=== PATIENT | female | born 1955 | race Caucasian/White ===

== ENCOUNTER 2018-01-20 11:58 | Outpatient (CLI) | payer MEDICARE, MEDICAID | END 2018-01-20 11:59 | disposition critical access hospital (66) | LOC: EMS 11:58 | PROVIDERS: ATTEND Surgery | DX: M54.5 Low back pain (principal); W00.0XXA Fall on same level due to ice and snow, initial encounter; Y93.01 Activity, walking, marching and hiking | CPT/HCPCS: A0425; A0429 ==

== ENCOUNTER 2018-01-20 12:36 | Emergency (ER) | payer MEDICARE, MEDICAID ==
[2018-01-20 12:54] VITALS: BP 172/107
--- NOTE | 2018-01-20 13:01 | ED Physician Documentation ---
PD HPI BACK INJURY - Stated complaint Stated Complaint: GLF - History obtained from History obtained from: Patient, EMS - History of Present Illness Type of injury: Fall (Slip and fall directly onto her back on the ice, she actually has no pain and was able to get up and walk around but an ambulance was called by a bystander. 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 HEENT: Tonsil/Adenoidectomy - Present Medications Home Medications: Ambulatory Orders Medication Instructions Recorded Confirmed Folic Acid 0.4 mg PO DAILY 04/11/13 04/11/13 Losartan [Cozaar] 25 mg PO DAILY 04/11/13 04/11/13 Montelukast [Singulair] 10 mg PO DAILY 04/11/13 04/11/13 lamoTRIgine [Lamotrigine] 200 mg PO DAILY 04/11/13 04/11/13 - Allergies Allergies/Adverse Reactions: Allergies Allergy/AdvReac Type Severity Reaction Status Date / Time No Known Drug Allergies Allergy Verified 04/12/13 11:32 - Social History Does the pt smoke?: No Smoking Status: Never smoker PD ED PE NORMAL - Vitals Vital signs reviewed: Yes - General General: Alert and oriented X 3, No acute distress - HEENT HEENT: PERRL, EOMI - Neck Neck: Supple, no meningeal sign, No bony TTP - Back Back: No CVA TTP, No spinal TTP - Neuro Neuro: Alert and oriented X 3, Normal speech - Psych Psych: Normal mood, Normal affect Results - Vitals Vitals: Vital Signs - 24 hr 01/20/18 12:50 Temperature 36.3 C L Heart Rate 70 Respiratory 16 Rate Blood Pressure 172/107 H O2 Saturation 99 Oxygen O2 Source Room air PD MEDICAL DECISION MAKING - ED course ED course: She presents after a ground-level fall without apparent injury, she has no bony tenderness of the spine and moved around both head and neck and back painlessly without any pain here and declined pain medication or imaging. Departure - Departure Disposition: 01 Home, Self Care Clinical Impression: Fall from ground level, Back sprain Condition: Good Record reviewed to determine appropriate education?: Yes Instructions: ED Low Back Pain Injury Comments: Call your doctor to arrange a follow-up appointment, make the next available appointment. In the interim, return anytime if worse or if new symptoms develop. Your blood pressure was elevated today on check into the emergency department. This does not mean that you have hypertension, it is a common phenomenon to come to the emergency department and have elevated blood pressure. I recommend that you see your primary care physician within the week to have it rechecked when you are feeling better.
== END 2018-01-20 13:16 | disposition home or self-care (01) ==
LOC: EDUNIT# → ED 12:36
DX: S33.5XXA Sprain of ligaments of lumbar spine, initial encounter (principal); W00.0XXA Fall on same level due to ice and snow, initial encounter; I10 Essential (primary) hypertension
CPT/HCPCS: 99283

== ENCOUNTER 2018-11-23 14:52 | Outpatient (CLI) | payer MEDICARE, MEDICAID | END 2018-11-23 14:53 | disposition EMS.NT | LOC: EMS 14:52 | PROVIDERS: ATTEND Surgery | DX: Z03.89 Encounter for observation for other suspected diseases and conditions ruled out (principal) ==

== ENCOUNTER 2020-03-09 14:10 | Outpatient (CLI) | payer MEDICARE, MEDICAID | END 2020-03-09 14:11 | disposition EMS.NT | LOC: EMS 14:10 | PROVIDERS: ATTEND Surgery | DX: R55 Syncope and collapse (principal) ==

== ENCOUNTER 2021-09-12 15:27 | Outpatient (CLI) | payer MEDICARE, MEDICAID | END 2021-09-12 15:28 | disposition EMS.NT | LOC: EMS 15:27 | DX: R55 Syncope and collapse (principal) ==

== ENCOUNTER 2021-09-13 12:55 | Outpatient (CLI) | payer MEDICARE, MEDICAID | END 2021-09-13 12:56 | disposition critical access hospital (66) | LOC: EMS 12:55 | DX: R55 Syncope and collapse (principal); R47.81 Slurred speech | CPT/HCPCS: A0425; A0427 ==

== ENCOUNTER 2021-09-13 14:07 | Inpatient (IN) | payer MEDICARE, MEDICAID ==
[2021-09-13 14:43] LABS: BASOPHILS % (AUTO) 0.4 %; EOSINOPHILS % (AUTO) 0.1 %; HCT - HEMATOCRIT 42.6 % (37.0-47.0); HGB - HEMOGLOBIN 13.8 g/dL (12.0-16.0); LYMPHOCYTES # (AUTO) 1.3 10^3/uL (1.5-3.5); MEAN CORPUSCULAR HEMOGLOBIN 28.6 pg (27.0-31.0); MEAN CORPUSCULAR HGB CONC 32.4 g/dL (32.0-36.0); MEAN CORPUSCULAR VOLUME 88.4 fL (81.0-99.0); MEAN PLATELET VOLUME 10.3 fL (7.9-10.8); MONOCYTES # (AUTO) 0.3 10^3/uL (0.0-1.0); MONOCYTES % (AUTO) 3.7 %; NEUTROPHILS # (AUTO) 5.8 10^3/uL (1.5-6.6); NEUTROPHILS % (AUTO) 78.5 %; PLT - PLATELET COUNT 300 10^3/uL (130-450); RED BLOOD COUNT 4.82 10^6/uL (4.20-5.40); RED CELL DISTRIBUTION WIDTH 13.2 % (12.0-15.0); WHITE BLOOD COUNT 7.4 x10^3/uL (4.8-10.8)
[2021-09-13 14:50] LABS: INR 1.1 (0.8-1.2); PT - PROTHROMBIN TIME 12.2 secs (9.9-12.6)
[2021-09-13 14:56] LABS: CK- CREATINE KINASE 56 IU/L (22-269); ETOH - ETHANOL < 5.0 mg/dL
[2021-09-13] MEDS ORDERED: IOVERSOL 320 100 ML VIAL IVP ONE ×2 (15:13→16:05)
[2021-09-13 15:19] LABS: ALBUMIN 4.3 g/dL (3.2-5.5); ALBUMIN/GLOBULIN RATIO 1.5 (1.0-2.2); CALCIUM 9.2 mg/dL (8.5-10.3); POTASSIUM 3.6 mmol/L (3.5-5.0); TOTAL PROTEIN 7.2 g/dL (6.7-8.2)
[2021-09-13 15:55] LABS: CORONAVIRUS 229E-RESP PCR NOT DETECTED; CORONAVIRUS HKU1-RESP PCR NOT DETECTED; CORONAVIRUS NL63-RESP PCR NOT DETECTED; CORONAVIRUS OC43-RESP PCR NOT DETECTED; HUMAN METAPNEUMOVIRUS NOT DETECTED; RHINOVIRUS/ENTEROVIRUS NOT DETECTED; SARS-CoV-2 -RESP PCR PANEL NOT DETECTED
[2021-09-13 15:56] LABS: B. PARAPERTUSSIS- RESP PCR PAN NOT DETECTED; B. PERTUSSIS- RESP PCR PANEL NOT DETECTED; C. PNEUMONIAE- RESP PCR PANEL NOT DETECTED; INFLUENZA A- RESP PCR PANEL NOT DETECTED; INFLUENZA B - RESP PCR PANEL NOT DETECTED; M. PNEUMONIAE- RESP PCR PANEL NOT DETECTED; PARAINFLUENZA VIRUS 1 NOT DETECTED; PARAINFLUENZA VIRUS 2 NOT DETECTED; PARAINFLUENZA VIRUS 3 NOT DETECTED; PARAINFLUENZA VIRUS 4 NOT DETECTED; RSV- RESP PCR PANEL NOT DETECTED
--- NOTE | 2021-09-13 16:13 | ED Physician Documentation ---
PD HPI ALTERED MENTAL STATUS - Stated complaint Stated Complaint: SLURRED SPEECH/SYNCOPE - Chief complaint Chief Complaint: Neuro - Additional information Additional information: Presents accompanied by EMS. They report that she had a 30-minute episode of confusion and difficulty with speech today. She was seen by EMS for similar presentation yesterday. She endorses for feeling well at this time. Otherwise relatively amnestic to the events that brought her into the emergency department today, when asked specifically why did EMS bring him in today she states "I am not sure" and is completely amnestic to the event that occurred yesterday. 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 HEENT: Tonsil/Adenoidectomy - Present Medications Home Medications: Ambulatory Orders Medication Instructions Recorded Confirmed Folic Acid 0.4 mg PO DAILY 04/11/13 04/11/13 Losartan [Cozaar] 25 mg PO DAILY 04/11/13 04/11/13 Montelukast [Singulair] 10 mg PO DAILY 04/11/13 04/11/13 lamoTRIgine [Lamotrigine] 200 mg PO DAILY 04/11/13 04/11/13 - Allergies Allergies/Adverse Reactions: Allergies Allergy/AdvReac Type Severity Reaction Status Date / Time No Known Drug Allergies Allergy Verified 09/13/21 14:17 - Social History Does the pt smoke?: No Smoking Status: Never smoker PD ED PE NORMAL - Vitals Vital signs reviewed: Yes - General General: Alert and oriented X 3 - HEENT HEENT: Atraumatic, PERRL, EOMI, Ears normal, Pharynx benign - Neck Neck: No JVD - Cardiac Cardiac: RRR - Respiratory Respiratory: No respiratory distress - Abdomen Abdomen: Normal bowel sounds - Female Female : Deferred - Rectal Rectal: Deferred - Derm Derm: Normal color - Extremities Extremities: No deformity - Neuro Neuro: Alert and oriented X 3, 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 ), Other Results - Vitals Vitals: Vital Signs - 24 hr 09/13/21 09/13/21 14:17 16:19 Temperature 36.9 C Heart Rate 102 H 87 Respiratory 20 17 Rate Blood Pressure 188/116 H 190/100 H O2 Saturation 98 99 Oxygen O2 Source Room air - EKG (time done) 1421 Rate: Rate (enter#) (92) Rhythm: NSR [place]: Normal Intervals: Normal SC QRS: Normal Ischemia: Normal ST segments Compare to prior EKG: Old EKG unavailable - Labs Labs: Laboratory Tests 09/13/21 09/13/21 09/13/21 14:35 14:35 14:35 WBC 7.4 RBC 4.82 Hgb 13.8 Hct 42.6 MCV 88.4 MCH 28.6 MCHC 32.4 RDW 13.2 Plt Count 300 MPV 10.3 Neut # (Auto) 5.8 Lymph # (Auto) 1.3 L Knott # (Auto) 0.3 Eos # (Auto) 0.0 Baso # (Auto) 0.0 Absolute Nucleated RBC 0.00 Nucleated RBC % 0.0 PT 12.2 INR 1.1 Sodium Potassium Chloride Carbon Dioxide Anion Gap BUN Creatinine Estimated GFR (MDRD) Glucose Calcium Total Bilirubin AST ALT Alkaline Phosphatase Total Creatine Kinase 56 Troponin I High Sens Total Protein Albumin Globulin Albumin/Globulin Ratio Nasal Adenovirus (PCR) Nasal B. parapertussis DNA (PCR) Nasal Coronavir 229E PCR Nasal Coronavir HKU1 PCR Nasal Coronavir NL63 PCR Nasal Coronavir OC43 PCR Nasal Enterovir/Rhinovir PCR Nasal Influenza B PCR Nasal Influenza A PCR Nasal Parainfluen 1 PCR Nasal Parainfluen 2 PCR Nasal Parainfluen 3 PCR Nasal Parainfluen 4 PCR Nasal RSV (PCR) Nasal B.pertussis DNA PCR Nasal C.pneumoniae (PCR) Neel Human Metapneumo PCR Nasal M.pneumoniae (PCR) Nasal SARS-CoV-2 (PCR) Ethyl Alcohol < 5.0 09/13/21 09/13/21 09/13/21 14:35 14:35 14:45 WBC RBC Hgb Hct MCV MCH MCHC RDW Plt Count MPV Neut # (Auto) Lymph # (Auto) Knott # (Auto) Eos # (Auto) Baso # (Auto) Absolute Nucleated RBC Nucleated RBC % PT INR Sodium 134 L Potassium 3.6 Chloride 101 Carbon Dioxide 24 Anion Gap 9.0 BUN 13 Creatinine 1.0 Estimated GFR (MDRD) 56 L Glucose 112 H Calcium 9.2 Total Bilirubin 1.0 AST 14 ALT 15 Alkaline Phosphatase 71 Total Creatine Kinase Troponin I High Sens 3.3 Total Protein 7.2 Albumin 4.3 Globulin 2.9 Albumin/Globulin Ratio 1.5 Nasal Adenovirus (PCR) NOT DETECTED Nasal B. parapertussis DNA (PCR) NOT DETECTED Nasal Coronavir 229E PCR NOT DETECTED Nasal Coronavir HKU1 PCR NOT DETECTED Nasal Coronavir NL63 PCR NOT DETECTED Nasal Coronavir OC43 PCR NOT DETECTED Nasal Enterovir/Rhinovir PCR NOT DETECTED Nasal Influenza B PCR NOT DETECTED Nasal Influenza A PCR NOT DETECTED Nasal Parainfluen 1 PCR NOT DETECTED Nasal Parainfluen 2 PCR NOT DETECTED Nasal Parainfluen 3 PCR NOT DETECTED Nasal Parainfluen 4 PCR NOT DETECTED Nasal RSV (PCR) NOT DETECTED Nasal B.pertussis DNA PCR NOT DETECTED Nasal C.pneumoniae (PCR) NOT DETECTED Neel Human Metapneumo PCR NOT DETECTED Nasal M.pneumoniae (PCR) NOT DETECTED Nasal SARS-CoV-2 (PCR) NOT DETECTED Ethyl Alcohol PD MEDICAL DECISION MAKING - ED course Complexity details: reviewed old records, reviewed results, considered differential, d/w patient ED course: After an episode of acute dysarthria and near syncope. Patient afebrile, hemodynamically stable on arrival to the emergency department. Nonfocal nonlateralizing neurologic exam. Demonstrated some perseverating speech and a slightly abnormal affect which EMS reported is consistent with her baseline. She did endorse for history of spinal meningitis at age 6 months. EKG nonacute. Labs within normal limits. CTA head and neck negative for acute occlusion. Patient did have some significant elevated blood pressure on arrival which down trended slightly during her stay in the emergency department but I did elect to treat with Lopressor. Given that it is possible that she is having recurrent transient ischemic attacks I did discuss her care with the hospital service. At this time she will be placed under an observation status for further evaluation and treatment. Departure - Departure Disposition: ED Place in Observation Clinical Impression: Altered mental status Condition: Fair
--- NOTE | 2021-09-13 16:18 | CT Report ---
PROCEDURE: ANGIO HEAD W/WO INDICATIONS: L sided facial droop CONTRAST: IV CONTRAST: Optiray 320 ml: 80 PO CONTRAST: *NO PO CONTRAST TECHNIQUE: Precontrast 4.5 mm thick angled axial sections acquired from the foramen magnum to the vertex. Afte r the administration of intravenous contrast, 1 mm thick sections acquired through the [place] of [place] is. Postcontrast 4.5 mm thick sections then re-acquired from the foramen magnum to the vertex. 3-di mensional toqobqi-ozxxosewk-nxhhbtiivq (MIP) and/or volume rendering reformats were acquired of the c entral intracranial vasculature. For radiation dose reduction, the following was used: automated ex posure control, adjustment of mA and/or kV according to patient size. COMPARISON: None FINDINGS: Image quality: Noncontrast head CT is significantly limited given motion artifact. Anterior circulation: Intracranial internal carotid arteries are normal in size and flow. The flow within the paired anterior cerebral arteries is normal and symmetric. The flow within the middle cer ebral arteries is normal and symmetric. The anterior communicating artery is seen. No aneurysms are seen. Posterior circulation: Visualized portions of the vertebral arteries demonstrate normal caliber, and join to form a normal appearing basilar artery. Flow within the posterior cerebral arteries is norm al and symmetric. Incidental note of persistent circulation on the right. No aneurysms are seen . CSF spaces: Within the limits of motion artifact on the noncontrast study. Ventricles are normal in size and shape. Basal cisterns are patent. No extra-axial fluid collections. Brain: Within the limits of motion artifact on the noncontrast study. No midline shift. No intracra nial bleeds or masses. Weiner-white matter interface appears intact. Skull and face: Calvarium and facial bones appear intact, without suspicious lesions. Sinuses: Mild mucosal thickening/mucous retention cysts within the left sphenoid sinus as well as the bilateral maxillary sinuses. IMPRESSION: Limited noncontrast examination given significant motion artifact. No acute intracranial abnormality. Unremarkable CTA of the head. Reviewed by: Terry Rodriguez DO on 09/13/2021 3:17 PM KARUNA Approved by: Terry Rodriguez DO on 09/13/2021 3:17 PM KARUNA Station ID: [id number]
--- NOTE | 2021-09-13 16:25 | CT Report ---
PROCEDURE: ANGIO NECK W INDICATIONS: L sided facial droop, L neck pain CONTRAST: IV CONTRAST: Optiray 320 ml: 80 PO CONTRAST: *NO PO CONTRAST TECHNIQUE: After the administration of intravenous contrast, 1.5 mm axial sections acquired from the aortic arch to the [place] of [place]. Coronal 3-D maximum intensity projection (MIP) and/or volume rendering ref ormats were then performed. For radiation dose reduction, the following was used: automated exposur e control, adjustment of mA and/or kV according to patient size. COMPARISON: None. FINDINGS: Image quality: Excellent. Carotid system: The great vessels demonstrate a conventional anatomy as they arise from the aortic a rch. The origins of the common carotid arteries appear patent. The common carotid arteries demonstr ate normal calibers and courses. The bifurcation regions appear normal bilaterally. The internal ca rotid arteries demonstrate normal caliber and course. Posterior circulation: The origins of the vertebral arteries appear patent. The more superior porti ons of the vertebral arteries demonstrate normal course and caliber. They join to form a normal appe aring basilar artery. Soft tissues: Visualized neck soft tissues demonstrate no suspicious abnormalities. The thyroid is normal in size and there are no incidental findings. Bones: No suspicious bony lesions. Multilevel degenerative changes of the cervical spine was C5-C6 and C6-C7 where there is complete intervertebral disc space loss. Mild multilevels of neural foramina l stenosis. No significant central canal stenosis. Straightening of the normal cervical lordosis. No significant listhesis. Mucosal thickening of the maxillary sinuses as well is likely mucus retention cysts and mucosal thickening of the left sphenoid sinus with mucous retention cyst. There is a periap ical lucency overlying a maxillary molar. IMPRESSION: No significant abnormality of the cervical arterial vasculature. Multilevel cervical spondylosis. Mild mucosal disease of the paranasal sinuses. There is periapical lucency overlying right maxillary molar which may contribute to above. Reviewed by: Terry Rodriguez DO on 09/13/2021 3:24 PM KARUNA Approved by: Terry Rodriguez DO on 09/13/2021 3:24 PM KARUNA Station ID: [id number]
[2021-09-13] MEDS ORDERED: METOPROLOL 5 MG/5 ML VIAL IVP STA (16:53)
[2021-09-13] MEDS ORDERED: ONDANSETRON ODT 4 MG TABLET TL PRN (16:57)
[2021-09-13] MEDS ORDERED: ONDANSETRON 4 MG/2 ML VIAL IVP PRN (16:57)
--- NOTE | 2021-09-13 17:20 | HISTORY & PHYSICAL EXAMINATION ---
Chief Complaint - Chief Complaint Chief Complaint: Confusion and aphasia for 30 minutes History of Present Illness - Admitted From Admitted From:: Home via ambulance - History Obtained From Records Reviewed: [facility] History obtained from: ER doctor Exam Limitations: None - History of Present Illness HPI Comment/Other: This is a 65-year-old female whose risk factors for stroke are high blood pressure but no family history, hyperlipidemia, diabetes. She had an episode of inability to speak yesterday. But by the time ambulance was called the episode resolved and she was surrounded by family and friends and felt safe enough to stay home. She did it again today. Ambulance was called and she was brought in. There is no localizing signs with this. Strictly inability to speak and confusion. There is no fever, chills, cough, shortness of breath. No GI symptoms. In the emergency room temperature was 36.9. Heart rate 102. Blood pressure 188/116. Respirations 20 and 98% on room air. Physical exam was normal. By the time she got to the emergency room speech was normal. However, she could not remember yesterday's event and she could not understand why she was in the emergency room. CT angiogram of the head and neck is negative. There is no acute intracranial process. The emergency room provider would like her placed in observation for TIA. He is aware that there is no MRI nor echocardiogram. He feels that observation for 16 to 18 hours would be sufficient and she can complete her work-up in the outpatient setting. 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 HEENT: reports: Tonsil/Adenoidectomy - Family & Social History Living arrangement: At home Meds/Allgy - Home Medications Home Medications: Ambulatory Orders Medication Instructions Recorded Confirmed Folic Acid 0.4 mg PO DAILY 04/11/13 04/11/13 Losartan [Cozaar] 25 mg PO DAILY 04/11/13 04/11/13 Montelukast [Singulair] 10 mg PO DAILY 04/11/13 04/11/13 lamoTRIgine [Lamotrigine] 200 mg PO DAILY 04/11/13 04/11/13 - Allergies Allergies/Adverse Reactions: Allergies Allergy/AdvReac Type Severity Reaction Status Date / Time No Known Drug Allergies Allergy Verified 09/13/21 14:17 Exam - Vital Signs Vital Signs: Vital Signs x48h Temp Pulse Resp BP Pulse Ox 09/13/21 16:19 87 17 190/100 H 99 09/13/21 14:17 36.9 C 102 H 20 188/116 H 98 Conclusion/Plan - Problem List (1) TIA (transient ischemic attack) Conclusion/Plan: Sudden confusion, lack of ability to speak. But no dysarthria or focal neurologic signs. 1 episode yesterday and one episode today. Plan: Aspirin Lipid panel in the morning Telemetry overnight Echocardiogram and MRI in the outpatient setting (2) Hypertension Conclusion/Plan: Resume her usual blood pressure medicine. Qualifiers: Hypertension type: primary hypertension Qualified Code(s): I10 - Essential (primary) hypertension - Lab Results Lab results reviewed: Yes Fish Bones: 09/13/21 14:35 09/13/21 14:35 Core Measures - Anticipated LOS I expect patient to be DC'd or transferred within 96 hours.: Yes - DVT/VTE - Prophylaxis VTE/DVT Device ordered at admit?: Yes
[2021-09-13 17:24] LABS: BILIRUBIN,URINE NEGATIVE (NEGATIVE); GLUCOSE, URINE (UA) NEGATIVE (NEGATIVE); KETONES,URINE (UA) NEGATIVE (NEGATIVE); LEUKOCYTE ESTERASE, URINE NEGATIVE (NEGATIVE); NITRITE,URINE NEGATIVE (NEGATIVE); OCCULT BLOOD,URINE NEGATIVE (NEGATIVE); PROTEIN,URINE NEGATIVE (NEGATIVE); UROBILINOGEN,URINE 0.2 (NORMAL) E.U./dL (NORMAL)
[2021-09-13 17:32] LABS: CLARITY,URINE CLEAR (CLEAR)
[2021-09-13 17:34] LABS: MUDS CUTOFF CONCENTRATIONS CUTOFF CONC BELOW:
[2021-09-13] MEDS ORDERED: NICARDIPINE HCL 25 MG in SODIUM CHLORIDE 0.9% 240 ML IV STA (17:36)
[2021-09-13] MEDS ORDERED: LABETALOL 20 MG/4 ML SYRINGE IVP STA (17:36)
--- NOTE | 2021-09-13 17:37 | ED Physician Documentation ---
ED Addendum - Addendum Addendum: 09/13/21 17:[address] Cope. Briefly this is a woman who had 2 TIAs in the last 24 hours and at signout had developed receptive and expressive aphasia again at 1705. Went back over to CT which I do not see anything concerning on. Spoke with Dr. Mosquera, telestroke neurologist who agreed with blood pressure control and he will see the patient and anticipates recommending TPA. 09/13/21 17:58 Dr lucas telestroke saw her. At that point her symptoms had pretty much resolve d. He offered TPA but the patient declined. Recommend stopping the Cardene drip that we had ordered, and dual antiplatelet therapy. Otherwise back to admitting the patient. Dr. Sapp was updated.
--- NOTE | 2021-09-13 17:41 | CT Report ---
PROCEDURE: Head W/O Stroke Protocol INDICATIONS: Aphasia TECHNIQUE: Noncontrast 4.5 mm thick angled axial sections acquired from the foramen magnum to the vertex, with c oronal reformats. For radiation dose reduction, the following was used: automated exposure control, adjustment of mA and/or kV according to patient size. COMPARISON: Same day CT and CTA of the head. FINDINGS: Image quality: Excellent. CSF spaces: Basal cisterns are patent. No extra-axial fluid collections. Ventricles are normal in size and shape. Brain: Brain density is within normal limits. No midline shift. No intracranial masses or hemorrhag e. Weiner-white matter interface is normal. Skull and face: Calvarium and visualized facial bones are intact, without suspicious lesions. Soft tissue density within the external auditory canals likely represents impacted cerumen. Sinuses: Left sphenoid sinus mucous retention cyst. The paranasal sinuses are otherwise clear. IMPRESSION: No acute intracranial abnormality. Specifically no acute intracranial hemorrhage. Findings discussed with the ordering provider Dr. Pritchard at approximately 1635 hours AST on This study fulfills neurological imaging criteria for inclusion or exclusion of acute stroke therapie s based on available published neurological imaging guidelines. Reviewed by: Terry Rodriguez DO on 09/13/2021 4:39 PM KARUNA Approved by: Terry Rodriguez DO on 09/13/2021 4:39 PM KARUNA Station ID: [id number]
[2021-09-13 17:46] LABS: AMPHETAMINE SCREEN,URINE NEGATIVE (NEGATIVE); BARBITURATE SCREEN,UR NEGATIVE (NEGATIVE); BENZODIAZEPINES SCREEN, URINE NEGATIVE (NEGATIVE); COCAINE SCREEN URINE NEGATIVE (NEGATIVE); METHADONE SCREEN, URINE NEGATIVE (NEGATIVE); METHAMPHETAMINES SCREEN, URINE NEGATIVE (NEGATIVE); OPIATE SCREEN, URINE NEGATIVE (NEGATIVE); OXYCODONE SCREEN, URINE NEGATIVE (NEGATIVE); PROPOXYPHENE SCREEN, URINE NEGATIVE (NEGATIVE); THC CANNABINOID SCREEN, URINE NEGATIVE (NEGATIVE); TRICYCLIC ANTIDEPRESSANT,URINE NEGATIVE (NEGATIVE)
[2021-09-13] MEDS: SODIUM CHLORIDE FLUSH 0.9% 10 ML SYRINGE IVP SCH ×2 (17:54→23:30)
[2021-09-13] MEDS ORDERED: CLOPIDOGREL 75 MG TABLET PO STA (17:56)
[2021-09-13] MEDS ORDERED: ASPIRIN EC 325 MG TABLET PO SCH (18:00)
[2021-09-13] MEDS ORDERED: hydrALAZINE INJ 20 MG/ML VIAL IVP ONE (18:58)
--- NOTE | 2021-09-13 19:18 | HISTORY & PHYSICAL EXAMINATION ---
Chief Complaint - Chief Complaint Chief Complaint: Difficulty speaking History of Present Illness - Admitted From Admitted From:: Home - History Obtained From Records Reviewed: Yes History obtained from: Patient, Daytime Hospitalist, EMR - History of Present Illness HPI Comment/Other: This is a 65-year-old female with a past medical history significant for hypertension who presents today due to difficulty speaking. She believes she had an episode yesterday that reoccurred this morning and so she was brought to the emergency department. While in the emergency department, she had another episode. She is not sure how long the episode lasted for this morning but believes the one in the emergency department was just for a few minutes. She reports her only symptom was difficulty speaking. She denied any weakness in her upper or lower extremities. Denies any headaches, change in vision, dizziness, lightheadedness. She does report a bit of nasal congestion which she attributes to allergic rhinitis. She does not take aspirin on a regular basis but does take it every once in a while for chronic right shoulder pain. She states she does have a history of hypertension but does not take any medications. She has not seen a physician in nearly 10 years since her previous physician retired. She currently feels back to baseline. She does not think she had a stroke but believes this may be a TIA. She states that she lives alone. Denies any drug use. Reports occasional alcohol use. In the emergency department, she is noted to be hypertensive. She another episode of expressive and receptive aphasia and so a telestroke was called. She was offered alteplase but the patient declined this. CT head showed no hemorrhage. CT of the head and neck showed no significant stenosis or occlusion. Neurology recommended continuing her on aspirin and Plavix. Given the above findings, the patient will be admitted for further management. We did discuss goals of care and she would like to be a full code. History - Past Medical History Cardiovascular: reports: Hypertension Respiratory: reports: Asthma Endocrine/Autoimmune: reports: None GI: reports: None : reports: None HEENT: reports: None Psych: reports: None Derm: reports: None - Past Surgical History Ortho: reports: Shoulder arthroplasty /MILK [employer]OR: reports: 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 HEENT: reports: Tonsil/Adenoidectomy - Family & Social History Family History Comment/Other: She reports her mother in 2018 from breast cancer. She states her maternal grandmother had a history of myocardial infarction and multiple strokes. Living arrangement: At home Living Situation: Alone Social History Notes: She lives at home alone. She is a non-smoker. She rarely drinks alcohol and denies illicit drug use. Meds/Allgy - Home Medications Home Medications: Ambulatory Orders Medication Instructions Recorded Confirmed Folic Acid 0.4 mg PO DAILY 04/11/13 04/11/13 Losartan [Cozaar] 25 mg PO DAILY 04/11/13 04/11/13 Montelukast [Singulair] 10 mg PO DAILY 04/11/13 04/11/13 lamoTRIgine [Lamotrigine] 200 mg PO DAILY 04/11/13 04/11/13 - Allergies Allergies/Adverse Reactions: Allergies Allergy/AdvReac Type Severity Reaction Status Date / Time No Known Drug Allergies Allergy Verified 09/13/21 14:17 Review of Systems - Constitutional Constitutional: denies: Fatigue, Fever, Chills, Malaise - Ears, Nose & Throat Ears, Nose & Throat: reports: Nasal congestion - Cardiovascular Cariovascular: denies: Chest pain, Edema, Lightheadedness, Syncope, Exertional dyspnea, Decr. exercise tolerance - Respiratory Respiratory: denies: Cough, SOB at rest - Gastrointestinal Gastrointestinal: denies: Abdominal pain, Diarrhea, Nausea - Genitourinary Genitourinary: denies: Dysuria, Frequency, Urgency, Hematuria - Musculoskeletal Musculoskeletal: reports: Limited range of motion, Joint pain. denies: Muscle weakness - Integumentary Integumentary: denies: Rash - Neurological Neurological: reports: Slurred speech. denies: Focal weakness, Headache, Dizziness, Numbness - Hematologic/Lymphatic Hematologic/Lymphatic: denies: Anemia, Bruising, Bleeding tendencies - All Other Systems All Other Systems: reports: Reviewed and negative Prior Level of Functionality: She is independent with her ADL's. Exam - Vital Signs Reviewed Vital Signs: Yes Vital Signs: Vital Signs x48h Temp Pulse Pulse Resp BP BP Pulse Ox 09/13/21 18:20 36.8 C 92 20 176/116 H 98 09/13/21 18:00 79 18 134/107 H 99 09/13/21 17:57 86 22 166/106 H 100 09/13/21 17:36 78 18 177/100 H 98 09/13/21 16:19 87 17 190/100 H 99 09/13/21 14:17 36.9 C 102 H 20 188/116 H 98 - Physical Exam General Appearance: positive: No acute distress, Alert Eyes Bilateral: positive: Normal inspection, Conjunctivae nml ENT: positive: ENT inspection nml Neck: positive: Nml inspection Respiratory: positive: No respiratory distress. negative: Wheezes, Rales Cardiovascular: positive: Regular rate & rhythm, No murmur. negative: Tachycard ia Abdomen: positive: Non-tender, No distention. negative: Tenderness Skin: positive: Warm, Dry Extremities: positive: No pedal edema Neurologic/Psychiatric: positive: CN's nml (2-12), Motor nml, Sensation nml. negative: Disoriented to person, Disoriented to place, Disoriented to time, Weakness, Sensory loss, Facial droop, Slurred/abnml speech Conclusion/Plan - Problem List (1) TIA (transient ischemic attack) Conclusion/Plan: She presents with expressive and receptive aphasia that began yesterday with which resolved after 30 minutes. She had another episode today while in the emergency department. She was offered alteplase by neurology but she declined this. Imaging showed no hemorrhage and CTA of the head and neck showed no significant stenosis or occlusion. She will be placed in observation for neuro checks. Unfortunately, we do not have MRI or echocardiogram available over the weekend. We will monitor on telemetry and start her on aspirin and Plavix as recommended by neurology. She also be started on Lipitor 40 mg in the evening. Check A1c and lipid panel. If she were to have another event then telestroke will need to be contacted. (2) Hypertension Conclusion/Plan: She is hypertensive with systolics in the 180s and diastolic in the 110s. Given concern for potential stroke versus TIA, we will hold her home antihypertensives for the time being and allow for permissive hypertension. Qualifiers: Hypertension type: primary hypertension Qualified Code(s): I10 - Essential (primary) hypertension - Lab Results Lab results reviewed: Yes Fish Bones: 09/13/21 14:35 09/13/21 14:35 - Diagnostic Imaging Results Diagnostic Imaging Results: positive: Final report reviewed - EKG Results EKG Interpreted Independently: Yes EKG Comparison: No prior EKG EKG Findings: EKG shows a sinus rhythm without evidence of ischemia. Core Measures - Anticipated LOS I expect patient to be DC'd or transferred within 96 hours.: Yes - Issues Hospital Issues and Management Plan: 65-year-old female presents with 2 episodes of expressive receptive aphasia. Concerns for TIA versus stroke. She be placed in observation started on aspirin/Plavix. No MRI or echo as they are not available over the weekend. - DVT/VTE - Prophylaxis VTE/DVT Device ordered at admit?: Yes VTE/DVT Prophylaxis med ordered at admit?: Yes
[2021-09-13] MEDS: ACETAMINOPHEN 325 MG TABLET PO PRN (20:51)
[2021-09-13] MEDS: ATORVASTATIN 40 MG TABLET PO SCH (20:51)
[2021-09-13] MEDS ORDERED: diphenhydrAMINE 25 MG CAPSULE PO PRN (21:08)
[2021-09-13] MEDS: oxyCODONE 5 MG TABLET PO PRN (21:31)
[2021-09-14] MEDS: ACETAMINOPHEN 325 MG TABLET PO PRN (03:54)
[2021-09-14 06:21] LABS: BASOPHILS % (AUTO) 0.5 %; EOSINOPHILS # (AUTO) 0.1 10^3/uL (0.0-0.7); EOSINOPHILS % (AUTO) 0.7 %; HCT - HEMATOCRIT 38.9 % (37.0-47.0); HGB - HEMOGLOBIN 12.7 g/dL (12.0-16.0); LYMPHOCYTES # (AUTO) 2.3 10^3/uL (1.5-3.5); LYMPHOCYTES % (AUTO) 26.3 %; MEAN CORPUSCULAR HEMOGLOBIN 28.7 pg (27.0-31.0); MEAN CORPUSCULAR HGB CONC 32.6 g/dL (32.0-36.0); MEAN PLATELET VOLUME 10.5 fL (7.9-10.8); MONOCYTES # (AUTO) 0.6 10^3/uL (0.0-1.0); MONOCYTES % (AUTO) 6.8 %; NEUTROPHILS # (AUTO) 5.7 10^3/uL (1.5-6.6); NEUTROPHILS % (AUTO) 65.4 %; PLT - PLATELET COUNT 294 10^3/uL (130-450); RED BLOOD COUNT 4.42 10^6/uL (4.20-5.40); RED CELL DISTRIBUTION WIDTH 13.2 % (12.0-15.0); WHITE BLOOD COUNT 8.7 x10^3/uL (4.8-10.8)
[2021-09-14 06:40] LABS: BUN - BLOOD UREA NITROGEN 13 mg/dL (6-20); CALCIUM 8.7 mg/dL (8.5-10.3); CARBON DIOXIDE - CO2 25 mmol/L (21-32); CHLORIDE 93 mmol/L (101-111); CHOL/HDL RATIO 4.6 (<4.4); CHOLESTEROL 202 mg/dL; CREATININE 0.9 mg/dL (0.4-1.0); GFR - MDRD 63 (>89); GLUCOSE 112 mg/dL (70-100); HDL CHOLESTEROL 44 mg/dL; LDL CHOLESTEROL,CALCULATED 141 mg/dL; LDL/HDL RATIO 3.2 (<4.4); POTASSIUM 3.1 mmol/L (3.5-5.0); SODIUM 128 mmol/L (135-145); TRIGLYCERIDES 86 mg/dL; VLDL CHOLESTEROL 17 mg/dL
--- NOTE | 2021-09-14 08:17 | PHARMACY PROGRESS NOTE ---
- Best Possible Medication History Admit Date and Time: 09/13/21 8363 Processed by: Pharmacy Medication History completed: Yes Patient Interview: Completed As the person ultimately responsible for medication therapy, providers are able to order a medication from an existing home medication list in [facility] via the "Reconcile Routine" prior to Confirmation of that medication by aviation support equipment repairer. Such practice is discouraged except when the physician, in their clinical ana gment, deems that a medical need exists for a medication without regard to previous use.
[2021-09-14] MEDS: ASPIRIN CHEW 81 MG TABLET PO SCH (08:45)
[2021-09-14] MEDS: oxyCODONE 5 MG TABLET PO PRN (08:45)
[2021-09-14] MEDS: CLOPIDOGREL 75 MG TABLET PO SCH (08:45)
[2021-09-14] MEDS: ENOXAPARIN 40 MG/0.4 ML SYRINGE SUBQ SCH (08:46)
[2021-09-14] MEDS: SODIUM CHLORIDE FLUSH 0.9% 10 ML SYRINGE IVP SCH ×2 (08:46→18:19)
[2021-09-14] MEDS ORDERED: lamoTRIgine 100 MG TABLET PO SCH (09:00)
[2021-09-14] MEDS ORDERED: LOSARTAN 50 MG TABLET PO SCH (09:00)
[2021-09-14 11:21] LABS: ESTIMATED AVERAGE GLUCOSE 117 mg/dL (70-100); HEMOGLOBIN A1c% 5.7 % (4.27-6.07)
[2021-09-14] MEDS ORDERED: hydrALAZINE INJ 20 MG/ML VIAL IVP ONE (15:56)
[2021-09-14] MEDS ORDERED: hydrALAZINE INJ 20 MG/ML VIAL ONE (16:00)
[2021-09-14] MEDS ORDERED: LORazepam 2 MG/ML VIAL IVP STA (16:28)
--- NOTE | 2021-09-14 16:32 | PROVIDER PROGRESS NOTE ---
Subjective - Prog Note Date Prog Note Date: 09/14/21 Prog Note Time: 16:56 - Subjective Subjective: This kourtney lady was alert, cheerful, nonstop talker. Could not give me much more history than was given in the emergency room. All her history is quite vague. Pharmacy verified her medications and she has not taken any medications for over 3 years. So the Lamictal and losartan we saw on her medication list was from 2012. She spent the day quietly. Ate breakfast and lunch. Nurse was in to assess her this afternoon. While in the room the patient suddenly turned her head to the left with torticollis. And then had a witnessed grand mal seizure. Current Medications - Current Medications Current Medications: Active Medications Acetaminophen (Acetaminophen 325 Mg Tablet) 650 mg PO Q4HR PRN PRN Reason: Pain 1 to 4 Last Admin: 09/14/21 03:54 Dose: 650 mg Documented by: Aspirin (Aspirin Chew 81 Mg Tablet) 81 mg PO DAILY [facility] Last Admin: 09/14/21 08:45 Dose: 81 mg Documented by: Atorvastatin Calcium (Atorvastatin 40 Mg Tablet) 40 mg PO QPM [facility] Last Admin: 09/13/21 20:51 Dose: 40 mg Documented by: Clopidogrel Bisulfate (Clopidogrel 75 Mg Tablet) 75 mg PO DAILY [facility] Last Admin: 09/14/21 08:45 Dose: 75 mg Documented by: Diphenhydramine HCl (Diphenhydramine 25 Mg Capsule) 25 mg PO QPM PRN PRN Reason: Insomnia Last Admin: 09/13/21 21:31 Dose: 25 mg Documented by: Enoxaparin Sodium (Enoxaparin 40 Mg/0.4 Ml Syringe) 40 mg SUBQ DAILY [facility] Last Admin: 09/14/21 08:46 Dose: 40 mg Documented by: Levetiracetam 500 mg/ Sodium (Chloride) 105 mls @ 400 mls/hr IV BID [facility] Ondansetron HCl (Ondansetron Odt 4 Mg Tablet) 4 mg TL Q6HR PRN PRN Reason: Nausea / Vomiting Ondansetron HCl (Ondansetron 4 Mg/2 Ml Vial) 4 mg IVP Q6HR PRN PRN Reason: Nausea / Vomiting Oxycodone HCl (Oxycodone 5 Mg Tablet) 5 mg PO Q4HR PRN PRN Reason: Pain 5 to 7 Last Admin: 09/14/21 08:45 Dose: 5 mg Documented by: Sodium Chloride (Sodium Chloride Flush 0.9% 10 Ml Syringe) 10 ml IVP PRN PRN PRN Reason: NEEDED PER PROVIDER ORDERS Sodium Chloride (Sodium Chloride Flush 0.9% 10 Ml Syringe) 10 ml IVP 0100,0900,1700 CRISTY Last Admin: 09/14/21 08:46 Dose: 10 ml Documented by: Acetaminophen [Tylenol] 325 - 650 mg PO Q6H PRN 09/14/21 Objective - Vital Signs/Intake & Output Reviewed Vital Signs: Yes Vital Signs: Vital Signs x48h Temp Pulse Resp BP Pulse Ox 09/14/21 15:54 86 21 205/109 H 99 09/14/21 15:45 37.3 C 84 19 158/92 H 94 09/14/21 13:00 36.7 C 69 20 168/93 H 99 09/14/21 08:30 36.6 C 74 18 135/84 H 99 Intake & Output: Intake & Output 09/11/21 09/12/21 09/13/21 09/14/21 23:59 23:59 23:59 23:59 Intake Total 400 3220 Output Total 1600 Balance 400 1620 - Objective General Appearance: positive: Other (Postictal. Moaning. Pupils pinpoint.) Eyes Bilateral: positive: EOMI ENT: positive: No signs of dehydration Neck: positive: No JVD. negative: Stiff neck Respiratory: positive: Other (Fast, shallow respiration after the seizure). negative: Wheezes, Rales, Rhonchi Cardiovascular: positive: Tachycardia. negative: Gallop/S4, Friction rub Abdomen: positive: Non-tender, No organomegaly, Nml bowel sounds, No distention, Other (obese) Skin: positive: Warm, Diaphoresis, Pallor Extremities: positive: Full ROM (she is spontaneously moving arms and legs restlessly), No pedal edema Neurologic/Psychiatric: positive: Other (post ictal with no response to voice. does withdraw to pain. toes downgoing. spontaneously moving arms and legs. BP run twice and it's 210/109 and then 205/109) - Lab Results Fish Bones: 09/14/21 05:30 09/14/21 05:30 Other Labs: Lab Results x24hrs 09/14/21 09/14/21 09/14/21 Range/Units 05:30 05:30 05:30 WBC 8.7 (4.8-10.8) x10^3/uL RBC 4.42 (4.20-5.40) 10^6/uL Hgb 12.7 (12.0-16.0) g/dL Hct 38.9 (37.0-47.0) % MCV 88.0 (81.0-99.0) fL MCH 28.7 (27.0-31.0) pg MCHC 32.6 (32.0-36.0) g/dL RDW 13.2 (12.0-15.0) % Plt Count 294 (130-450) 10^3/uL MPV 10.5 (7.9-10.8) fL Neut # (Auto) 5.7 (1.5-6.6) 10^3/uL Lymph # (Auto) 2.3 (1.5-3.5) 10^3/uL [place] # (Auto) 0.6 (0.0-1.0) 10^3/uL Eos # (Auto) 0.1 (0.0-0.7) 10^3/uL Baso # (Auto) 0.0 (0.0-0.1) 10^3/uL Absolute Nucleated RBC 0.00 x10^3/uL Nucleated RBC % 0.0 /100WBC Sodium 128 L (135-145) mmol/L Potassium 3.1 L (3.5-5.0) mmol/L Chloride 93 L (101-111) mmol/L Carbon Dioxide 25 (21-32) mmol/L Anion Gap 10.0 (6-13) BUN 13 (6-20) mg/dL Creatinine 0.9 (0.4-1.0) mg/dL Estimated GFR (MDRD) 63 L (>89) Glucose 112 H (70-100) mg/dL Estimat Average Glucose 117 H (70-100) mg/dL Hemoglobin A1c % 5.7 (4.27-6.07) % Calcium 8.7 (8.5-10.3) mg/dL Triglycerides 86 ( - 149) mg/dL Cholesterol 202 H ( - 199) mg/dL LDL Cholesterol, Calc 141 H ( - 129) mg/dL VLDL Cholesterol 17 mg/dL HDL Cholesterol 44 L (60 - ) mg/dL LDL/HDL Ratio 3.2 (<4.4) Cholesterol/HDL Ratio 4.6 (<4.4) Urine Color Urine Clarity (CLEAR) Urine pH (5.0-7.5) PH Ur Specific [place] (1.002-1.030) Urine Protein (NEGATIVE) mg/dL Urine Glucose (UA) (NEGATIVE) mg/dL Urine Ketones (NEGATIVE) mg/dL Urine Occult Blood (NEGATIVE) Urine Nitrite (NEGATIVE) Urine Bilirubin (NEGATIVE) Urine Urobilinogen (NORMAL) E.U./dL Ur Leukocyte Esterase (NEGATIVE) Ur Microscopic Review Urine Culture Comments Urine Opiates Screen (NEGATIVE) Ur Oxycodone Screen (NEGATIVE) Urine Methadone Screen (NEGATIVE) Ur Propoxyphene Screen (NEGATIVE) Ur Barbiturates Screen (NEGATIVE) Ur Tricyclics Screen (NEGATIVE) Ur Phencyclidine Scrn (NEGATIVE) Ur Amphetamine Screen (NEGATIVE) U Methamphetamines Scrn (NEGATIVE) U Benzodiazepines Scrn (NEGATIVE) Urine Cocaine Screen (NEGATIVE) U Cannabinoids Screen (NEGATIVE) 09/13/21 09/13/21 Range/Units 17:14 17:14 WBC (4.8-10.8) x10^3/uL RBC (4.20-5.40) 10^6/uL Hgb (12.0-16.0) g/dL Hct (37.0-47.0) % MCV (81.0-99.0) fL MCH (27.0-31.0) pg MCHC (32.0-36.0) g/dL RDW (12.0-15.0) % Plt Count (130-450) 10^3/uL MPV (7.9-10.8) fL Neut # (Auto) (1.5-6.6) 10^3/uL Lymph # (Auto) (1.5-3.5) 10^3/uL [place] # (Auto) (0.0-1.0) 10^3/uL Eos # (Auto) (0.0-0.7) 10^3/uL Baso # (Auto) (0.0-0.1) 10^3/uL Absolute Nucleated RBC x10^3/uL Nucleated RBC % /100WBC Sodium (135-145) mmol/L Potassium (3.5-5.0) mmol/L Chloride (101-111) mmol/L Carbon Dioxide (21-32) mmol/L Anion Gap (6-13) BUN (6-20) mg/dL Creatinine (0.4-1.0) mg/dL Estimated GFR (MDRD) (>89) Glucose (70-100) mg/dL Estimat Average Glucose (70-100) mg/dL Hemoglobin A1c % (4.27-6.07) % Calcium (8.5-10.3) mg/dL Triglycerides ( - 149) mg/dL Cholesterol ( - 199) mg/dL LDL Cholesterol, Calc ( - 129) mg/dL VLDL Cholesterol mg/dL HDL Cholesterol (60 - ) mg/dL LDL/HDL Ratio (<4.4) Cholesterol/HDL Ratio (<4.4) Urine Color YELLOW Urine Clarity CLEAR (CLEAR) Urine pH 7.0 (5.0-7.5) PH Ur Specific [place] 1.010 (1.002-1.030) Urine Protein NEGATIVE (NEGATIVE) mg/dL Urine Glucose (UA) NEGATIVE (NEGATIVE) mg/dL Urine Ketones NEGATIVE (NEGATIVE) mg/dL Urine Occult Blood NEGATIVE (NEGATIVE) Urine Nitrite NEGATIVE (NEGATIVE) Urine Bilirubin NEGATIVE (NEGATIVE) Urine Urobilinogen 0.2 (NORMAL) (NORMAL) E.U./dL Ur Leukocyte Esterase NEGATIVE (NEGATIVE) Ur Microscopic Review NOT INDICATED Urine Culture Comments NOT INDICATED Urine Opiates Screen NEGATIVE (NEGATIVE) Ur Oxycodone Screen NEGATIVE (NEGATIVE) Urine Methadone Screen NEGATIVE (NEGATIVE) Ur Propoxyphene Screen NEGATIVE (NEGATIVE) Ur Barbiturates Screen NEGATIVE (NEGATIVE) Ur Tricyclics Screen NEGATIVE (NEGATIVE) Ur Phencyclidine Scrn NEGATIVE (NEGATIVE) Ur Amphetamine Screen NEGATIVE (NEGATIVE) U Methamphetamines Scrn NEGATIVE (NEGATIVE) U Benzodiazepines Scrn NEGATIVE (NEGATIVE) Urine Cocaine Screen NEGATIVE (NEGATIVE) U Cannabinoids Screen NEGATIVE (NEGATIVE) Assessment/Plan - Problem List (1) Seizure Impression: Witnessed. Nurse was getting vital signs when she suddenly started exhibiting torticollis and rotating her head to the left. Then full on grand mal seizure. Eyes were deviated up into the left. Seizure lasted less than a minute. She is currently postictal.Differential diagnosis would include stroke, or new seizure disorder or PRES Plan: Hydralazine [address] stroke protocol (2) TIA (transient ischemic attack) Conclusion/Plan: She presents with expressive and receptive aphasia that began 09/12 with which resolved after 30 minutes. She had another episode 09/13 while in the emergency department. She was offered alteplase by neurology but she declined this. Imaging showed no hemorrhage and CTA of the head and neck showed no significant stenosis or occlusion. She was placed in observation for neuro checks. Unfortunately, we do not have MRI or echocardiogram available over the weekend. We are monitoring on telemetry and no arrhythmias so far and start her on aspirin and Plavix as recommended by neurology. She was also started on Lipitor 40 mg in the evening. If she were to have another event then telestroke will need to be contacted. She has not had another episode of expressive and receptive aphasia. However she has had a seizure. Witnessed. Nurse was getting vital signs when she suddenly started exhibiting torticollis and rotating her head to the left. Then full on grand mal seizure. Eyes were deviated up into the left. Seizure lasted less than a minute. She is currently postictal. (3) Hypertension Conclusion/Plan: She is hypertensive with systolics in the 180s and diastolic in the 110s. Given concern for potential stroke versus TIA, we were holding her home antihypertensives for the time being and allow for permissive hypertension. And admission. Today we find out from pharmacy that she has not filled her prescriptions for blood pressure medicine in years. The last time she was seen may have been more than 3 years ago. So she is not on any medications for blood pressure. This morning she continued to have lack of any neurological symptoms. Cozaar was resumed. This afternoon with a blood pressure of over 200 systolic and 110 diastolic she had a seizure. I am giving her 1 dose of hydralazine. Qualifiers: Hypertension type: primary hypertension Qualified Code(s): I10 - Essential (primary) hypertension
[2021-09-14] MEDS ORDERED: LORazepam 2 MG/ML VIAL ONE (16:35)
--- NOTE | 2021-09-14 17:18 | CT Report ---
PROCEDURE: Head W/O Stroke Protocol INDICATIONS: left eye deviation, seizure TECHNIQUE: Noncontrast 4.5 mm thick angled axial sections acquired from the foramen magnum to the vertex, with c oronal reformats. For radiation dose reduction, the following was used: automated exposure control, adjustment of mA and/or kV according to patient size. COMPARISON: CT head and CTA head and neck dated 09/13/2021 FINDINGS: Image quality: Excellent. CSF spaces: Basal cisterns are patent. No extra-axial fluid collections. Ventricles are normal in size and shape. Brain: No midline shift. No mass effect. No intracranial masses or hemorrhage. Weiner-white matter i nterface is normal. Skull and face: Calvarium and visualized facial bones are intact, without suspicious lesions. Sinuses: Mild mucosal thickening/mucous retention cysts noted within the left sphenoid and bilateral maxillary sinuses. IMPRESSION: Stable head CT without evidence of acute intracranial bleed. Specifically no evidence of acute intrac ranial hemorrhage. Findings discussed with ER provider Dr. Pritchard over the telephone by Dr. Terry Rodriguez at approximately 1615 hours AST on 09/14/2021 This study fulfills neurological imaging criteria for inclusion or exclusion of acute stroke therapie s based on available published neurological imaging guidelines. Reviewed by: Terry Rodriguez DO on 09/14/2021 4:17 PM KARUNA Approved by: Terry Rodriguez DO on 09/14/2021 4:17 PM KARUNA Station ID: [id number]
[2021-09-14] MEDS: levETIRAcetam INJ 500 MG in SODIUM CHLORIDE 0.9% 100ML 100 ML IV SCH ×2 (18:47→21:34)
[2021-09-14] MEDS: SODIUM CHLORIDE FLUSH 0.9% 10 ML SYRINGE IVP PRN ×2 (20:43→21:34)
[2021-09-14] MEDS: ATORVASTATIN 40 MG TABLET PO SCH (21:33)
[2021-09-15] MEDS ORDERED: HALOPERIDOL 5 MG/ML VIAL IVP PRN (00:44)
[2021-09-15] MEDS: SODIUM CHLORIDE FLUSH 0.9% 10 ML SYRINGE IVP SCH ×3 (01:13→17:31)
[2021-09-15 05:24] LABS: BASOPHILS # (AUTO) 0.1 10^3/uL (0.0-0.1); BASOPHILS % (AUTO) 0.4 %; EOSINOPHILS % (AUTO) 0.1 %; HCT - HEMATOCRIT 39.3 % (37.0-47.0); HGB - HEMOGLOBIN 13.1 g/dL (12.0-16.0); LYMPHOCYTES % (AUTO) 11.7 %; MEAN CORPUSCULAR HEMOGLOBIN 28.6 pg (27.0-31.0); MEAN CORPUSCULAR HGB CONC 33.3 g/dL (32.0-36.0); MEAN CORPUSCULAR VOLUME 85.8 fL (81.0-99.0); MEAN PLATELET VOLUME 10.7 fL (7.9-10.8); MONOCYTES # (AUTO) 0.9 10^3/uL (0.0-1.0); MONOCYTES % (AUTO) 5.3 %; NEUTROPHILS # (AUTO) 14.1 10^3/uL (1.5-6.6); NEUTROPHILS % (AUTO) 81.9 %; PLT - PLATELET COUNT 277 10^3/uL (130-450); RED BLOOD COUNT 4.58 10^6/uL (4.20-5.40); RED CELL DISTRIBUTION WIDTH 12.6 % (12.0-15.0); WHITE BLOOD COUNT 17.1 x10^3/uL (4.8-10.8)
[2021-09-15 05:55] LABS: CALCIUM 8.7 mg/dL (8.5-10.3); CREATININE 0.8 mg/dL (0.4-1.0); MAGNESIUM 1.9 mg/dL (1.7-2.8)
[2021-09-15] MEDS: SODIUM CHLORIDE 0.9% 1,000 ML IV SCH ×2 (07:07→16:15)
[2021-09-15] MEDS: SODIUM CHLORIDE FLUSH 0.9% 10 ML SYRINGE IVP PRN (07:07)
[2021-09-15] MEDS: ENOXAPARIN 40 MG/0.4 ML SYRINGE SUBQ SCH (08:51)
[2021-09-15] MEDS: CLOPIDOGREL 75 MG TABLET PO SCH (08:51)
[2021-09-15] MEDS: ASPIRIN CHEW 81 MG TABLET PO SCH (08:51)
[2021-09-15] MEDS: POTASSIUM CHLORIDE 20 MEQ TABLET PO SCH ×4 (08:52→18:50)
[2021-09-15] MEDS: NEUTRA-PHOS 250 MG TABLET PO SCH ×2 (08:52→11:14)
[2021-09-15] MEDS: levETIRAcetam INJ 500 MG in SODIUM CHLORIDE 0.9% 100ML 100 ML IV SCH (10:09)
[2021-09-15] MEDS: ACETAMINOPHEN 325 MG TABLET PO PRN ×2 (11:13→20:42)
[2021-09-15 12:24] LABS: CALCIUM 8.8 mg/dL (8.5-10.3); CREATININE 0.9 mg/dL (0.4-1.0)
--- NOTE | 2021-09-15 18:12 | PROVIDER PROGRESS NOTE ---
Progress Note September 15, 2021 6:10 PM The patient presented as expressive aphasia for 30 minutes. It happened the day before she was admitted. It resolved on its own and she never came in and sent the ambulance away. She then returned on the day of admission with expressive and receptive aphasia for about another half hour. This time she came to the emergency room. She had another episode in the emergency room. She was seen by telestroke who offered her TPA and she declined. She was placed in observation so that she can get an MRI and echocardiogram today. However, on September 14 the patient had a witnessed grand mal seizure. Although I ordered Keppra and Ativan, the patient did not receive it because the CT was done promptly. While in CT she had another 2 seizures. Probably mild aspiration. She is now on Keppra. In reviewing her past medical history when she did have a primary care provider, she has a seizure disorder and stopped taking her medications 3 years ago. She is now on Keppra. Very somnolent today. Gradually waking up. Active Medications Acetaminophen (Acetaminophen 325 Mg Tablet) 650 mg PO Q4HR PRN PRN Reason: Pain 1 to 4 Last Admin: 09/15/21 11:13 Dose: 650 mg Documented by: Aspirin (Aspirin Chew 81 Mg Tablet) 81 mg PO DAILY [facility] Last Admin: 09/15/21 08:51 Dose: 81 mg Documented by: Atorvastatin Calcium (Atorvastatin 40 Mg Tablet) 40 mg PO QPM [facility] Last Admin: 09/14/21 21:33 Dose: Not Given Documented by: Clopidogrel Bisulfate (Clopidogrel 75 Mg Tablet) 75 mg PO DAILY [facility] Last Admin: 09/15/21 08:51 Dose: 75 mg Documented by: Diphenhydramine HCl (Diphenhydramine 25 Mg Capsule) 25 mg PO QPM PRN PRN Reason: Insomnia Last Admin: 09/13/21 21:31 Dose: 25 mg Documented by: Enoxaparin Sodium (Enoxaparin 40 Mg/0.4 Ml Syringe) 40 mg SUBQ DAILY [facility] Last Admin: 09/15/21 08:51 Dose: 40 mg Documented by: Haloperidol (Haloperidol 5 Mg/Ml Vial) 1 mg IVP Q6H PRN PRN Reason: Agitation Last Admin: 09/15/21 01:12 Dose: 1 mg Documented by: Sodium Chloride (Normal Saline 0.9%) 1,000 mls @ 125 mls/hr IV .Q8H [facility] Last Admin: 09/15/21 16:15 Dose: 125 mls/hr Documented by: Levetiracetam (Levetiracetam 250 Mg Tablet) 500 mg PO BID [facility] Losartan Potassium (Losartan 50 Mg Tablet) 50 mg PO DAILY [facility] Ondansetron HCl (Ondansetron Odt 4 Mg Tablet) 4 mg TL Q6HR PRN PRN Reason: Nausea / Vomiting Ondansetron HCl (Ondansetron 4 Mg/2 Ml Vial) 4 mg IVP Q6HR PRN PRN Reason: Nausea / Vomiting Last Admin: 09/14/21 20:43 Dose: 4 mg Documented by: Oxycodone HCl (Oxycodone 5 Mg Tablet) 5 mg PO Q4HR PRN PRN Reason: Pain 5 to 7 Last Admin: 09/14/21 08:45 Dose: 5 mg Documented by: Potassium Chloride (Potassium Chloride 20 Meq Tablet) 20 meq PO Q2H [facility]; Protocol Stop: 09/15/21 19:01 Last Admin: 09/15/21 17:31 Dose: 20 meq Documented by: Sodium Chloride (Sodium Chloride Flush 0.9% 10 Ml Syringe) 10 ml IVP PRN PRN PRN Reason: NEEDED PER PROVIDER ORDERS Last Admin: 09/15/21 07:07 Dose: 10 ml Documented by: Sodium Chloride (Sodium Chloride Flush 0.9% 10 Ml Syringe) 10 ml IVP 0100,0900,1700 [facility] Last Admin: 09/15/21 17:31 Dose: 10 ml Documented by: Acetaminophen [Tylenol] 325 - 650 mg PO Q6H PRN 09/14/21 Temperature is 36.9. Heart rate is 107. Blood pressure 170/108. She has been moderately hypertensive all day long. Respiration was 21, now 28. She is 98% on room air. She has been able to get up to go to the bathroom, ambulates in the room. Very forgetful today. Yesterday she was bright, alert, cheerful. Today needs constant reminders of where she is and why she is here. More restless. Needs constant prompting. Neck is supple, Lungs have decreased breath sounds but no crackles or rhonchi or increased respiratory effort Abdomen is soft, nontender. She is wearing a pad for incontinence. Neurologically very different from yesterday. Garbled speech at times. Staggering gait. She has not had a seizure since yesterday on the CT table. Head CT is stable without evidence of acute intracranial bleed. Sodium 125, potassium 3. She was supplemented and is again 3. BUN and creatinine are normal. White cell count is 17.1 hemoglobin 13.1 Assessment/plan 1. Seizure disorder. It now seems, putting together all of the data, that she may have had a seizure manifestation the day before admission, on the day of admission. And then went on to a full grand mal seizure. She has not taken seizure medications for several years now. Mainly because she is not followed up with a primary care provider. She is now on Keppra. Hopefully her encephalopathy will improve. 2. Hyponatremia. This patient has hyponatremia that appears to have worsened during her stay. She is now on normal saline. We will recheck in a.m. 3. Hypokalemia this been chronic. In spite of supplementation still with a low potassium. We will supplement again this afternoon and recheck tomorrow. 3. Leukocytosis. She is afebrile. 98% on room air. Did have aspiration in the CT scanner. We will continue to monitor for signs of aspiration pneumonitis. Currently exam is negative and does not need antibiotics. 5. Uncontrolled hypertension. She does not take any medications at home. In the past she has a history of hypertension and was on medication. Again no primary care provider for years and no medications for years. Currently on Cozaar 50 mg a day. We will add hydralazine as needed.
[2021-09-15] MEDS: hydrALAZINE INJ 20 MG/ML VIAL IVP PRN (18:49)
[2021-09-15] MEDS: POTASSIUM CHLOR 10 MEQ/100 ML 10 MEQ/100 ML BAG IV SCH ×5 (18:51→23:06)
[2021-09-15] MEDS: levETIRAcetam 250 MG TABLET PO SCH (20:42)
[2021-09-15] MEDS: ATORVASTATIN 40 MG TABLET PO SCH (20:42)
[2021-09-16] MEDS: SODIUM CHLORIDE 0.9% 1,000 ML IV SCH ×2 (00:16→20:40)
[2021-09-16] MEDS: POTASSIUM CHLOR 10 MEQ/100 ML 10 MEQ/100 ML BAG IV SCH ×3 (00:16→02:38)
[2021-09-16] MEDS: SODIUM CHLORIDE FLUSH 0.9% 10 ML SYRINGE IVP SCH ×3 (00:17→18:10)
[2021-09-16 05:11] LABS: BASOPHILS % (AUTO) 0.4 %; EOSINOPHILS # (AUTO) 0.2 10^3/uL (0.0-0.7); EOSINOPHILS % (AUTO) 2.8 %; HCT - HEMATOCRIT 39.6 % (37.0-47.0); HGB - HEMOGLOBIN 13.1 g/dL (12.0-16.0); LYMPHOCYTES % (AUTO) 13.4 %; MEAN CORPUSCULAR HEMOGLOBIN 28.4 pg (27.0-31.0); MEAN CORPUSCULAR HGB CONC 33.1 g/dL (32.0-36.0); MEAN CORPUSCULAR VOLUME 85.9 fL (81.0-99.0); MEAN PLATELET VOLUME 10.6 fL (7.9-10.8); MONOCYTES # (AUTO) 0.5 10^3/uL (0.0-1.0); MONOCYTES % (AUTO) 6.3 %; NEUTROPHILS # (AUTO) 5.9 10^3/uL (1.5-6.6); NEUTROPHILS % (AUTO) 76.5 %; PLT - PLATELET COUNT 268 10^3/uL (130-450); RED BLOOD COUNT 4.61 10^6/uL (4.20-5.40); RED CELL DISTRIBUTION WIDTH 13.3 % (12.0-15.0); WHITE BLOOD COUNT 7.8 x10^3/uL (4.8-10.8)
[2021-09-16 05:31] LABS: CALCIUM 8.6 mg/dL (8.5-10.3); CREATININE 0.7 mg/dL (0.4-1.0); MAGNESIUM 2.1 mg/dL (1.7-2.8); POTASSIUM 3.8 mmol/L (3.5-5.0)
[2021-09-16] MEDS: NEUTRA-PHOS 250 MG TABLET PO SCH ×2 (06:57→10:17)
[2021-09-16] MEDS ORDERED: METOPROLOL 5 MG/5 ML VIAL IVP PRN (07:58)
--- NOTE | 2021-09-16 08:01 | PROVIDER PROGRESS NOTE ---
Assessment/Plan - Problem List (1) Seizure Assessment/Plan: Has history of seizures. She is supposed to be on Antiseizure medications but states that she stopped taking them after her primary care physician retired in 2017. She has not seen/establish care since then. Currently on Keppra 500 mg p.o. twice daily. MRI brain without contrast pending. Seizure could also have been precipitated by hyponatremia. She had a sodium level of 121. Etiology undetermined. Current sodium level is 136. Patient is currently alert and oriented x4. (2) Hyponatremia Assessment/Plan: Etiology undetermined. Sodium level improved with IV hydration with normal saline. Sodium level currently 136. Patient is on D5 half-normal saline currently. (3) Leukocytosis Assessment/Plan: Likely reactive. Resolved. White blood cell count yesterday was 17.1. Today it is 7.8 (4) Hypertension Assessment/Plan: On losartan 50 mg p.o. daily. Hydralazine 10 mg IV 3 times daily as needed and metoprolol 5 mg IV every 6 hours as needed ordered. - Current Meds Current Meds: Current Medications Generic Name Dose Route Start Last Admin Trade Name Freq PRN Reason Stop Dose Admin Acetaminophen 650 mg 09/13/21 16:57 09/15/21 20:42 Acetaminophen 325 Mg Tablet PO 650 mg Q4HR PRN Administration Pain 1 to 4 Aspirin 81 mg 09/14/21 09:00 09/15/21 08:51 Aspirin Chew 81 Mg Tablet PO 81 mg DAILY CRISTY Administration Atorvastatin Calcium 40 mg 09/13/21 21:00 09/15/21 20:42 Atorvastatin 40 Mg Tablet PO 40 mg QPM CRISTY Administration Clopidogrel Bisulfate 75 mg 09/14/21 09:00 09/15/21 08:51 Clopidogrel 75 Mg Tablet PO 75 mg DAILY CRISTY Administration Diphenhydramine HCl 25 mg 09/13/21 21:08 09/13/21 21:31 Diphenhydramine 25 Mg Capsule PO 25 mg QPM PRN Administration Insomnia Enoxaparin Sodium 40 mg 09/14/21 09:00 09/15/21 08:51 Enoxaparin 40 Mg/0.4 Ml Syringe SUBQ 40 mg DAILY CRISTY Administration Haloperidol 1 mg 09/15/21 00:44 09/15/21 01:12 Haloperidol 5 Mg/Ml Vial IVP 1 mg Q6H PRN Administration Agitation Hydralazine HCl 10 mg 09/15/21 18:18 09/15/21 18:49 Hydralazine Inj 20 Mg/Ml Vial IVP 10 mg TID PRN Administration Hypertensive Emergency Levetiracetam 500 mg 09/15/21 21:00 09/15/21 20:42 Levetiracetam 250 Mg Tablet PO 500 mg BID CRISTY Administration Ondansetron HCl 4 mg 09/13/21 16:57 09/14/21 20:43 Ondansetron 4 Mg/2 Ml Vial IVP 4 mg Q6HR PRN Administration Nausea / Vomiting Oxycodone HCl 5 mg 09/13/21 16:57 09/14/21 08:45 Oxycodone 5 Mg Tablet PO 5 mg Q4HR PRN Administration Pain 5 to 7 Sodium Chloride 10 ml 09/13/21 16:57 09/15/21 07:07 Sodium Chloride Flush 0.9% 10 Ml Syringe IVP 10 ml PRN PRN Administration NEEDED PER PROVIDER ORDERS Sodium Chloride 10 ml 09/13/21 17:00 09/16/21 00:17 Sodium Chloride Flush 0.9% 10 Ml Syringe IVP Not Given 0100,0900,1700 CRISTY Sodium Phosphate 250 mg 09/16/21 07:00 09/16/21 06:57 Neutra-Phos 250 Mg Tablet PO 09/16/21 09:01 250 mg Q2H CRISTY Administration Protocol - Lab Result Fish Bone Diagrams: 09/16/21 04:52 09/16/21 11:23 - Additional Planning My Orders: My Active Orders 09/16/21 07:58 Metoprolol Inj [Lopressor Inj] 5 mg IVP Q6HR PRN Subjective - Subjective Patient Reports: Other (Patient was resting comfortably in bed. She is alert and oriented x4. She denied any significant complaints. She reports not taking her medications for 4 years now since her primary care physician retired) Objective Vital Signs: Vital Signs - 24 hr 09/15/21 09/15/21 09/15/21 09:00 10:00 10:53 Temperature 37.6 C 36.5 C 36.2 C L Heart Rate [ 109 H 111 H 96 Monitoring electrodes] Respiratory 21 22 20 Rate Blood Pressure Blood Pressure [Left Brachial artery] Blood Pressure 160/81 H 161/96 H 153/96 H [Right Brachial artery] O2 Saturation 98 97 98 09/15/21 09/15/21 09/15/21 12:00 12:58 13:59 Temperature 36.5 C 36.6 C 36.7 C Heart Rate [ 107 H 104 H 103 H Monitoring electrodes] Respiratory 20 22 22 Rate Blood Pressure Blood Pressure 155/95 H 138/82 H 153/101 H [Left Brachial artery] Blood Pressure [Right Brachial artery] O2 Saturation 98 95 97 09/15/21 09/15/21 09/15/21 14:59 15:58 16:58 Temperature 36.9 C 36.9 C Heart Rate [ 102 H 103 H 97 Monitoring electrodes] Respiratory 20 15 21 Rate Blood Pressure Blood Pressure 157/105 H 171/104 H 164/112 H [Left Brachial artery] Blood Pressure [Right Brachial artery] O2 Saturation 97 99 96 09/15/21 09/15/21 09/15/21 18:00 18:49 19:00 Temperature 36.5 C Heart Rate [ 107 H 122 H Monitoring electrodes] Respiratory 28 H 26 H Rate Blood Pressure 170/108 H Blood Pressure [Left Brachial artery] Blood Pressure 170/108 H 158/95 H [Right Brachial artery] O2 Saturation 98 96 09/15/21 09/15/21 09/15/21 19:19 20:00 21:00 Temperature Heart Rate [ 122 H 121 H Monitoring electrodes] Respiratory 29 H 23 Rate Blood Pressure 158/95 H Blood Pressure [Left Brachial artery] Blood Pressure 151/104 H 169/99 H [Right Brachial artery] O2 Saturation 98 98 09/15/21 09/15/21 09/15/21 22:00 23:00 23:25 Temperature Heart Rate [ 120 H 102 H 100 Monitoring electrodes] Respiratory 21 19 17 Rate Blood Pressure Blood Pressure [Left Brachial artery] Blood Pressure 157/86 H 170/108 H 151/79 H [Right Brachial artery] O2 Saturation 95 95 09/16/21 09/16/21 09/16/21 00:00 01:00 02:00 Temperature 37.2 C Heart Rate [ 101 H 104 H 102 H Monitoring electrodes] Respiratory 18 22 20 Rate Blood Pressure Blood Pressure [Left Brachial artery] Blood Pressure 147/82 H 134/73 H 161/105 H [Right Brachial artery] O2 Saturation 93 97 09/16/21 09/16/21 09/16/21 02:58 04:00 05:00 Temperature Heart Rate [ 108 H 96 105 H Monitoring electrodes] Respiratory 22 19 21 Rate Blood Pressure Blood Pressure 137/99 H [Left Brachial artery] Blood Pressure 160/108 H 187/116 H [Right Brachial artery] O2 Saturation 94 98 96 09/16/21 09/16/21 06:00 06:59 Temperature Heart Rate [ 96 114 H Monitoring electrodes] Respiratory 19 24 Rate Blood Pressure Blood Pressure [Left Brachial artery] Blood Pressure 170/87 H 185/106 H [Right Brachial artery] O2 Saturation 97 98 Oxygen O2 Source Room air I&O (Last 24 Hrs): Intake and Output Totals x24h 09/14/21 09/15/21 09/16/21 23:59 23:59 23:59 Intake Total 3930 3837.916 300 Output Total 1600 6350 2250 Balance 2330 -4581.084 -3723 General: Alert, Oriented x3, No acute distress HEENT: Atraumatic, PERRLA, EOMI Neck: Supple, No JVD Neuro: Alert, Non Focal, Oriented Times 3 Cardiovascular: Other (sinus tachycardia) Respiratory: Chest non-tender, No respiratory distress, Breath sounds nml Abdomen: Normal bowel sounds (5), Soft, No tenderness Extremities: No clubbing, No edema, No tenderness/swelling Skin: No rashes, No breakdown, No significant lesion - Results Results: Laboratory Results WBC 7.8 x10^3/uL (4.8-10.8) 09/16/21 04:52 RBC 4.61 10^6/uL (4.20-5.40) 09/16/21 04:52 Hgb 13.1 g/dL (12.0-16.0) 09/16/21 04:52 Hct 39.6 % (37.0-47.0) 09/16/21 04:52 MCV 85.9 fL (81.0-99.0) 09/16/21 04:52 MCH 28.4 pg (27.0-31.0) 09/16/21 04:52 MCHC 33.1 g/dL (32.0-36.0) 09/16/21 04:52 RDW 13.3 % (12.0-15.0) 09/16/21 04:52 Plt Count 268 10^3/uL (130-450) 09/16/21 04:52 MPV 10.6 fL (7.9-10.8) 09/16/21 04:52 Neut # (Auto) 5.9 10^3/uL (1.5-6.6) 09/16/21 04:52 Lymph # (Auto) 1.0 10^3/uL (1.5-3.5) L 09/16/21 04:52 Mcduffie # (Auto) 0.5 10^3/uL (0.0-1.0) 09/16/21 04:52 Eos # (Auto) 0.2 10^3/uL (0.0-0.7) 09/16/21 04:52 Baso # (Auto) 0.0 10^3/uL (0.0-0.1) 09/16/21 04:52 Absolute Nucleated RBC 0.00 x10^3/uL 09/16/21 04:52 Nucleated RBC % 0.0 /100WBC 09/16/21 04:52 PT 12.2 secs (9.9-12.6) 09/13/21 14:35 INR 1.1 (0.8-1.2) 09/13/21 14:35 Sodium 137 mmol/L (135-145) 09/16/21 04:52 Potassium 3.8 mmol/L (3.5-5.0) 09/16/21 04:52 Chloride 106 mmol/L (101-111) 09/16/21 04:52 Carbon Dioxide 23 mmol/L (21-32) 09/16/21 04:52 Anion Gap 8.0 (6-13) 09/16/21 04:52 BUN 7 mg/dL (6-20) 09/16/21 04:52 Creatinine 0.7 mg/dL (0.4-1.0) 09/16/21 04:52 Estimated GFR (MDRD) 84 (>89) L 09/16/21 04:52 Glucose 117 mg/dL (70-100) H 09/16/21 04:52 POC Whole Bld Glucose 137 mg/dL (70 - 100) H 09/14/21 16:40 Estimat Average Glucose 117 mg/dL (70-100) H 09/14/21 05:30 Hemoglobin A1c % 5.7 % (4.27-6.07) 09/14/21 05:30 Calcium 8.6 mg/dL (8.5-10.3) 09/16/21 04:52 Phosphorus 2.0 mg/dL (2.5-4.6) L 09/16/21 04:52 Magnesium 2.1 mg/dL (1.7-2.8) 09/16/21 04:52 Total Bilirubin 1.0 mg/dL (0.2-1.0) 09/13/21 14:35 AST 14 IU/L (10-42) 09/13/21 14:35 ALT 15 IU/L (10-60) 09/13/21 14:35 Alkaline Phosphatase 71 IU/L (42-121) 09/13/21 14:35 Total Creatine Kinase 56 IU/L (22-269) 09/13/21 14:35 Troponin I High Sens 3.3 ng/L (2.3-14.8) 09/13/21 14:35 Total Protein 7.2 g/dL (6.7-8.2) 09/13/21 14:35 Albumin 4.3 g/dL (3.2-5.5) 09/13/21 14:35 Globulin 2.9 g/dL (2.1-4.2) 09/13/21 14:35 Albumin/Globulin Ratio 1.5 (1.0-2.2) 09/13/21 14:35 Triglycerides 86 mg/dL (-149) 09/14/21 05:30 Cholesterol 202 mg/dL (-199) H 09/14/21 05:30 LDL Cholesterol, Calc 141 mg/dL (-129) H 09/14/21 05:30 VLDL Cholesterol 17 mg/dL 09/14/21 05:30 HDL Cholesterol 44 mg/dL (60-) L 09/14/21 05:30 LDL/HDL Ratio 3.2 (<4.4) 09/14/21 05:30 Cholesterol/HDL Ratio 4.6 (<4.4) 09/14/21 05:30 Urine Color YELLOW 09/13/21 17:14 Urine Clarity CLEAR (CLEAR) 09/13/21 17:14 Urine pH 7.0 PH (5.0-7.5) 09/13/21 17:14 Ur Specific Reading 1.010 (1.002-1.030) 09/13/21 17:14 Urine Protein NEGATIVE mg/dL (NEGATIVE) 09/13/21 17:14 Urine Glucose (UA) NEGATIVE mg/dL (NEGATIVE) 09/13/21 17:14 Urine Ketones NEGATIVE mg/dL (NEGATIVE) 09/13/21 17:14 Urine Occult Blood NEGATIVE (NEGATIVE) 09/13/21 17:14 Urine Nitrite NEGATIVE (NEGATIVE) 09/13/21 17:14 Urine Bilirubin NEGATIVE (NEGATIVE) 09/13/21 17:14 Urine Urobilinogen 0.2 (NORMAL) E.U./dL (NORMAL) 09/13/21 17:14 Ur Leukocyte Esterase NEGATIVE (NEGATIVE) 09/13/21 17:14 Ur Microscopic Review NOT INDICATED 09/13/21 17:14 Urine Culture Comments NOT INDICATED 09/13/21 17:14 Nasal Adenovirus (PCR) NOT DETECTED 09/13/21 14:45 Nasal B. parapertussis DNA (PCR) NOT DETECTED 09/13/21 14:45 Nasal Coronavir 229E PCR NOT DETECTED 09/13/21 14:45 Nasal Coronavir HKU1 PCR NOT DETECTED 09/13/21 14:45 Nasal Coronavir NL63 PCR NOT DETECTED 09/13/21 14:45 Nasal Coronavir OC43 PCR NOT DETECTED 09/13/21 14:45 Nasal Enterovir/Rhinovir PCR NOT DETECTED 09/13/21 14:45 Nasal Influenza B PCR NOT DETECTED 09/13/21 14:45 Nasal Influenza A PCR NOT DETECTED 09/13/21 14:45 Nasal Parainfluen 1 PCR NOT DETECTED 09/13/21 14:45 Nasal Parainfluen 2 PCR NOT DETECTED 09/13/21 14:45 Nasal Parainfluen 3 PCR NOT DETECTED 09/13/21 14:45 Nasal Parainfluen 4 PCR NOT DETECTED 09/13/21 14:45 Nasal RSV (PCR) NOT DETECTED 09/13/21 14:45 Nasal Screen MRSA (PCR) NEGATIVE (NEGATIVE) 09/14/21 17:24 Nasal B.pertussis DNA PCR NOT DETECTED 09/13/21 14:45 Nasal C.pneumoniae (PCR) NOT DETECTED 09/13/21 14:45 Neel Human Metapneumo PCR NOT DETECTED 09/13/21 14:45 Nasal M.pneumoniae (PCR) NOT DETECTED 09/13/21 14:45 Nasal SARS-CoV-2 (PCR) NOT DETECTED 09/13/21 14:45 Urine Opiates Screen NEGATIVE (NEGATIVE) 09/13/21 17:14 Ur Oxycodone Screen NEGATIVE (NEGATIVE) 09/13/21 17:14 Urine Methadone Screen NEGATIVE (NEGATIVE) 09/13/21 17:14 Ur Propoxyphene Screen NEGATIVE (NEGATIVE) 09/13/21 17:14 Ur Barbiturates Screen NEGATIVE (NEGATIVE) 09/13/21 17:14 Ur Tricyclics Screen NEGATIVE (NEGATIVE) 09/13/21 17:14 Ur Phencyclidine Scrn NEGATIVE (NEGATIVE) 09/13/21 17:14 Ur Amphetamine Screen NEGATIVE (NEGATIVE) 09/13/21 17:14 U Methamphetamines Scrn NEGATIVE (NEGATIVE) 09/13/21 17:14 U Benzodiazepines Scrn NEGATIVE (NEGATIVE) 09/13/21 17:14 Urine Cocaine Screen NEGATIVE (NEGATIVE) 09/13/21 17:14 U Cannabinoids Screen NEGATIVE (NEGATIVE) 09/13/21 17:14 Ethyl Alcohol < 5.0 mg/dL 09/13/21 14:35 - Procedures Procedures: Procedures COLONOSCOPY (04/12/13)
[2021-09-16] MEDS: DEXTROSE 5%-0.45% NACL 1,000 ML IV SCH ×2 (08:29→20:39)
[2021-09-16] MEDS: CLOPIDOGREL 75 MG TABLET PO SCH (10:17)
[2021-09-16] MEDS: LOSARTAN 50 MG TABLET PO SCH (10:17)
[2021-09-16] MEDS: ASPIRIN CHEW 81 MG TABLET PO SCH (10:17)
[2021-09-16] MEDS: ENOXAPARIN 40 MG/0.4 ML SYRINGE SUBQ SCH (10:18)
[2021-09-16] MEDS: levETIRAcetam 250 MG TABLET PO SCH ×2 (10:18→20:53)
[2021-09-16] MEDS: hydrALAZINE INJ 20 MG/ML VIAL IVP PRN ×2 (10:56→17:23)
[2021-09-16] MEDS: ACETAMINOPHEN 325 MG TABLET PO PRN ×2 (10:56→17:24)
[2021-09-16 11:37] LABS: CALCIUM 8.8 mg/dL (8.5-10.3); CREATININE 0.7 mg/dL (0.4-1.0); POTASSIUM 3.5 mmol/L (3.5-5.0)
[2021-09-16] MEDS ORDERED: LORazepam 2 MG/ML VIAL IVP PRN (12:06)
--- NOTE | 2021-09-16 16:22 | MRI Report ---
PROCEDURE: Brain W/O INDICATIONS: seizures TECHNIQUE: Noncontrast axial T1 spin echo, axial T2 fast spin echo, sagittal and axial FLAIR, coronal T2 fast sp in echo, axial gradient echo, axial diffusion and ADC through the brain. COMPARISON: None. FINDINGS: Image quality: Degraded by patient motion artifact. CSF Spaces: Basal cisterns are patent. No extra-axial fluid collections. Ventricles are normal in size and shape. Brain: No intracranial masses or hemorrhage. Weiner/white matter interface is normal. There is mild, diffuse cerebral volume loss. There are mild periventricular and subcortical white matter chronic mi crovascular ischemic changes. Brainstem appears normal. Diffusion-weighted images demonstrate no acu te ischemic insult. No chronic ischemic insults. Normal intravascular flow voids are present. Skull and face: Calvarium has normal marrow signal. Orbits appear normal. Sinuses: Sinuses and mastoids are clear. IMPRESSION: 1. Image quality degraded by patient motion artifact. 2. No acute intracranial disease process. 3. No gross intracranial mass or mass effect. 4. No areas of acute or chronic infarction. 5. No gross intracranial hemorrhage. 6. Mild, diffuse cerebral volume loss. 7. Mild periventricular and subcortical white matter chronic microvascular ischemic change. Reviewed by: Tia Montejo MD, PhD on 09/16/2021 4:21 PM PDT Approved by: Tia Montejo MD, PhD on 09/16/2021 4:21 PM PDT Station ID: [id number]
[2021-09-16] MEDS: oxyCODONE 5 MG TABLET PO PRN (19:49)
[2021-09-16] MEDS: ATORVASTATIN 40 MG TABLET PO SCH (20:53)
[2021-09-16] MEDS ORDERED: METOPROLOL SUCCINATE 25 MG TABLET PO SCH (21:00)
[2021-09-17] MEDS: SODIUM CHLORIDE FLUSH 0.9% 10 ML SYRINGE IVP SCH ×2 (00:14→10:44)
[2021-09-17] MEDS: DEXTROSE 5%-0.45% NACL 1,000 ML IV SCH ×2 (00:18→12:30)
[2021-09-17] MEDS: hydrALAZINE INJ 20 MG/ML VIAL IVP PRN (04:44)
[2021-09-17 05:48] LABS: BASOPHILS % (AUTO) 0.5 %; EOSINOPHILS # (AUTO) 0.3 10^3/uL (0.0-0.7); EOSINOPHILS % (AUTO) 3.4 %; HCT - HEMATOCRIT 38.8 % (37.0-47.0); HGB - HEMOGLOBIN 12.9 g/dL (12.0-16.0); LYMPHOCYTES # (AUTO) 1.7 10^3/uL (1.5-3.5); LYMPHOCYTES % (AUTO) 20.9 %; MEAN CORPUSCULAR HEMOGLOBIN 28.9 pg (27.0-31.0); MEAN CORPUSCULAR HGB CONC 33.2 g/dL (32.0-36.0); MEAN CORPUSCULAR VOLUME 86.8 fL (81.0-99.0); MEAN PLATELET VOLUME 11.1 fL (7.9-10.8); MONOCYTES # (AUTO) 0.6 10^3/uL (0.0-1.0); MONOCYTES % (AUTO) 7.3 %; NEUTROPHILS # (AUTO) 5.5 10^3/uL (1.5-6.6); NEUTROPHILS % (AUTO) 67.3 %; PLT - PLATELET COUNT 294 10^3/uL (130-450); RED BLOOD COUNT 4.47 10^6/uL (4.20-5.40); RED CELL DISTRIBUTION WIDTH 13.9 % (12.0-15.0); WHITE BLOOD COUNT 8.2 x10^3/uL (4.8-10.8)
[2021-09-17 06:02] LABS: CALCIUM 8.9 mg/dL (8.5-10.3); CREATININE 0.6 mg/dL (0.4-1.0); MAGNESIUM 1.9 mg/dL (1.7-2.8); POTASSIUM 3.2 mmol/L (3.5-5.0)
[2021-09-17] MEDS: ENOXAPARIN 40 MG/0.4 ML SYRINGE SUBQ SCH (08:37)
[2021-09-17] MEDS: ACETAMINOPHEN 325 MG TABLET PO PRN ×2 (08:38→12:30)
[2021-09-17] MEDS: LOSARTAN 50 MG TABLET PO SCH (08:39)
[2021-09-17] MEDS: levETIRAcetam 250 MG TABLET PO SCH (08:39)
[2021-09-17] MEDS: POTASSIUM CHLORIDE 20 MEQ TABLET PO SCH ×2 (08:39→12:30)
[2021-09-17] MEDS: ASPIRIN CHEW 81 MG TABLET PO SCH (08:39)
[2021-09-17] MEDS ORDERED: METOPROLOL SUCCINATE 25 MG TABLET PO SCH (09:00)
[2021-09-17] MEDS ORDERED: polyethylene glycoL 3350 17 GM PACKET PO SCH (09:00)
--- NOTE | 2021-09-17 12:15 | DISCHARGE SUMMARY ---
Discharge Summary Admit Date: 09/13/21 Discharge Date: 09/17/21 Discharging Provider: Alton Beatty Code Status: Attempt Resuscitation Condition at Discharge: Stable Discharge Disposition: 01 Home, Self Care - DIAGNOSES Admission Diagnoses: TIA Hypertension Discharge Diagnoses with Status of Each Condition: Seizure: Patient has history of seizures. Has not been on medications since primary care physician retired. Keppra 500 p.o. twice daily ordered TIA: Acute. Resolved. Work-up unremarkable. Hypertension: Chronic. Patient prescribed metoprolol succinate and losartan Hyponatremia: Acute. Resolved Leukocytosis: Acute. Likely reactive. Resolved - HPI History of Present Illness: Per HPI: This is a 65-year-old female with a past medical history significant for hypertension who presents today due to difficulty speaking. She believes she had an episode yesterday that reoccurred this morning and so she was brought to the emergency department. While in the emergency department, she had another episode. She is not sure how long the episode lasted for this morning but believes the one in the emergency department was just for a few minutes. She reports her only symptom was difficulty speaking. She denied any weakness in her upper or lower extremities. Denies any headaches, change in vision, d izziness, lightheadedness. She does report a bit of nasal congestion which she attributes to allergic rhinitis. She does not take aspirin on a regular basis but does take it every once in a while for chronic right shoulder pain. She states she does have a history of hypertension but does not take any medications. She has not seen a physician in nearly 10 years since her previous physician retired. She currently feels back to baseline. She does not think she had a stroke but believes this may be a TIA. She states that she lives alone. Denies any drug use. Reports occasional alcohol use. In the emergency department, she is noted to be hypertensive. She another episode of expressive and receptive aphasia and so a telestroke was called. She was offered alteplase but the patient declined this. CT head showed no hemorrhage. CT of the head and neck showed no significant stenosis or occlusion. Neurology recommended continuing her on aspirin and Plavix. Given the above findings, the patient will be admitted for further management. We did discuss goals of care and she would like to be a full code. Patient had 4 episodes of grand mal seizures on 09/14/2021. As a result she was transferred to the ICU for further management. She was administered Ativan. She has history of seizures but has not been taking any antiepileptic medication since 2016 when her primary care physician retired. She has not asked outpatient care with any other physician. She was started on Keppra 500 mg twice daily. Work up in the ED included a CT and CT angio of the head and neck which were u nremarkable. She underwent an MRI of the brain which was negative for any acute intracranial findings. She had persistently high blood pressures for which she was treated with hydralazine IV as needed, metoprolol IV as needed, metoprolol succinate p.o. daily and losartan p.o. daily. She was discharged with metoprolol succinate and losartan. By the day of discharge she was back to her baseline mental function which was A&O x4. She is able to relay her medical history with no difficulties. She had no neurologic deficits. She was also prescribed Keppra 500 mg p.o. twice daily, atorvastatin 40 mg p.o. every afternoon and a baby aspirin daily upon discharge. - ALLERGIES Allergies/Adverse Reactions: Allergies Allergy/AdvReac Type Severity Reaction Status Date / Time No Known Drug Allergies Allergy Verified 09/13/21 14:17 - MEDICATIONS Home Medications: Ambulatory Orders Medication Instructions Recorded Confirmed Acetaminophen [Tylenol] 325 - 650 mg PO Q6H PRN 09/14/21 09/14/21 Aspirin Chewable [[place] 81 mg PO DAILY tablet 09/17/21 Aspirin] Atorvastatin [Lipitor] 40 mg PO QPM 30 Days #30 tablet 09/17/21 Losartan [Cozaar] 50 mg PO DAILY #30 tablet 09/17/21 Metoprolol Succinate [Toprol Xl] 50 mg PO DAILY 30 Days #60 tablet 09/17/21 levETIRAcetam [Keppra] 500 mg PO BID 30 Days #120 tablet 09/17/21 - PHYSICAL EXAM AT DISCHARGE General Appearance: positive: No acute distress, Alert Eyes Bilateral: positive: PERRL, EOMI ENT: positive: No signs of dehydration Neck: positive: No JVD, Trachea midline Respiratory: positive: Chest non-tender, No respiratory distress, Breath sounds nml. negative: Wheezes, Rales, Rhonchi Cardiovascular: positive: No murmur, Tachycardia (mild) Abdomen: positive: Non-tender, No organomegaly, Nml bowel sounds, No distention. negative: Guarding, Rebound Back: positive: Nml inspection Skin: positive: Color nml, No rash, Warm, Dry Neurologic/Psychiatric: positive: Oriented x3, Mood/affect nml - LABS Result Diagrams: 09/17/21 04:48 09/17/21 04:48 - TIME SPENT Time Spent in Discharge (Minutes): 25
--- NOTE | 2021-09-17 12:17 | Discharge Plan ---
Discharge Plan Problem Reviewed?: Yes Disposition: Home, Self Care Condition: Stable Prescriptions: Losartan [Cozaar] 50 mg PO DAILY #30 tablet levETIRAcetam [Keppra] 500 mg PO BID 30 Days #120 tablet Atorvastatin [Lipitor] 40 mg PO QPM 30 Days #30 tablet Metoprolol Succinate [Toprol Xl] 50 mg PO DAILY 30 Days #60 tablet Diet: Cardiac Activity Restrictions: Activity as Tolerated Health Concerns: You presented on 09/13/2021 with difficulty speaking. You were admitted for further work-up to rule out stroke. In the cause of work-up/treatment you experienced 4 episodes of grand mal seizures and were transferred to the ICU. You required administration of Ativan. You were started on Keppra 500 mg twice daily. Work-up for stroke and seizure included an MRI of the brain without contrast. This was on remarkable for any acute findings. Your blood pressure which had been significantly elevated was managed with a combination of losartan, metoprolol and hydralazine. You will be discharged home with a prescription of metoprolol succinate 50 mg p.o. daily and losartan. By 09/16/2021 you are back to your baseline. You were able to communicate without any difficulties. You are able to relay your previous history. You mentioned that you have not seen a physician since 2017 when your previous physician retired. Attempts have been made/referral was made to a primary care provider in [place]. You have been advised to follow-up with the primary care physician to establish care. You will also need a referral to neurology regarding your seizures. In the meantime you will be discharged with Keppra 500 mg p.o. twice daily. You are to continue taking atorvastatin and a baby aspirin daily. The above plan was explained to you, you expressed understanding and agreeable with the plan. No Smoking: If you smoke, Please STOP! Call for help.
[2021-09-17] MEDS ORDERED: METOPROLOL 5 MG/5 ML VIAL IVP STA (12:45)
[2021-09-17 14:02] VITALS: BP 160/106
== END 2021-09-17 15:00 | disposition home or self-care (01) | DRG 69 ==
LOC: EDUNIT# → ED 14:07 → MS3 16:57 → OBSVTOIN 09-14 17:00 → ICU 09-14 18:07
PROVIDERS: ADMIT Internal Medicine; ATTEND Internal Medicine
DX: G45.9 Transient cerebral ischemic attack, unspecified (principal); E87.1 Hypo-osmolality and hyponatremia; Z20.822 Contact with and (suspected) exposure to COVID-19; I10 Essential (primary) hypertension; G40.909 Epilepsy, unspecified, not intractable, without status epilepticus; Z79.82 Long term (current) use of aspirin; D72.829 Elevated white blood cell count, unspecified; R09.81 Nasal congestion; R41.82 Altered mental status, unspecified
CPT/HCPCS: 36415; 70450; 70496; 70498; 70551; 80048; 80053; 80061; 80306; 81003; 82550; 83036; 83735; 84100; 84132; 84484; 85025; 85610; 87150; 87631; 93005; 96372; 96374; 96375; 99281; 99285; A9270; G0378; G0480; J1650; J2060; Q9967; 0202U; 80320; 81001; 83721; 87086

== ENCOUNTER 2022-01-08 16:17 | Outpatient (CLI) | payer MEDICARE, MEDICAID | END 2022-01-08 16:18 | disposition critical access hospital (66) | LOC: EMS 16:17 | DX: R41.0 Disorientation, unspecified (principal) | CPT/HCPCS: A0425; A0429 ==

== ENCOUNTER 2022-01-08 16:50 | Emergency (ER) | payer MEDICARE, MEDICAID ==
[2022-01-08] MEDS ORDERED: SODIUM CHLORIDE 0.9% 1,000 ML IV STA (16:56)
--- NOTE | 2022-01-08 16:57 | ED Physician Documentation ---
History of Present Illness - Stated complaint Stated Complaint: GLF/HEAD INJURY - History obtained from History obtained from: Patient, EMS - Additonal information Additional information: Patient is brought to the emergency department by EMS after being found down in [place]. She was laying on the ground and appeared to been drooling. Nobody saw her fall, though bystanders did notice sonorous respirations prior to EMS arriving. The patient at this point is alert and talking but does not remember the incident. She denies having any chest pain or shortness of breath today. No nausea or vomiting. Review of the patient's records reveals that she was seen in August for what was thought to be TIAs, but ultimately had a negative work-up with CT, CTA, and MRI of the brain. However, she was found to have several grand mal seizures the next day and it was discovered that she had a history of seizure disorder, but had been off her medication since her primary care physician retired several years ago. The patient was discharged from that admission on Keppra 500 mg twice daily, but did not continue this medication, because she states she does not have a new primary care physician and does not have a ride to the pharmacy. Patient lives in low income housing in [place]. The patient suspects she probably had a seizure but she is not sure. She denies illness recently. No other complaints at this time. Review of Systems Ten Systems: 10 systems reviewed and negative Constitutional: reports: Reviewed and negative Eyes: reports: Reviewed and negative Ears: reports: Reviewed and negative Nose: reports: Reviewed and negative Throat: reports: Reviewed and negative Cardiac: reports: Reviewed and negative Respiratory: reports: Reviewed and negative GI: reports: Reviewed and negative : reports: Reviewed and negative Skin: reports: Reviewed and negative Musculoskeletal: reports: Reviewed and negative Neurologic: reports: Syncope, LOC Psychiatric: reports: Reviewed and negative Endocrine: reports: Reviewed and negative Immunocompromised: reports: Reviewed and negative PD PAST MEDICAL HISTORY - Past Medical History Cardiovascular: Hypertension Respiratory: Asthma Endocrine/Autoimmune: None GI: None : None HEENT: None Psych: None Derm: None - Past Surgical History Ortho: Shoulder arthroplasty /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 HEENT: Tonsil/Adenoidectomy - Present Medications Home Medications: Ambulatory Orders Medication Instructions Recorded Confirmed Acetaminophen [Tylenol] 325 - 650 mg PO Q6H PRN 09/14/21 09/14/21 Aspirin Chewable [St Gigi 81 mg PO DAILY tablet 09/17/21 Aspirin] Atorvastatin [Lipitor] 40 mg PO QPM 30 Days #30 tablet 09/17/21 Losartan [Cozaar] 50 mg PO DAILY #30 tablet 09/17/21 Metoprolol Succinate [Toprol Xl] 50 mg PO DAILY 30 Days #60 tablet 09/17/21 levETIRAcetam [Keppra] 500 mg PO BID 30 Days #120 tablet 09/17/21 Levetiracetam [Keppra] 500 mg PO BID #60 tablet 01/08/22 - Allergies Allergies/Adverse Reactions: Allergies Allergy/AdvReac Type Severity Reaction Status Date / Time No Known Drug Allergies Allergy Verified 01/08/22 17:01 - Social History Does the pt smoke?: No Smoking Status: Never smoker PD ED PE NORMAL - Vitals Vital signs reviewed: Yes - General General: Alert and oriented X 3, No acute distress, Well developed/nourished - HEENT HEENT: Atraumatic, PERRL, EOMI, Moist mucous membranes - Neck Neck: Supple, no meningeal sign - Cardiac Cardiac: RRR, No murmur, Strong equal pulses - Respiratory Respiratory: No respiratory distress, Clear bilaterally - Abdomen Abdomen: Soft, Non tender, Non distended - Derm Derm: Normal color, Warm and dry, No rash - Extremities Extremities: No deformity, No edema, No calf tenderness / cord - Neuro Neuro: Alert and oriented X 3, integrated circuit layout designer 2-12 intact, No motor deficit, No sensory deficit, Normal speech - Psych Psych: Normal mood, Normal affect Results - Vitals Vitals: Vital Signs - 24 hr 01/08/22 01/08/22 01/08/22 16:57 17:01 18:52 Temperature 37.1 C 37.1 C Heart Rate 100 100 90 Respiratory 18 18 18 Rate Blood Pressure 139/100 H 139/100 H 132/80 H O2 Saturation 99 99 99 Oxygen O2 Source Room air - Labs Labs: Laboratory Tests 01/08/22 01/08/22 01/08/22 16:52 16:52 16:52 WBC 7.4 RBC 4.83 Hgb 14.3 Hct 43.5 MCV 90.1 MCH 29.6 MCHC 32.9 RDW 12.3 Plt Count 308 MPV 10.8 Neut # (Auto) 5.6 Lymph # (Auto) 1.3 L [place] # (Auto) 0.3 Eos # (Auto) 0.1 Baso # (Auto) 0.0 Absolute Nucleated RBC 0.00 Nucleated RBC % 0.0 Sodium 133 L Potassium 4.3 Chloride 98 L Carbon Dioxide 25 Anion Gap 10.0 BUN 13 Creatinine 0.9 Estimated GFR (MDRD) 63 L Glucose 117 H Calcium 9.3 Total Bilirubin 0.4 AST 19 ALT 18 Alkaline Phosphatase 77 Total Protein 7.1 Albumin 4.0 Globulin 3.1 Albumin/Globulin Ratio 1.3 Lipase 57 H TSH 5.44 Ethyl Alcohol < 5.0 - Rads (name of study) CT head Radiology: Final report received, EMP read indepedently, See rad report (Return NAD) PD MEDICAL DECISION MAKING - ED course Complexity details: reviewed old records, reviewed results, re-evaluated patient, considered differential, d/w patient ED course: The patient was worked up with CT Of the head and laboratory studies, all of which were unremarkable. I have given the patient doses of Keppra and Ativan in the emergency department. She has not had any seizure activity here. The social studies department chair has provided information sheets for the pt on free medical transportation and other senior assistance, so that pt can get to the pharmacy to get her meds, and to any appointments with her PCP. I have given the pt a prescription for Keppra, as well as contact information for the [facility] so she can establish primary care. She has been sent home via cab and voucher. Departure - Departure Disposition: 01 Home, Self Care Clinical Impression: Seizure Condition: Stable Instructions: ED Seizure Recurrent Follow-Up: NIRAV BAILEY DO [Physician No Access] - Prescriptions: Levetiracetam [Keppra] 500 mg PO BID #60 tablet Comments: Please refer to the resources you have been given to help get you to the pharmacy and doctor appointments. You may call the [employer] or the Medicare Medicaid resource number to help with this. It is very important that you stay on your seizure medications, otherwise you will likely continue to have breakthrough seizures and you will be at risk for injury. You have been restarted on your seizure medication tonight. Please call the doctor's office number provided to set up an appointment to establish primary care with a new doctor. Please do this as soon as possible. Discharge Date/Time: 01/08/22 18:57
[2022-01-08 17:02] LABS: BASOPHILS % (AUTO) 0.4 %; EOSINOPHILS # (AUTO) 0.1 10^3/uL (0.0-0.7); HCT - HEMATOCRIT 43.5 % (37.0-47.0); HGB - HEMOGLOBIN 14.3 g/dL (12.0-16.0); LYMPHOCYTES # (AUTO) 1.3 10^3/uL (1.5-3.5); MEAN CORPUSCULAR HEMOGLOBIN 29.6 pg (27.0-31.0); MEAN CORPUSCULAR HGB CONC 32.9 g/dL (32.0-36.0); MEAN CORPUSCULAR VOLUME 90.1 fL (81.0-99.0); MEAN PLATELET VOLUME 10.8 fL (7.9-10.8); MONOCYTES # (AUTO) 0.3 10^3/uL (0.0-1.0); MONOCYTES % (AUTO) 4.6 %; NEUTROPHILS # (AUTO) 5.6 10^3/uL (1.5-6.6); NEUTROPHILS % (AUTO) 76.6 %; PLT - PLATELET COUNT 308 10^3/uL (130-450); RED BLOOD COUNT 4.83 10^6/uL (4.20-5.40); RED CELL DISTRIBUTION WIDTH 12.3 % (12.0-15.0); WHITE BLOOD COUNT 7.4 x10^3/uL (4.8-10.8)
[2022-01-08] MEDS ORDERED: LORazepam 1 MG TABLET PO STA (17:09)
[2022-01-08] MEDS ORDERED: levETIRAcetam 250 MG TABLET PO STA (17:09)
[2022-01-08 17:13] LABS: ALBUMIN/GLOBULIN RATIO 1.3 (1.0-2.2); ALKALINE PHOSPHATASE 77 IU/L (42-121); ALT ALANINE AMINOTRANSFERASE 18 IU/L (10-60); AST ASPARTATE AMINOTRANSFERASE 19 IU/L (10-42); BILIRUBIN,TOTAL 0.4 mg/dL (0.2-1.0); BUN - BLOOD UREA NITROGEN 13 mg/dL (6-20); CALCIUM 9.3 mg/dL (8.5-10.3); CARBON DIOXIDE - CO2 25 mmol/L (21-32); CHLORIDE 98 mmol/L (101-111); CREATININE 0.9 mg/dL (0.4-1.0); ETOH - ETHANOL < 5.0 mg/dL; GFR - MDRD 63 (>89); GLUCOSE 117 mg/dL (70-100); LIPASE 57 U/L (22-51); POTASSIUM 4.3 mmol/L (3.5-5.0); SODIUM 133 mmol/L (135-145); TOTAL PROTEIN 7.1 g/dL (6.7-8.2)
--- NOTE | 2022-01-08 17:58 | CT Report ---
PROCEDURE: HEAD WO INDICATIONS: fall/loc TECHNIQUE: Noncontrast 4.5 mm thick angled axial sections acquired from the foramen magnum to the vertex. For r adiation dose reduction, the following was used: automated exposure control, adjustment of mA and/or kV according to patient size. COMPARISON: Head CT 09/14/2021. FINDINGS: Image quality: Excellent. CSF spaces: Basal cisterns are patent. No extra-axial fluid collections. Ventricles are normal in size and shape. Brain: No midline shift. No intracranial masses or hemorrhage. Weiner-white matter interface is with in normal limits. Skull and face: Calvarium and visualized facial bones are intact, without suspicious lesions. Sinuses: Visualized sinuses and mastoids are clear. IMPRESSION: No acute intracranial abnormality. Reviewed by: Braulio Casillas MD on 01/08/2022 5:57 PM PST Approved by: Braulio Casillas MD on 01/08/2022 5:57 PM PST Station ID: [id number]
[2022-01-08 18:57] VITALS: BP 132/80
== END 2022-01-08 18:57 | disposition home or self-care (01) ==
LOC: EDUNIT# → ED 16:50
DX: R56.9 Unspecified convulsions (principal); I10 Essential (primary) hypertension
CPT/HCPCS: 36415; 70450; 80053; 83690; 84443; 85025; 99283; 99284; A9270; G0480; J8499; 80320

== ENCOUNTER 2023-09-02 15:20 | Outpatient (CLI) | payer MEDICARE, MEDICAID | END 2023-09-02 23:59 | disposition critical access hospital (66) | LOC: EMS 15:20 | DX: R29.810 Facial weakness (principal); R47.1 Dysarthria and anarthria; R53.83 Other fatigue | CPT/HCPCS: A0425; A0429 ==

== ENCOUNTER 2023-09-02 15:55 | Emergency (ER) | payer MEDICARE, MEDICAID ==
[2023-09-02 16:28] LABS: BASOPHILS % (AUTO) 0.4 %; EOSINOPHILS # (AUTO) 0.1 10^3/uL (0.0-0.7); EOSINOPHILS % (AUTO) 0.7 %; HCT - HEMATOCRIT 44.7 % (37.0-47.0); HGB - HEMOGLOBIN 14.7 g/dL (12.0-16.0); LYMPHOCYTES # (AUTO) 1.2 10^3/uL (1.5-3.5); LYMPHOCYTES % (AUTO) 17.1 %; MEAN CORPUSCULAR HEMOGLOBIN 29.6 pg (27.0-31.0); MEAN CORPUSCULAR HGB CONC 32.9 g/dL (32.0-36.0); MEAN CORPUSCULAR VOLUME 89.9 fL (81.0-99.0); MEAN PLATELET VOLUME 10.4 fL (7.9-10.8); MONOCYTES # (AUTO) 0.3 10^3/uL (0.0-1.0); MONOCYTES % (AUTO) 4.7 %; NEUTROPHILS # (AUTO) 5.6 10^3/uL (1.5-6.6); NEUTROPHILS % (AUTO) 76.8 %; PLT - PLATELET COUNT 285 10^3/uL (130-450); RED BLOOD COUNT 4.97 10^6/uL (4.20-5.40); RED CELL DISTRIBUTION WIDTH 12.7 % (12.0-15.0); WHITE BLOOD COUNT 7.2 x10^3/uL (4.8-10.8)
[2023-09-02 16:37] LABS: PARTIAL THROMBOPLASTIN TIME 54.5 secs (24.9-33.3)
[2023-09-02 16:41] LABS: ALBUMIN 4.1 g/dL (3.2-5.5); ALBUMIN/GLOBULIN RATIO 1.4 (1.0-2.2); ALKALINE PHOSPHATASE 78 IU/L (42-121); ALT ALANINE AMINOTRANSFERASE 14 IU/L (10-60); AST ASPARTATE AMINOTRANSFERASE 16 IU/L (10-42); BILIRUBIN,TOTAL 0.7 mg/dL (0.2-1.0); BUN - BLOOD UREA NITROGEN 10 mg/dL (6-20); CALCIUM 9.8 mg/dL (8.5-10.3); CARBON DIOXIDE - CO2 28 mmol/L (21-32); CHLORIDE 101 mmol/L (101-111); CREATININE 0.8 mg/dL (0.6-1.3); ETOH - ETHANOL < 10.0 mg/dL; GFR - MDRD 72 (>89); GLUCOSE 97 mg/dL (74-104); LIPASE 34 U/L (11-82); SODIUM 135 mmol/L (135-145)
[2023-09-02 16:42] LABS: INR 1.2 (0.8-1.2); PT - PROTHROMBIN TIME 12.4 secs (9.9-12.6)
--- NOTE | 2023-09-02 16:59 | ED Physician Documentation ---
PD HPI FOCAL NEURO - Stated complaint Stated Complaint: FACIAL DROOP - Chief complaint Chief Complaint: Neuro - History obtained from History obtained from: Patient - History of Present Illness Timing - duration: Minutes (5) Timing - details: Abrupt onset Severity of deficit: Mild Weakness: No: Arm, Hand, Leg, Foot, Right, Left, Other Numbness: No: Face, Arm, Hand, Leg, Foot, Right, Left Contributing factors: negative: Anticoagulated, Vascular dz, Atrial fibrillation, Prosthetic heart valve Baseline status: positive: A&OX3, ambulatory, indep - Additional information Additional information: Patient is a 67-year-old female who presents to the emergency department stating that she was having lunch with friends today and they noticed a right-sided facial droop. She states that she no longer has any facial droop and she feels normal. She states she does not know why she is here and wants to go home to take care of her dog. No fevers. No chills. No headache. No no numbness of the face or extremities. No other weakness. EMS states that the friends stated this lasted about 5 minutes. Patient states she does not take any medications at home. Patient states she did have a few glasses of wine today. Patient denies any similar symptoms previously. 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 HEENT: Tonsil/Adenoidectomy - Present Medications Home Medications: Ambulatory Orders Medication Instructions Recorded Confirmed Acetaminophen [Tylenol] 325 - 650 mg PO Q6H PRN 09/14/21 09/14/21 Aspirin Chewable [St Gigi 81 mg PO DAILY tablet 09/17/21 Aspirin] Atorvastatin [Lipitor] 40 mg PO QPM 30 Days #30 tablet 09/17/21 Losartan [Cozaar] 50 mg PO DAILY #30 tablet 09/17/21 Metoprolol Succinate [Toprol Xl] 50 mg PO DAILY 30 Days #60 tablet 09/17/21 levETIRAcetam [Keppra] 500 mg PO BID 30 Days #120 tablet 09/17/21 Levetiracetam [Keppra] 500 mg PO BID #60 tablet 01/08/22 Aspirin [Aspirin EC] 81 mg PO DAILY #30 tab 09/02/23 Clopidogrel [Plavix] 75 mg PO DAILY #30 tablet 09/02/23 - Allergies Allergies/Adverse Reactions: Allergies Allergy/AdvReac Type Severity Reaction Status Date / Time No Known Drug Allergies Allergy Verified 01/08/22 17:01 - Social History Does the pt smoke?: No Smoking Status: Never smoker PD ED PE NORMAL - Vitals Vital signs reviewed: Yes - General General: Alert and oriented X 3, No acute distress - HEENT HEENT: Atraumatic, PERRL, EOMI, Ears normal, Moist mucous membranes, Pharynx benign - Neck Neck: Supple, no meningeal sign, No bony TTP - Cardiac Cardiac: RRR, No murmur, Strong equal pulses - Respiratory Respiratory: No respiratory distress, Clear bilaterally - Abdomen Abdomen: Soft, Non tender, Non distended - Back Back: No spinal TTP - Derm Derm: Warm and dry - Extremities Extremities: No edema, No calf tenderness / cord - Neuro Neuro: Alert and oriented X 3, president and chief operating officer 2-12 intact, No motor deficit, No sensory deficit, Normal speech Eye Opening: Spontaneous Motor: Obeys Commands Verbal: Oriented GCS Score: 15 - Psych Psych: Normal mood, Normal affect NIHSS - Time Time: 16:10 - Level of Consciousness Level of consciousness: (0) Alert, Keenly responsive LOC Questions: (0) Answers both Q's correct LOC Commands: (0) Performs both correctly - Gaze Best Gaze: (0) Normal - Visual Visual: (0) No loss - Facial Palsy Facial Palsy: (0) Normal, symmetrical movement - Motor Arms (both separate) Motor Arm (right): (0) No drift Motor Arm (left): (0) No drift - Motor Legs (both separate) Motor Leg (right): (0) No drift Motor Leg (left): (0) No drift - Limb Ataxia Limb Ataxia: (0) Absent - Sensory Sensory: (0) Normal - Best Language Best Language: (0) No aphasia - Dysarthria Dysarthria: (0) Normal - Extinction and Inattention (formally neg Extinction and inattention: (0) No abnormality - Total Score/Results Total Score/Result: 0 Results - Vitals Vitals: Vital Signs - 24 hr 09/02/23 16:02 Temperature 36.7 C Heart Rate 94 Respiratory 18 Rate Blood Pressure 180/122 H O2 Saturation 96 Oxygen O2 Source Room air - EKG (time done) 1651 EKG releavant findings:: EKG personally interpreted by author of this note. Relevant findings are: Rate: Rate (enter#) (90) Rhythm: NSR [place]: Normal Intervals: Normal DE QRS: Normal Ischemia: Normal ST segments - Labs Labs: Laboratory Tests 09/02/23 09/02/23 09/02/23 16:23 16:23 16:23 WBC 7.2 RBC 4.97 Hgb 14.7 Hct 44.7 MCV 89.9 MCH 29.6 MCHC 32.9 RDW 12.7 Plt Count 285 MPV 10.4 Neut # (Auto) 5.6 Lymph # (Auto) 1.2 L [place] # (Auto) 0.3 Eos # (Auto) 0.1 Baso # (Auto) 0.0 Absolute Nucleated RBC 0.00 Nucleated RBC % 0.0 PT 12.4 INR 1.2 APTT 54.5 H Sodium 135 Potassium 4.0 Chloride 101 Carbon Dioxide 28 Anion Gap 6.0 BUN 10 Creatinine 0.8 Estimated GFR (MDRD) 72 L Glucose 97 Calcium 9.8 Total Bilirubin 0.7 AST 16 ALT 14 Alkaline Phosphatase 78 Total Protein 7.0 Albumin 4.1 Globulin 2.9 Albumin/Globulin Ratio 1.4 Lipase 34 Ethyl Alcohol < 10.0 - Rads (name of study) CT head Relevant Findings:: Final report received, See rad report CT angio head/neck Relevant Findings:: Final report received, See rad report brain MRI Relevant Findings:: Final report received, See rad report PD Medical Decision Making - ED course Complexity details: reviewed results, re-evaluated patient, considered differential, d/w patient, d/w mgmt consultant ED course: 67-year-old female with approximately 5 minutes of facial droop today with her friends. Resolved. Patient is asymptomatic. Symptoms consistent with TIA. No significant lab abnormalities. No acute findings on MRI. There is a high grade stenosis in the P2 segment of the CLINICAL SPECIALIST VASCULAR on angiogram, discussed the case with neurology at [facility], they recommend aspirin and Plavix. There is no therapeutic intervention for the P2 segment stenosis. Patient was given aspirin and Plavix here. We will start this for home. Patient is fully asymptomatic here. Ambulating without difficulty. She will follow-up with her PCP for further care. Patient counseled regarding signs and symptoms for which I believe and urgent re-evaluation would be necessary. Patient with good understanding of and agreement to plan and is comfortable going home at this time This document was made in part using voice recognition software. While efforts are made to proofread this document, sound alike and grammatical errors may occur. Departure - Departure Disposition: Home, Self Care Clinical Impression: TIA (transient ischemic attack) Condition: Good Instructions: ED Transient Ischemic Attack Follow-Up: your,doctor in 1 week [Other] Prescriptions: Aspirin [Aspirin EC] 81 mg PO DAILY #30 tab Clopidogrel [Plavix] 75 mg PO DAILY #30 tablet Comments: Your prescriptions were sent to [facility] in [place]. Your symptoms are consistent with a transient ischemic attack or "mini stroke". We will start you on Plavix and aspirin as recommended by neurology. Please follow-up with your doctor within 1 week for further testing and further medication management. Please return if you worsen. Please continue your current medications at home. Forms: PCP List
--- NOTE | 2023-09-02 18:47 | CT Report ---
PROCEDURE: HEAD WO INDICATIONS: R facial droop, resovled TECHNIQUE: Helical axial CT of the brain was obtained without contrast and reformatted in multiple p lanes. Radiation dose reduction was achieved using automated exposure control or adjustment of mA and /or kV according to patient size. COMPARISON: None FINDINGS: CSF spaces: Ventricles are appropriate in size and position. No hydrocephalus. Basal cisterns unre markable. Brain: No midline shift. No intracranial masses or hemorrhage. Weiner-white matter interface is norm al. Skull and face: Calvarium and skull base are unremarkable without suspicious lesion. Debris in both external auditory canals can be correlated with direct visualization Sinuses: Visualized sinuses and mastoids are clear. IMPRESSION: Atrophy and chronic ischemic change without hemorrhage or mass effect Reviewed by: Parth Mercedes MD on 09/02/2023 5:46 PM [email or web address] Approved by: Parth Mercedes MD on 09/02/2023 5:46 PM [email or web address] Station ID: [id number]
--- NOTE | 2023-09-02 18:56 | CT Report ---
PROCEDURE: CT Angio Head/Neck INDICATIONS: R facial droop, resovled TECHNIQUE: Helical axial CT of the head and neck was obtained during the arterial phase of a intrave nous contrast injection utilizing an angiographic protocol. Multiplanar traditional and MIP reformat s were also obtained. COMPLIANCE STATEMENTS: Any estimate of proximal ICA stenosis was calculated using NASCET guidelines. Dose reduction techniques included either automated exposure control or adjustment of exposure pilar eters. COMPARISON: None. FINDINGS: Image quality study is limited by motion artifact Cerebral CT Angiogram: Internal carotid arteries: No acute findings. Intracranial ICA are patent with no significant steno sis. No occlusion. No aneurysm. Anterior cerebral arteries: Unremarkable. No significant stenosis. No occlusion. No aneurysm. Middle cerebral arteries: Unremarkable. No significant stenosis. No occlusion. No aneurysm. 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 The P1 segments suppli ed by widely patent anterior communicating artery. Remainder of the distal vasculature unremarkable. High-grade stenosis of the distal left P2 COOKER SULFITE noted without occlusion Basilar artery: Unremarkable. No significant stenosis. No occlusion. No aneurysm. Vertebral arteries: Unremarkable as visualized. Dural venous sinuses: Unremarkable given phase of enhancement. Other: Arterial phase appearance of the brain parenchyma is unremarkable. Neck CT Angiogram: Internal carotid arteries: Unremarkable. No significant stenosis. No dissection or occlusion. Common carotid arteries: Unremarkable. No significant stenosis. No dissection or occlusion. External carotid arteries: Unremarkable. No occlusion. Vertebral arteries: Unremarkable. No significant stenosis. No dissection or occlusion. Aortic Arch and Mediastinum: Partially visualized aortic arch unremarkable without evidence of aneury sm. Origins of the great vessels unremarkable. Other: Arterial phase soft tissues of the neck are unremarkable. IMPRESSION: High-grade stenosis left P2 COOKER SULFITE without occlusion. Otherwise unremarkable CT angiogram without large vessel occlusion, aneurysm or vascular malformation Reviewed by: Parth Mercedes MD on 09/02/2023 5:55 PM [email or web address] Approved by: Parth Mercedes MD on 09/02/2023 5:55 PM AKDT Station ID: [id number]
--- NOTE | 2023-09-02 20:33 | MRI Report ---
PROCEDURE: BRAIN WO INDICATIONS: R facial droop, resovled TECHNIQUE: Noncontrast axial T1 spin echo, axial T2 fast spin echo, sagittal and axial FLAIR, coronal T2 fast sp in echo, axial gradient echo, axial diffusion and ADC through the brain. COMPARISON: Head CT, 09/02/2023. MRI brain, 09/16/2021. FINDINGS: Image quality: Immediate examination due to motion artifact. CSF Spaces: Basal cisterns are patent. No extra-axial fluid collections. Ventricles are normal in size and shape. Brain: No intracranial masses or hemorrhage. Weiner/white matter interface is normal. Brainstem appe ars normal. Diffusion-weighted images demonstrate no acute ischemic insult. No chronic ischemic ins ults. Mild cerebral volume loss and periventricular white matter chronic small vessel ischemic sanchez es. Normal intravascular flow voids are present. Skull and face: Calvarium has normal marrow signal. Orbits appear normal. Sinuses: There are mucous retention cyst in maxillary sinuses bilaterally. Mastoids are clear. IMPRESSION: 1. Limited examination because of motion artifacts. 2. No acute intracranial abnormalities. 3. Cerebral volume loss and periventricular white matter chronic small vessel ischemic changes. Reviewed by: Melissa Horn MD on 09/02/2023 8:31 PM PDT Approved by: Melissa Horn MD on 09/02/2023 8:31 PM PDT Station ID: [id number]
[2023-09-02] MEDS ORDERED: ASPIRIN CHEW 81 MG TABLET PO STA (20:50)
[2023-09-02] MEDS ORDERED: CLOPIDOGREL 75 MG TABLET PO STA (22:14)
[2023-09-02 22:38] VITALS: BP 130/74; O2SAT 100
[2023-09-03] MEDS ORDERED: iohexoL-300 100 ML VIAL IVP ONE (04:58)
== END 2023-09-02 22:37 | disposition home or self-care (01) ==
LOC: EDUNIT# → ED 15:55
DX: G45.9 Transient cerebral ischemic attack, unspecified (principal)
CPT/HCPCS: 36415; 70450; 70496; 70498; 70551; 80053; 83690; 85025; 85610; 85730; 93005; 99284; A9270; G0480; 80320

== ENCOUNTER 2023-09-03 16:49 | Outpatient (CLI) | payer MEDICARE, MEDICAID | END 2023-09-03 23:59 | disposition critical access hospital (66) | LOC: EMS 16:49 | DX: R41.0 Disorientation, unspecified (principal); R46.4 Slowness and poor responsiveness; R40.4 Transient alteration of awareness | CPT/HCPCS: A0425; A0429 ==

== ENCOUNTER 2023-09-03 17:32 | Emergency (ER) | payer MEDICARE, MEDICAID ==
--- NOTE | 2023-09-03 17:44 | ED Physician Documentation ---
History of Present Illness - Stated complaint Stated Complaint: SEIZURE - Additonal information Additional information: 67-year-old female is brought to the emergency department for evaluation of an altered mental status and concerns of possible seizure. She reportedly was at home talking with family when she got suddenly confused. They report that she dropped both her hands and began to slump forward. She was assisted to a chair and remained upright. For about 30 minutes the patient was nonverbal before she was able to speak again. The patient is amnesic to these events on arrival to the emergency department. No loss of bowel or bladder. The patient was seen yesterday in the emergency department when she had about 5 minutes of facial droop that had fully resolved. Symptoms were consistent with a TIA. Her NIHSS was 0 on arrival yesterday. There were no worrisome lab abnormalities or findings on the MRI. 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 This was discussed with neurology at [facility] and they recommended aspirin and Plavix as there is no therapeutic intervention for P2 segment stenosis. She was advised to follow closely with her PCP. Patient reports she has not filled the aspirin or Plavix. She is amnesic to the events of yesterday and today. Review of Systems Unable to obtain: Confused Constitutional: reports: Fever PD PAST MEDICAL HISTORY - Past Medical History Cardiovascular: Hypertension Respiratory: Asthma Endocrine/Autoimmune: None GI: None : None HEENT: None Psych: None Derm: None - Past Surgical History Ortho: Shoulder arthroplasty /DERRICK HAND: 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 HEENT: Tonsil/Adenoidectomy - Present Medications Home Medications: Ambulatory Orders Medication Instructions Recorded Confirmed Acetaminophen [Tylenol] 325 - 650 mg PO Q6H PRN 09/14/21 09/14/21 Aspirin Chewable [St Gigi 81 mg PO DAILY tablet 09/17/21 Aspirin] Atorvastatin [Lipitor] 40 mg PO QPM 30 Days #30 tablet 09/17/21 Losartan [Cozaar] 50 mg PO DAILY #30 tablet 09/17/21 Metoprolol Succinate [Toprol Xl] 50 mg PO DAILY 30 Days #60 tablet 09/17/21 levETIRAcetam [Keppra] 500 mg PO BID 30 Days #120 tablet 09/17/21 Levetiracetam [Keppra] 500 mg PO BID #60 tablet 01/08/22 Aspirin [Aspirin EC] 81 mg PO DAILY #30 tab 09/02/23 Clopidogrel [Plavix] 75 mg PO DAILY #30 tablet 09/02/23 - Allergies Allergies/Adverse Reactions: Allergies Allergy/AdvReac Type Severity Reaction Status Date / Time No Known Drug Allergies Allergy Verified 01/08/22 17:01 - Social History Does the pt smoke?: No Smoking Status: Never smoker PD ED PE NORMAL - General General: Alert and oriented X 3, No acute distress, Well developed/nourished - HEENT HEENT: Atraumatic - Neck Neck: Supple, no meningeal sign - Cardiac Cardiac: RRR, No murmur - Respiratory Respiratory: No respiratory distress, Clear bilaterally - Abdomen Abdomen: Normal bowel sounds, Soft - Derm Derm: Normal color, Warm and dry, No rash - Extremities Extremities: No deformity - Neuro Neuro: Alert and oriented X 3, 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 Relevant findings are: Rate: Rate (enter#) (85) Rhythm: NSR [place]: Normal Intervals: Normal [place]. No: Prolonged QT QRS: Normal Ischemia: Normal ST segments Compare to prior EKG: Unchanged from prior EKG Computer interpretation: Agree with computer - Labs Labs: Laboratory Tests 09/03/23 18:00 WBC 8.1 RBC 4.98 Hgb 14.7 Hct 44.9 MCV 90.2 MCH 29.5 MCHC 32.7 RDW 12.7 Plt Count 290 MPV 10.3 Neut # (Auto) 6.3 Lymph # (Auto) 1.4 L [place] # (Auto) 0.4 Eos # (Auto) 0.0 Baso # (Auto) 0.0 Absolute Nucleated RBC 0.00 Nucleated RBC % 0.0 PD Medical Decision Making - ED course Complexity details: reviewed results, re-evaluated patient, considered differential, d/w patient, d/w licensed tax consultant (T[place]) ED course: 67-year-old female returns emergency department for evaluation of altered mental status and concern for possible seizure-like activity. Seen here yesterday for brief episode of right-sided facial droop. At that time MRI was negative. CT angio of the head and neck showed high-grade stenosis of the P2 segment of the left BASE REMOVER. This was discussed with [facility] neurology who recommended dual antiplatelet therapy and follow-up as an outpatient. This afternoon the patient developed a period where she suddenly had a minor lapse in consciousness and slumped into a chair. She was unable to speak for about 30 minutes. EMS was summoned and by the time she arrived here the symptoms had fully dissipated. Her NIHSS on presentation was 0. I did repeat the patient's EKG which remained sinus rhythm. She was noted to be markedly hypertensive here 190/120. She was denying chest pain or shortness of air. We did obtain CBC and electrolytes. Per my interpretation essentially no change from yesterday with a stable hemoglobin of 14.7. Sodium is 135. BUN and creatinine are unchanged. Alcohol level remains negative. Given the concern for a possible seizure-like episode or even a recurrent TIA I did reach out to [facility] neurology and spoke with Dr. Moreno with neurology. She felt that the patient was likely having stuttering TIAs and excepted the patient in transfer to [facility] hospitals. She did recommend permissive hyperten braulio with a blood pressure of no greater than 220/100. I discussed with patient the plan to transfer to a hospital that has a higher level of care. She adamantly refused to remain in the hospital. She stated she had to care for her dog. She could not be convinced to stay. She understood she was leaving AGAINST MEDICAL ADVICE with a concern that she could have a strokelike event or CVA that would result in permanent deficits or loss of life. She was subsequently discharged AGAINST MEDICAL ADVICE with the understanding that she could return at any time for reevaluation should her symptoms change with no questions asked Departure - Departure Disposition: 07 Against Medical Advice Clinical Impression: TIA (transient ischemic attack) Hypertension Qualifiers: Hypertension type: unspecified Qualified Code(s): I10 - Essential (primary) hypertension Comments: You presented to the emergency department today because you had a lapse in consciousness and appeared to have another strokelike event or transient ischemic attack. This is a form of a stroke. We did speak with the neurologist at [facility] who felt it was critical that you remain in the hospital and be transferred for further care. You have declined to stay and are leaving AGAINST MEDICAL ADVICE. You do understand that by leaving you are running the risk of having a stroke that could permanently disable you or cause your . If at any point you find that your symptoms change or you wish to return for immediate treatment you are welcome to return without any questions asked. NIHSS - Time Time: 17:40 - Level of Consciousness Level of consciousness: (0) Alert, Keenly responsive LOC Questions: (0) Answers both Q's correct LOC Commands: (0) Performs both correctly - Gaze Best Gaze: (0) Normal - Visual Visual: (0) No loss - Facial Palsy Facial Palsy: (0) Normal, symmetrical movement - Motor Arms (both separate) Motor Arm (right): (0) No drift Motor Arm (left): (0) No drift - Motor Legs (both separate) Motor Leg (right): (0) No drift Motor Leg (left): (0) No drift - Limb Ataxia Limb Ataxia: (0) Absent - Sensory Sensory: (0) Normal - Best Language Best Language: (0) No aphasia - Dysarthria Dysarthria: (0) Normal - Extinction and Inattention (formally neg Extinction and inattention: (0) No abnormality - Total Score/Results Total Score/Result: 0
[2023-09-03 18:06] LABS: BASOPHILS % (AUTO) 0.5 %; EOSINOPHILS % (AUTO) 0.2 %; HCT - HEMATOCRIT 44.9 % (37.0-47.0); HGB - HEMOGLOBIN 14.7 g/dL (12.0-16.0); LYMPHOCYTES # (AUTO) 1.4 10^3/uL (1.5-3.5); LYMPHOCYTES % (AUTO) 16.9 %; MEAN CORPUSCULAR HEMOGLOBIN 29.5 pg (27.0-31.0); MEAN CORPUSCULAR HGB CONC 32.7 g/dL (32.0-36.0); MEAN CORPUSCULAR VOLUME 90.2 fL (81.0-99.0); MEAN PLATELET VOLUME 10.3 fL (7.9-10.8); MONOCYTES # (AUTO) 0.4 10^3/uL (0.0-1.0); MONOCYTES % (AUTO) 4.6 %; NEUTROPHILS # (AUTO) 6.3 10^3/uL (1.5-6.6); NEUTROPHILS % (AUTO) 77.4 %; PLT - PLATELET COUNT 290 10^3/uL (130-450); RED BLOOD COUNT 4.98 10^6/uL (4.20-5.40); RED CELL DISTRIBUTION WIDTH 12.7 % (12.0-15.0); WHITE BLOOD COUNT 8.1 x10^3/uL (4.8-10.8)
[2023-09-03] MEDS ORDERED: ASPIRIN CHEW 81 MG TABLET PO STA (18:13)
[2023-09-03] MEDS ORDERED: CLOPIDOGREL 75 MG TABLET PO STA (18:14)
[2023-09-03] MEDS ORDERED: SODIUM CHLORIDE 0.9% 1,000 ML IV STA (18:15)
[2023-09-03 18:17] VITALS: BP 173/111; O2SAT 97
[2023-09-03 18:27] LABS: ALBUMIN 4.4 g/dL (3.2-5.5); ALBUMIN/GLOBULIN RATIO 1.6 (1.0-2.2); ALKALINE PHOSPHATASE 79 IU/L (42-121); ALT ALANINE AMINOTRANSFERASE 18 IU/L (10-60); AST ASPARTATE AMINOTRANSFERASE 17 IU/L (10-42); BILIRUBIN,TOTAL 0.9 mg/dL (0.2-1.0); BUN - BLOOD UREA NITROGEN 14 mg/dL (6-20); CARBON DIOXIDE - CO2 26 mmol/L (21-32); CHLORIDE 100 mmol/L (101-111); CREATININE 0.9 mg/dL (0.6-1.3); ETOH - ETHANOL < 10.0 mg/dL; GFR - MDRD 62 (>89); GLUCOSE 99 mg/dL (74-104); LIPASE 26 U/L (11-82); POTASSIUM 3.9 mmol/L (3.5-4.5); SODIUM 135 mmol/L (135-145); TOTAL PROTEIN 7.2 g/dL (6.4-8.9)
--- NOTE | 2023-09-03 18:39 | XRAY Report ---
PROCEDURE: Chest 1 View X-Ray INDICATIONS: Chest Pain TECHNIQUE: One view of the chest was acquired. COMPARISON: None. FINDINGS: Surgical changes and devices: Patient is status post prior right shoulder arthroplasty. Lungs and pleura: No pleural effusions or pneumothorax. Lungs are clear. Mediastinum: Mediastinal contours appear normal. Heart size is enlarged. Bones and chest wall: No suspicious bony lesions. Overlying soft tissues appear unremarkable. IMPRESSION: No acute cardiopulmonary process. Reviewed by: Jacoby Dominguez MD on 09/03/2023 6:38 PM PDT Approved by: Jacoby Dominguez MD on 09/03/2023 6:38 PM PDT Station ID: [id number]
--- OUTSIDE RECORDS SUMMARY | 2023-09-03 18:46 | EXTERNAL MEDICAL SUMMARY RPT | Continuity of Care Document ---
Author Name Unknown Address [address] [place] [address] Phone Organization [facility] Address [address] [place] [address] Phone Care Team Providers Care Supervisor [place] Name Role Phone Unavailable Unavailable Unavailable Dewayne, Provider Unavailable Unavailable Problems date description facility 2023-09-02 00:00 Acute meniscal tear, medial All 2023-09-02 00:00 Osteopenia All 2023-09-02 00:00 Focal onset impaired awareness epileptic seizure All 2023-09-02 00:00 Disorder of bone and cartilage, unspecified All 2023-09-02 00:00 Other convulsions All 2023-09-02 00:00 Tear of medial cartilage or men iscus of knee, current All 2023-09-02 00:00 Localization-related (focal) (partial) symptomatic epilepsy and epileptic syndromes with complex partial seizures, not intractable, without status epilepticus All 2023-09-02 00:00 Other specified diso rders of bone density and structure, unspecified site All 2023-09-02 00:00 Other tear of medial meniscus, current injury, unspecified knee, initial encounter All 2023-09-03 00:00 Acute meniscal tear, medial All 2023-09-03 00:00 Osteopenia All 2023-09-03 00:00 Focal onset impaired awareness epileptic seizure All 2023-09-03 00:00 Disorder of bone and cartilage, unspecified All 2023-09-03 00:00 Other convulsions All 2023-09-03 00:00 Tear of medial cartilage or men iscus of knee, current All 2023-09-03 00:00 Localization-related (focal) (partial) symptomatic epilepsy and epileptic syndromes with complex partial seizures, not intractable, without status epilepticus All 2023-09-03 00:00 Other specified diso rders of bone density and structure, unspecified site All 2023-09-03 00:00 Other tear of medial meniscus, current injury, unspecified knee, initial encounter All Results/Labs test date facility value unit notes Social History date description facility 2023-09-02 00:00 Unknown if ever smoked All 2023-09-03 00:00 Unknown if ever smoked All
== END 2023-09-03 18:28 | disposition left against medical advice (07) ==
LOC: EDUNIT# → ED 17:32
DX: G45.9 Transient cerebral ischemic attack, unspecified (principal); I10 Essential (primary) hypertension
CPT/HCPCS: 36415; 71045; 80053; 83690; 85025; 93005; 99283; 99284; G0480; 80320

== ENCOUNTER 2023-10-16 14:18 | Outpatient (CLI) | payer MEDICARE, MEDICAID | END 2023-10-16 14:19 | disposition home or self-care (01) | LOC: EMS 14:18 | DX: R41.82 Altered mental status, unspecified (principal) | CPT/HCPCS: A0425; A0429 ==

== ENCOUNTER 2023-10-16 14:55 | Emergency (ER) | payer MEDICARE, MEDICAID ==
--- NOTE | 2023-10-16 15:06 | ED Physician Documentation ---
PD HPI ALTERED MENTAL STATUS - Stated complaint Stated Complaint: AMS - History obtained from History obtained from: Patient, EMS - History of Present Illness Timing - onset: How many minutes ago, Today Timing - duration: Minutes (reportedly the patient was at a restaurant and suddenly was seem slumped over with face on table. No reported injury nor seizure activity to the EMS Medic when they arrived. Pt was awake but confused on EMS arrival, improved to baseline enroute to ED. No complaints.) Timing - details: Abrupt onset, Now resolved Quality / character: Less responsive, Confused Associated symptoms: Dyspnea (has recurrent bronchitis and will have dyspnea with cough frequently, also related to environmental irritants.). 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 Medic reports he has gone to calls for similar episdoes at restaurants 3-4 times in recent past. Pt lives alone so she is not sure if these happen at home as well. No history of injuries with any of them. No tongue bitin) Recently seen: Emergency Dept (Sep 02 2023 for similar. Labs, brain MRI were normal.) Review of Systems Constitutional: denies: Fever, Chills Nose: denies: Rhinorrhea / runny nose, Congestion Throat: denies: Sore throat Cardiac: denies: Chest pain / pressure, Palpitations Respiratory: reports: Dyspnea, Cough (intermittently) Skin: denies: Rash, Lesions Neurologic: denies: Focal weakness, Headache, Head injury PD PAST MEDICAL HISTORY - Past Medical History Past Medical History: Yes Cardiovascular: Hypertension Respiratory: Asthma Endocrine/Autoimmune: None GI: None : None HEENT: None Psych: None Derm: None - Past Surgical History Past Surgical History: Yes 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 HEENT: Tonsil/Adenoidectomy - Present Medications Home Medications: Ambulatory Orders Medication Instructions Recorded Confirmed Acetaminophen [Tylenol] 325 - 650 mg PO Q6H PRN 09/14/21 09/14/21 Aspirin Chewable [St Gigi 81 mg PO DAILY tablet 09/17/21 Aspirin] Atorvastatin [Lipitor] 40 mg PO QPM 30 Days #30 tablet 09/17/21 Losartan [Cozaar] 50 mg PO DAILY #30 tablet 09/17/21 Metoprolol Succinate [Toprol Xl] 50 mg PO DAILY 30 Days #60 tablet 09/17/21 levETIRAcetam [Keppra] 500 mg PO BID 30 Days #120 tablet 09/17/21 Levetiracetam [Keppra] 500 mg PO BID #60 tablet 01/08/22 Aspirin [Aspirin EC] 81 mg PO DAILY #30 tab 09/02/23 Clopidogrel [Plavix] 75 mg PO DAILY #30 tablet 09/02/23 Aspirin [Aspirin EC] 81 mg PO DAILY #60 tab 10/16/23 Losartan [Cozaar] 50 mg PO DAILY 30 Days #30 tablet 10/16/23 - Allergies Allergies/Adverse Reactions: Allergies Allergy/AdvReac Type Severity Reaction Status Date / Time No Known Drug Allergies Allergy Verified 01/08/22 17:01 - Social History Does the pt smoke?: No Smoking Status: Never smoker Does the pt drink ETOH?: Yes ETOH Use: Wine Does the pt have substance abuse?: No - Immunizations Immunizations are current?: Yes PD ED PE NORMAL - Vitals Vital signs reviewed: Yes (elevated BP) - General General: Alert and oriented X 3, No acute distress, Well developed/nourished - HEENT HEENT: Atraumatic, PERRL, EOMI - Neck Neck: Supple, no meningeal sign, No adenopathy - Cardiac Cardiac: RRR, No murmur - Respiratory Respiratory: Clear bilaterally - Abdomen Abdomen: Soft, Non tender - Back Back: No CVA TTP - Derm Derm: Normal color, Warm and dry - Extremities Extremities: No edema, No calf tenderness / cord - Neuro Neuro: Alert and oriented X 3, No motor deficit. No: Normal speech (mild stuttering noted which pt says has been lifelong problem. ) Results - Vitals Vitals: Vital Signs - 24 hr 10/16/23 10/16/23 10/16/23 14:57 15:24 15:52 Temperature 35.8 C L Heart Rate 81 86 86 Respiratory 15 18 19 Rate Blood Pressure 210/128 H 204/114 H 221/116 H O2 Saturation 99 98 97 10/16/23 10/16/23 10/16/23 16:03 16:30 17:00 Temperature Heart Rate 68 82 80 Respiratory 17 18 18 Rate Blood Pressure 210/110 H 205/126 H 200/116 H O2 Saturation 97 100 97 10/16/23 17:28 Temperature Heart Rate 80 Respiratory 18 Rate Blood Pressure 199/101 H O2 Saturation 98 Oxygen O2 Source Room air - Labs Labs: Laboratory Tests 10/16/23 10/16/23 10/16/23 15:30 15:30 16:30 WBC 7.4 RBC 5.19 Hgb 15.1 Hct 47.3 H MCV 91.1 MCH 29.1 MCHC 31.9 L RDW 12.7 Plt Count 296 MPV 10.3 Neut # (Auto) 5.6 Lymph # (Auto) 1.3 L [place] # (Auto) 0.4 Eos # (Auto) 0.2 Baso # (Auto) 0.0 Absolute Nucleated RBC 0.00 Nucleated RBC % 0.0 Sodium 135 Potassium 4.3 Chloride 100 L Carbon Dioxide 30 Anion Gap 5.0 L BUN 15 Creatinine 1.0 Estimated GFR (MDRD) 55 L Glucose 98 Calcium 10.0 Magnesium 1.9 Total Bilirubin 0.4 AST 14 ALT 12 Alkaline Phosphatase 72 Total Protein 7.1 Albumin 4.5 Globulin 2.6 Albumin/Globulin Ratio 1.7 Lipase 44 Urine Color LT. YELLOW Urine Clarity CLEAR Urine pH 6.5 Ur Specific [place] <=1.005 Urine Protein NEGATIVE Urine Glucose (UA) NEGATIVE Urine Ketones NEGATIVE Urine Occult Blood NEGATIVE Urine Nitrite NEGATIVE Urine Bilirubin NEGATIVE Urine Urobilinogen 0.2 (NORMAL) Ur Leukocyte Esterase NEGATIVE Urine RBC None Seen Urine WBC 0-3 Ur Squamous Epith Cells FEW Squamous Urine Bacteria None Seen Urine Culture Comments NOT INDICATED Ethyl Alcohol < 10.0 PD Medical Decision Making - ED course Complexity details: reviewed old records (prior similar episodes with concern for TIA and another time thought process for consideration of partial/nontonic seizure.), reviewed results (renal function is reasonable. SOdium level is normal. Other labs also okay. Sep 02, 2023 Had had brain MRI several months ago without abnormal fidnings. I did not see need for futher testing beyond the basic labs at this time. To f/u primary care. Consider referral for seizure eval?), re-evaluated patient (still without symptoms and feeling at baseline. BP remains elevated and shared discussion with pt is to start BP med. Given initial dose Losartan in ED and Rx sent to her pharmacy. ), considered differential, d/w patient Departure - Departure Disposition: Home, Self Care Clinical Impression: Altered mental status, Elevated blood pressure reading Condition: Stable Record reviewed to determine appropriate education?: Yes Follow-Up: [facility] [place] [Provider Group] Prescriptions: Aspirin [Aspirin EC] 81 mg PO DAILY #60 tab Losartan [Cozaar] 50 mg PO DAILY 30 Days #30 tablet Comments: It is unclear the cause of your episode of altered mental status. Considerations given you have had several episodes could be atypical seizures. Follow-up with new primary care for further investigation of this. Since its not really clear, I do not really want to start a seizure medicine but more see if further work-up or evaluation is appropriate. Your blood pressure was fairly elevated today. Looks like on prior visits its been slightly elevated or borderline so starting a blood pressure medicine daily would be appropriate. It had also been suggested in the past with a prior episode to take a aspirin daily. I would suggest doing that regularly. Stay well-hydrated. Follow-up with new primary care. I provided the phone number for the [place] primary care clinic. Call for an appointment. I sent your prescriptions to the [facility] in [place]. Return as needed. Forms: PCP List Discharge Date/Time: 10/16/23 17:28
[2023-10-16 15:39] LABS: BASOPHILS % (AUTO) 0.5 %; EOSINOPHILS # (AUTO) 0.2 10^3/uL (0.0-0.7); EOSINOPHILS % (AUTO) 2.2 %; HCT - HEMATOCRIT 47.3 % (37.0-47.0); HGB - HEMOGLOBIN 15.1 g/dL (12.0-16.0); LYMPHOCYTES # (AUTO) 1.3 10^3/uL (1.5-3.5); LYMPHOCYTES % (AUTO) 17.1 %; MEAN CORPUSCULAR HEMOGLOBIN 29.1 pg (27.0-31.0); MEAN CORPUSCULAR HGB CONC 31.9 g/dL (32.0-36.0); MEAN CORPUSCULAR VOLUME 91.1 fL (81.0-99.0); MEAN PLATELET VOLUME 10.3 fL (7.9-10.8); MONOCYTES # (AUTO) 0.4 10^3/uL (0.0-1.0); MONOCYTES % (AUTO) 4.7 %; NEUTROPHILS # (AUTO) 5.6 10^3/uL (1.5-6.6); NEUTROPHILS % (AUTO) 75.2 %; PLT - PLATELET COUNT 296 10^3/uL (130-450); RED BLOOD COUNT 5.19 10^6/uL (4.20-5.40); RED CELL DISTRIBUTION WIDTH 12.7 % (12.0-15.0); WHITE BLOOD COUNT 7.4 x10^3/uL (4.8-10.8)
[2023-10-16 15:54] LABS: ALBUMIN 4.5 g/dL (3.2-5.5); ALBUMIN/GLOBULIN RATIO 1.7 (1.0-2.2); ALKALINE PHOSPHATASE 72 IU/L (42-121); ALT ALANINE AMINOTRANSFERASE 12 IU/L (10-60); AST ASPARTATE AMINOTRANSFERASE 14 IU/L (10-42); BILIRUBIN,TOTAL 0.4 mg/dL (0.2-1.0); BUN - BLOOD UREA NITROGEN 15 mg/dL (6-20); CARBON DIOXIDE - CO2 30 mmol/L (21-32); CHLORIDE 100 mmol/L (101-111); ETOH - ETHANOL < 10.0 mg/dL; GFR - MDRD 55 (>89); GLUCOSE 98 mg/dL (74-104); LIPASE 44 U/L (11-82); MAGNESIUM 1.9 mg/dL (1.7-2.3); POTASSIUM 4.3 mmol/L (3.5-4.5); SODIUM 135 mmol/L (135-145); TOTAL PROTEIN 7.1 g/dL (6.4-8.9)
[2023-10-16] MEDS: LOSARTAN 50 MG TABLET PO STA (16:11)
[2023-10-16] MEDS: ASPIRIN 325 MG TABLET PO STA (16:11)
[2023-10-16 16:36] LABS: BILIRUBIN,URINE NEGATIVE (NEGATIVE); GLUCOSE, URINE (UA) NEGATIVE (NEGATIVE); KETONES,URINE (UA) NEGATIVE (NEGATIVE); LEUKOCYTE ESTERASE, URINE NEGATIVE (NEGATIVE); NITRITE,URINE NEGATIVE (NEGATIVE); OCCULT BLOOD,URINE NEGATIVE (NEGATIVE); PH,URINE 6.5 PH (5.0-7.5); PROTEIN,URINE NEGATIVE (NEGATIVE); UROBILINOGEN,URINE 0.2 (NORMAL) E.U./dL (NORMAL)
[2023-10-16 16:37] LABS: CLARITY,URINE CLEAR (CLEAR)
[2023-10-16 16:52] LABS: BACTERIA,URINE None Seen /HPF (None Seen); RBC,URINE None Seen /HPF (0-5); SQUAMOUS EPITHELIAL CELL,UR FEW Squamous (<= Few); WBC,URINE 0-3 /HPF (0-5)
[2023-10-16] MEDS: ACETAMINOPHEN 500 MG TABLET PO STA (17:26)
[2023-10-16 17:37] VITALS: BP 199/101; O2SAT 98
== END 2023-10-16 17:28 | disposition home or self-care (01) ==
LOC: EDUNIT# → ED 14:55
DX: R41.82 Altered mental status, unspecified (principal); I10 Essential (primary) hypertension; Z79.82 Long term (current) use of aspirin; Z79.899 Other long term (current) drug therapy; Z79.02 Long term (current) use of antithrombotics/antiplatelets
CPT/HCPCS: 36415; 80053; 80320; 81001; 83690; 83735; 85025; 87086; 99283; 99284

== ENCOUNTER 2023-11-13 14:40 | Outpatient (CLI) | payer MEDICARE, MEDICAID | END 2023-11-13 14:41 | disposition critical access hospital (66) | LOC: EMS 14:40 | DX: R29.810 Facial weakness (principal); R40.4 Transient alteration of awareness | CPT/HCPCS: A0425; A0429 ==

== ENCOUNTER 2023-11-13 15:17 | Emergency (ER) | payer MEDICARE, MEDICAID ==
[2023-11-13] MEDS ORDERED: levETIRAcetam 250 MG TABLET PO STA (15:25)
--- NOTE | 2023-11-13 15:29 | ED Physician Documentation ---
PD HPI FOCAL NEURO - Stated complaint Stated Complaint: AMS - Chief complaint Chief Complaint: Neuro - History obtained from History obtained from: Patient, EMS - Additional information Additional information: She has a history of seizure disorder, has not been routinely taking her medications "since my doctor retired." She is to see nurse practitioner Nadja Oh who, if memory serves, retired about 3 years ago. She was reportedly acting strange at work and there was a concern for a facial droop. She now feels better. There was consideration for an absence seizure. She has been seen for similar episodes frequently recently. On September 02 she was here for a facial droop that resolved and she had an MRI subsequently that was normal. She returned the next day, September 03, for possible seizure. On that date she left AGAINST MEDICAL ADVICE. On October 16 she was confused and slumped over for a time, came back to normal and it was presumed to be a seizure. 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 HEENT: Tonsil/Adenoidectomy - Present Medications Home Medications: Ambulatory Orders Medication Instructions Recorded Confirmed Acetaminophen [Tylenol] 325 - 650 mg PO Q6H PRN 09/14/21 09/14/21 Aspirin Chewable [St Gigi 81 mg PO DAILY tablet 09/17/21 Aspirin] Atorvastatin [Lipitor] 40 mg PO QPM 30 Days #30 tablet 09/17/21 Losartan [Cozaar] 50 mg PO DAILY #30 tablet 09/17/21 Metoprolol Succinate [Toprol Xl] 50 mg PO DAILY 30 Days #60 tablet 09/17/21 levETIRAcetam [Keppra] 500 mg PO BID 30 Days #120 tablet 09/17/21 Levetiracetam [Keppra] 500 mg PO BID #60 tablet 01/08/22 Aspirin [Aspirin EC] 81 mg PO DAILY #30 tab 09/02/23 Clopidogrel [Plavix] 75 mg PO DAILY #30 tablet 09/02/23 Aspirin [Aspirin EC] 81 mg PO DAILY #60 tab 10/16/23 Levetiracetam [Keppra] 500 mg PO BID #60 tablet 11/13/23 Losartan [Cozaar] 50 mg PO DAILY 30 Days #30 tablet 11/13/23 - Allergies Allergies/Adverse Reactions: Allergies Allergy/AdvReac Type Severity Reaction Status Date / Time No Known Drug Allergies Allergy Verified 11/13/23 15:24 - Social History Does the pt smoke?: No Smoking Status: Never smoker Does the pt drink ETOH?: Yes Does the pt have substance abuse?: No - Immunizations Immunizations are current?: Yes PD ED PE NORMAL - Vitals Vital signs reviewed: Yes - General General: Alert and oriented X 3, No acute distress - HEENT HEENT: PERRL, EOMI - Neck Neck: Supple, no meningeal sign, No bony TTP - Neuro Neuro: Alert and oriented X 3, 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 Eye Opening: Spontaneous Motor: Obeys Commands Verbal: Oriented GCS Score: 15 NIHSS - Time Time: 15:23 - Level of Consciousness Level of consciousness: (0) Alert, Keenly responsive LOC Questions: (0) Answers both Q's correct LOC Commands: (0) Performs both correctly - Gaze Best Gaze: (0) Normal - Visual Visual: (0) No loss - Facial Palsy Facial Palsy: (0) Normal, symmetrical movement - Motor Arms (both separate) Motor Arm (right): (0) No drift Motor Arm (left): (0) No drift - Motor Legs (both separate) Motor Leg (right): (0) No drift Motor Leg (left): (0) No drift - Limb Ataxia Limb Ataxia: (0) Absent - Sensory Sensory: (0) Normal - Best Language Best Language: (0) No aphasia - Dysarthria Dysarthria: (0) Normal - Extinction and Inattention (formally neg Extinction and inattention: (0) No abnormality - Total Score/Results Total Score/Result: 0 Results - Vitals Vitals: Vital Signs - 24 hr 11/13/23 11/13/23 11/13/23 15:21 15:27 16:26 Temperature 36.3 C L 36.8 C Heart Rate 93 81 94 Respiratory 14 18 18 Rate Blood Pressure 182/115 H 182/115 H 201/126 H O2 Saturation 98 94 100 Oxygen O2 Source Room air PD Medical Decision Making - ED course ED course: 68-year-old woman with a resolved issue, question atypical seizure. She has not been compliant with her Keppra as she does not currently have a primary care physician and has not been taking it. I offered to refill it and she accepted. I emphasized the importance of primary care follow-up. Prior to discharge her blood pressure was noted to remain quite elevated. She has not been compliant with recently prescribed losartan either and this was refilled as well. Departure - Departure Disposition: 01 Home, Self Care Clinical Impression: Altered mental status Qualifiers: Altered mental status type: unspecified Qualified Code(s): R41.82 - Altered mental status, unspecified Condition: Good Record reviewed to determine appropriate education?: Yes Instructions: ED Seizure Recurrent Follow-Up: [facility] [Provider Group] Prescriptions: Losartan [Cozaar] 50 mg PO DAILY 30 Days #30 tablet Levetiracetam [Keppra] 500 mg PO BID #60 tablet Comments: We presume the episode today was a seizure, I have sent the prescription for the refill of your seizure medications to the [facility] with a request that they deliver them. It is very important for you to reestablish primary care not only for the seizure disorder, but also for routine care such as mammography, colonoscopy, cholesterol screening etc. Please call the clinic on Wednesday for the next available appointment. Return for new or worsening symptoms. Per [place] state law you are not to drive until seizure-free for 6 months. Forms: PCP List Discharge Date/Time: 11/13/23 17:05
[2023-11-13] MEDS ORDERED: IBUPROFEN 600 MG TABLET PO STA (16:10)
[2023-11-13 16:35] VITALS: BP 201/126; O2SAT 100
== END 2023-11-13 17:05 | disposition home or self-care (01) ==
LOC: EDUNIT# → ED 15:17
DX: R41.82 Altered mental status, unspecified (principal); Z91.148 Patient's other noncompliance with medication regimen for other reason
CPT/HCPCS: 99283; 99284; A9270

== ENCOUNTER 2024-02-01 11:46 | Outpatient (CLI) | payer MEDICARE, MEDICAID | END 2024-02-01 23:59 | disposition critical access hospital (66) | LOC: EMS 11:46 | DX: R41.0 Disorientation, unspecified (principal); M25.511 Pain in right shoulder; R26.9 Unspecified abnormalities of gait and mobility; W18.30XA Fall on same level, unspecified, initial encounter; Y92.511 Restaurant or cafe as the place of occurrence of the external cause | CPT/HCPCS: A0425; A0429 ==

== ENCOUNTER 2024-02-01 12:14 | Emergency (ER) | payer MEDICARE, MEDICAID ==
[2024-02-01 12:26] LABS: BASOPHILS % (AUTO) 0.5 %; EOSINOPHILS # (AUTO) 0.1 10^3/uL (0.0-0.7); EOSINOPHILS % (AUTO) 1.1 %; HCT - HEMATOCRIT 45.8 % (37.0-47.0); HGB - HEMOGLOBIN 14.9 g/dL (12.0-16.0); LYMPHOCYTES # (AUTO) 1.1 10^3/uL (1.5-3.5); LYMPHOCYTES % (AUTO) 20.2 %; MEAN CORPUSCULAR HEMOGLOBIN 29.7 pg (27.0-31.0); MEAN CORPUSCULAR HGB CONC 32.5 g/dL (32.0-36.0); MEAN CORPUSCULAR VOLUME 91.2 fL (81.0-99.0); MEAN PLATELET VOLUME 10.8 fL (7.9-10.8); MONOCYTES # (AUTO) 0.2 10^3/uL (0.0-1.0); MONOCYTES % (AUTO) 3.8 %; NEUTROPHILS # (AUTO) 4.1 10^3/uL (1.5-6.6); PLT - PLATELET COUNT 276 10^3/uL (130-450); RED BLOOD COUNT 5.02 10^6/uL (4.20-5.40); WHITE BLOOD COUNT 5.5 x10^3/uL (4.8-10.8)
[2024-02-01 12:35] LABS: MAGNESIUM 1.9 mg/dL (1.7-2.3)
[2024-02-01 12:41] LABS: ALBUMIN 4.2 g/dL (3.2-5.5); ALBUMIN/GLOBULIN RATIO 1.6 (1.0-2.2); BILIRUBIN,TOTAL 0.6 mg/dL (0.2-1.0); CALCIUM 9.7 mg/dL (8.5-10.3); CREATININE 0.8 mg/dL (0.6-1.3); POTASSIUM 4.3 mmol/L (3.5-4.5); TOTAL PROTEIN 6.8 g/dL (6.4-8.9)
[2024-02-01] MEDS ORDERED: IOVERSOL 320 100 ML VIAL IVP ONE (12:49)
--- NOTE | 2024-02-01 13:31 | CT Report ---
PROCEDURE: Head W/O Stroke Protocol INDICATIONS: confused, facial droop suddenly, improved TECHNIQUE: Noncontrast 4.5 mm thick angled axial sections acquired from the foramen magnum to the vertex, with c oronal reformats. For radiation dose reduction, the following was used: automated exposure control, adjustment of mA and/or kV according to patient size. COMPARISON: 09/02/2023 FINDINGS: Image quality: Diagnostic CSF spaces: Basal cisterns are patent. Lateral ventricles are symmetric. Volume: Vascular calcifications. Periventricular white matter disease is commonly seen with chronic m icroangiopathy. Volume loss is present. These findings are mild to moderate. Brain: No acute hemorrhage. No large territory correa-white differentiation loss Craniofacial structures: Paranasal sinuses appear clear. Prominence of the pituitary in the sella, no t well evaluated on this study. IMPRESSION: No acute intracranial hemorrhage or other acute intracranial abnormality. Report called to the ED. Reviewed by: Alfa Carrasco MD on 02/01/2024 12:51 PM PST Approved by: Alfa Carrasco MD on 02/01/2024 12:51 PM PST Station ID: [id number]
--- NOTE | 2024-02-01 13:34 | CT Report ---
PROCEDURE: Angio Head/Neck INDICATIONS: fall, confused, aphasia briefly TECHNIQUE: After the administration of intravenous contrast, 1 mm thick sections acquired from the aortic arch t hrough the [place]. 3-dimensional cdiwhrn-vydmbdioq-ijbmaxgusb (MIP) and/or volume renderin g reformats were acquired of the central intracranial vasculature and neck separately. For radiation dose reduction, the following was used: automated exposure control, adjustment of mA and/or kV acco rding to patient size. CONTRAST: Intravenous iodinated contrast COMPARISON: 09/02/2023 FINDINGS: Image quality: Diagnostic. HEAD CT: CSF Spaces: Basal cisterns are patent. No extra-axial fluid collections. Ventricles are normal in size and shape. Brain: The brain is within normal limits for age and scanning technique. Skull and face: Calvarium and visualized facial bones appear intact, without suspicious lesions. Sinuses: Mild right greater than left maxillary sinus mucosal thickening.. HEAD CT ANGIOGRAPHY: Anterior circulation: Intracranial internal carotid arteries are normal in size and flow. The flow within the paired anterior cerebral arteries is normal and symmetric. The flow within the middle cer ebral arteries is normal and symmetric. The anterior communicating artery is seen. No aneurysms are seen. Posterior circulation: Visualized portions of the vertebral arteries demonstrate normal caliber, and join to form a normal appearing basilar artery. Near origin of the right posterior cerebral a rtery. Flow within the posterior cerebral arteries is normal and symmetric. No aneurysms are seen. NECK CT ANGIOGRAPHY: Carotid system: The great vessels demonstrate a conventional anatomy as they arise from the aortic a rch. The origins of the common carotid arteries appear patent. The common carotid arteries demonstr ate normal caliber and courses. The bifurcation regions are both widely patent. The internal caroti d arteries demonstrate normal calibers and courses. Posterior circulation: The origins of the vertebral arteries both appear widely patent. The more mejia perior extracranial portions of both vertebral arteries also demonstrate normal courses and calibers. They join to form a normal appearing basilar artery. Soft tissues: Visualized neck soft tissues demonstrate no suspicious abnormalities. Bones: No suspicious bony lesions. Visualized cervical spine appears normally aligned. IMPRESSION: 1. No acute process involving the arterial tree of the head and neck. 2. Maxillary sinus disease. The estimate of stenosis included in the report of the imaging study was calculated using the NASCET method Reviewed by: Ivana Millan MD on 02/01/2024 1:13 PM PST Approved by: Ivana Millan MD on 02/01/2024 1:13 PM PST Station ID: [id number]
--- NOTE | 2024-02-01 16:01 | ED Physician Documentation ---
PD HPI HEAD INJURY - Stated complaint Stated Complaint: CODE STROKE - Chief complaint Chief Complaint: Neuro - History obtained from History obtained from: Patient, EMS (gave information about pt's friend report of the event and pt symptoms and neuro enroute.) - History of Present Illness Mechanism of head injury: Fell (she was walking her dog with a friend, slipped and fell backward striking back of head. Was witnessed brief LOC for few seconds, then awoke and was dazed, confused, nauseated. Friend though maybe faciql droop for few seconds. No lateralized weakness.) Where head injury occurred: [place]ing [place] Timing - onset: How many hours ago (1), Today Pain level max: 2 Pain level now: 2 Location of injury: Back Quality of pain: Aching Associated symptoms: LOC, AMS (confused for several minutes or more.), Amnesia (not remembering the fall itself.), Nausea / vomiting. No: Neck pain, Paresthesias Symptoms worsen with: Palpation Contributing factors: No: Anticoagulated (no DOAC, but does take antiplatelet Plavix.), Intoxicated Similar symptoms before: Has not had sx before Recently seen: Not recently seen Review of Systems Unable to obtain: Other (she was more alert after ED arrival and able to answer ROS.) Constitutional: denies: Fever, Chills Nose: denies: Rhinorrhea / runny nose, Congestion Throat: denies: Sore throat Respiratory: denies: Cough GI: denies: Vomiting, Diarrhea PD PAST MEDICAL HISTORY - Past Medical History Past Medical History: Yes Cardiovascular: Hypertension Respiratory: Asthma Neuro: CVA Endocrine/Autoimmune: None GI: None : None HEENT: None Psych: None Derm: None - Past Surgical History Past Surgical History: Yes Ortho: Shoulder arthroplasty /PYROGLAZER: 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 HEENT: Tonsil/Adenoidectomy - Present Medications Home Medications: Ambulatory Orders Medication Instructions Recorded Confirmed Acetaminophen [Tylenol] 325 - 650 mg PO Q6H PRN 09/14/21 09/14/21 Aspirin Chewable [[place] 81 mg PO DAILY tablet 09/17/21 Aspirin] Atorvastatin [Lipitor] 40 mg PO QPM 30 Days #30 tablet 09/17/21 Losartan [Cozaar] 50 mg PO DAILY #30 tablet 09/17/21 Metoprolol Succinate [Toprol Xl] 50 mg PO DAILY 30 Days #60 tablet 09/17/21 levETIRAcetam [Keppra] 500 mg PO BID 30 Days #120 tablet 09/17/21 Levetiracetam [Keppra] 500 mg PO BID #60 tablet 01/08/22 Aspirin [Aspirin EC] 81 mg PO DAILY #30 tab 09/02/23 Clopidogrel [Plavix] 75 mg PO DAILY #30 tablet 09/02/23 Aspirin [Aspirin EC] 81 mg PO DAILY #60 tab 10/16/23 Levetiracetam [Keppra] 500 mg PO BID #60 tablet 11/13/23 Losartan [Cozaar] 50 mg PO DAILY 30 Days #30 tablet 11/13/23 - Allergies Allergies/Adverse Reactions: Allergies Allergy/AdvReac Type Severity Reaction Status Date / Time No Known Drug Allergies Allergy Verified 02/01/24 12:54 - Social History Does the pt smoke?: No Smoking Status: Never smoker Does the pt drink ETOH?: Yes Does the pt have substance abuse?: No - Immunizations Immunizations are current?: Yes PD ED PE NORMAL - Vitals Vital signs reviewed: Yes - General General: Alert and oriented X 3, No acute distress, Well developed/nourished - HEENT HEENT: PERRL, EOMI - Neck Neck: Supple, no meningeal sign, No adenopathy, Other (no collar on pt. ) - Cardiac Cardiac: RRR, No murmur - Respiratory Respiratory: Clear bilaterally - Abdomen Abdomen: Soft, Non tender - Derm Derm: Normal color, Warm and dry - Extremities Extremities: Normal ROM s pain - Neuro Neuro: Alert and oriented X 3, independent agent music education 2-12 intact, No motor deficit, No sensory deficit, Normal speech Eye Opening: Spontaneous Motor: Obeys Commands Verbal: Oriented GCS Score: 15 Results - Vitals Vitals: Oxygen O2 Source Room air - EKG (time done) 12:38 EKG releavant findings:: EKG personally interpreted by author of this note. Relevant findings are: Rate: Rate (enter#) (86) Rhythm: NSR [place]: Normal Intervals: Normal IN QRS: Normal Ischemia: Normal ST segments. No: ST elevation c/w ischemia, ST depression - Labs Labs: Laboratory Tests 02/01/24 02/01/24 12:15 12:15 WBC 5.5 RBC 5.02 Hgb 14.9 Hct 45.8 MCV 91.2 MCH 29.7 MCHC 32.5 RDW 13.0 Plt Count 276 MPV 10.8 Neut # (Auto) 4.1 Lymph # (Auto) 1.1 L [place] # (Auto) 0.2 Eos # (Auto) 0.1 Baso # (Auto) 0.0 Absolute Nucleated RBC 0.00 Nucleated RBC % 0.0 Sodium 138 Potassium 4.3 Chloride 104 Carbon Dioxide 27 Anion Gap 7.0 BUN 11 Creatinine 0.8 Estimated GFR (MDRD) 71 L Glucose 114 H Calcium 9.7 Magnesium 1.9 Total Bilirubin 0.6 AST 13 ALT 12 Alkaline Phosphatase 64 Total Protein 6.8 Albumin 4.2 Globulin 2.6 Albumin/Globulin Ratio 1.6 Lipase 29 - Rads (name of study) head CT Relevant Findings:: Discussed with rads (no acute findings, no ICH nor CVA. ), EMP independent interpretation of test neck/head CTA Relevant Findings:: Prelim report reviewed (see report - no acute vascular stenoses.) brain MRI Relevant Findings:: Prelim report reviewed (no infarcts, bleeds, nor other acute abnormlaities. ) PD Medical Decision Making - ED course Complexity details: considered differential (sounds mostly like fall and head injury with concussive symptoms. However the pt was noted to maybe have brief face droop for few seconds adn does not remember the fall itself, without good reason for falling. So wanting to ensure no ICH/CVA/other process usch as MS, etc. None identified.), d/w patient Reviewed Lab Results: to get imaging to eval for ICH, tumors, masses, CVA, other processes. Departure - Departure Disposition: 01 Home, Self Care Clinical Impression: Fall from slip, trip, or stumble, Post concussive syndrome Condition: Stable Instructions: ED Concussion Comments: Your symptoms sound likely concussive. We did do scans of your head including CT and MRI and there were no signs of stroke tumors bleeding or other acute problems. I would assume some concussion given your episodes of fogginess and confusion. Most the time your seeming normal. Tylenol or ibuprofen if needed for some pains. Normal activity, diet, medications. Return if needed. Forms: PCP List Discharge Date/Time: 02/01/24 17:27
--- NOTE | 2024-02-01 16:13 | MRI Report ---
PROCEDURE: Brain WO INDICATIONS: confusion intermittent TECHNIQUE: Noncontrast axial T1 spin echo, axial T2 fast spin echo, sagittal and axial FLAIR, coronal T2 fast sp in echo, axial gradient echo, axial diffusion and ADC through the brain. COMPARISON: 09/02/2023. Correlation is made with the accompanying imaging. FINDINGS: Image quality: Motion artifact is noted. CSF Spaces: Basal cisterns are patent. No extra-axial fluid collections. Ventricles are normal in size and shape. Brain: No intracranial masses or hemorrhage. [place]/white matter interface is normal. Brainstem appe ars normal. Diffusion-weighted images demonstrate no acute ischemic insult. No chronic ischemic ins ults. Normal intravascular flow voids are present. Skull and face: Calvarium has normal marrow signal. Orbits appear normal. Sinuses: Sinuses and mastoids are clear. IMPRESSION: No findings of acute or subacute infarction are seen. Motion limited study, without an acute abnormality identified. Reviewed by: Eren Arauz MD on 02/01/2024 3:12 PM [place] Approved by: Eren Arauz MD on 02/01/2024 3:[address] [facility] Station ID: [id number]
[2024-02-01] MEDS: LOSARTAN 50 MG TABLET PO STA (16:33)
[2024-02-01] MEDS: METOPROLOL 5 MG/5 ML VIAL IVP STA (16:33)
[2024-02-01 17:28] VITALS: BP 173/101; O2SAT 98
[2024-02-01] MEDS: IOVERSOL 320 100 ML VIAL IVP ONE (17:50)
== END 2024-02-01 17:27 | disposition home or self-care (01) ==
LOC: EDUNIT# → ED 12:14
DX: S06.0X0A Concussion without loss of consciousness, initial encounter (principal); W01.0XXA Fall on same level from slipping, tripping and stumbling without subsequent striking against object, initial encounter; Y93.K1 Activity, walking an animal; I10 Essential (primary) hypertension; J45.909 Unspecified asthma, uncomplicated; Z86.73 Personal history of transient ischemic attack (TIA), and cerebral infarction without residual deficits; Z79.82 Long term (current) use of aspirin; Z79.02 Long term (current) use of antithrombotics/antiplatelets; Z79.899 Other long term (current) drug therapy
CPT/HCPCS: 36415; 70450; 70496; 70498; 70551; 80053; 83690; 83735; 85025; 93005; 99283; 99284; A9270; Q9967

== ENCOUNTER 2024-06-28 11:50 | Outpatient (CLI) | payer MEDICARE, MEDICAID | END 2024-06-28 23:59 | disposition EMS.NT | LOC: EMS 11:50 | DX: R55 Syncope and collapse (principal) ==

== ENCOUNTER 2024-06-29 14:03 | Outpatient (CLI) | payer MEDICARE, MEDICAID | END 2024-06-29 14:04 | disposition critical access hospital (66) | LOC: EMS 14:03 | DX: R55 Syncope and collapse (principal) | CPT/HCPCS: A0425; A0429 ==

== ENCOUNTER 2024-06-29 14:43 | Emergency (ER) | payer MEDICARE, MEDICAID ==
--- NOTE | 2024-06-29 15:10 | ED Physician Documentation ---
History of Present Illness - Stated complaint Stated Complaint: SYNCOPE - Chief complaint Chief Complaint: Neuro - Additonal information Additional information: Patient is a 68-year-old female presenting to the emergency department after syncopal episode at home. Patient was walking with friends when she fainted she was responsive ANO x 3 when EMS arrived his BLOOD sugar stable and was brought here to emergency department. Patient talking in no acute distress denies any head or neck pain. She was brought in in a c-collar but denies any neck pain from her fall. Patient notes she is not currently taking any of the Plavix or Keppra she has been prescribed. 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: 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 HEENT: Tonsil/Adenoidectomy - Present Medications Home Medications: Ambulatory Orders Medication Instructions Recorded Confirmed Acetaminophen [Tylenol] 325 - 650 mg PO Q6H PRN 09/14/21 09/14/21 Aspirin Chewable [[place]igi 81 mg PO DAILY tablet 09/17/21 Aspirin] Atorvastatin [Lipitor] 40 mg PO QPM 30 Days #30 tablet 09/17/21 Losartan [Cozaar] 50 mg PO DAILY #30 tablet 09/17/21 Metoprolol Succinate [Toprol Xl] 50 mg PO DAILY 30 Days #60 tablet 09/17/21 levETIRAcetam [Keppra] 500 mg PO BID 30 Days #120 tablet 09/17/21 Levetiracetam [Keppra] 500 mg PO BID #60 tablet 01/08/22 Aspirin [Aspirin EC] 81 mg PO DAILY #30 tab 09/02/23 Clopidogrel [Plavix] 75 mg PO DAILY #30 tablet 09/02/23 Aspirin [Aspirin EC] 81 mg PO DAILY #60 tab 10/16/23 Levetiracetam [Keppra] 500 mg PO BID #60 tablet 11/13/23 Losartan [Cozaar] 50 mg PO DAILY 30 Days #30 tablet 11/13/23 Metoprolol Succinate [Toprol Xl] 25 mg PO BID #30 tablet 06/29/24 - Allergies Allergies/Adverse Reactions: Allergies Allergy/AdvReac Type Severity Reaction Status Date / Time No Known Drug Allergies Allergy Verified 06/29/24 14:53 - Social History Does the pt smoke?: No Smoking Status: Never smoker Does the pt drink ETOH?: Yes Does the pt have substance abuse?: No - Immunizations Immunizations are current?: Yes - POLST Patient has POLST: No PD ED PE NORMAL - Vitals Vital signs reviewed: Yes - General General: Alert and oriented X 3 - HEENT HEENT: Atraumatic, PERRL - Neck Neck: Supple, no meningeal sign - Cardiac Cardiac: RRR, No murmur, No gallop, No rub, Strong equal pulses - Respiratory Respiratory: No respiratory distress, Clear bilaterally - Abdomen Abdomen: Normal bowel sounds, Non tender, Non distended - Female Female : Deferred, Pt declined Results - Vitals Vitals: Vital Signs - 24 hr 06/29/24 06/29/24 06/29/24 14:46 16:52 17:39 Temperature 36.8 C Heart Rate 107 H 98 95 Respiratory 20 17 19 Rate Blood Pressure 186/123 H 179/118 H 175/117 H O2 Saturation 98 98 100 06/29/24 06/29/24 06/29/24 18:23 18:26 18:29 Temperature Heart Rate 84 87 94 Respiratory Rate Blood Pressure 173/98 H 178/111 H 171/122 H O2 Saturation Oxygen O2 Source Room air - EKG (time done) 1447 EKG releavant findings:: EKG personally interpreted by author of this note. Relevant findings are: Rate: Rate (enter#) Rhythm: NSR [place]: Normal Intervals: Normal [place] QRS: Normal Ischemia: Normal ST segments Compare to prior EKG: Unchanged from prior EKG Computer interpretation: Agree with computer (\previous \ekg in 02/01/24 no acut change) 1800 EKG releavant findings:: EKG personally interpreted by author of this note. Relevant findings are: Rate: Rate (enter#) Rhythm: NSR [place]: Normal Intervals: Normal [place] QRS: Normal, LVH, Poor R wave progression, Low voltage Ischemia: Normal ST segments Compare to prior EKG: Unchanged from prior EKG Computer interpretation: Agree with computer - Labs Labs: Laboratory Tests 06/29/24 06/29/24 06/29/24 15:09 15:09 15:19 WBC 8.0 RBC 4.88 Hgb 14.4 Hct 44.7 MCV 91.6 MCH 29.5 MCHC 32.2 RDW 12.9 Plt Count 308 MPV 11.0 H Neut # (Auto) 6.4 Lymph # (Auto) 1.1 L [place] # (Auto) 0.5 Eos # (Auto) 0.0 Baso # (Auto) 0.0 Absolute Nucleated RBC 0.00 Nucleated RBC % 0.0 Sodium 139 Potassium 3.7 Chloride 105 Carbon Dioxide 27 Anion Gap 7.0 BUN 20 Creatinine 1.0 Estimated GFR (MDRD) 55 L Glucose 112 H Lactic Acid < 0.2 L Calcium 10.4 H Total Bilirubin 0.8 AST 10 ALT 9 L Alkaline Phosphatase 60 Troponin I High Sens 3.9 Total Protein 7.1 Albumin 4.4 Globulin 2.7 Albumin/Globulin Ratio 1.6 Lipase 23 - Rads (name of study) Chest X-ray Relevant Findings:: EMP independent interpretation of test CT head without contrast Relevant Findings:: EMP independent interpretation of test (No acute intracranial findings no acute changes from previous) PD Medical Decision Making - ED course Complexity details: reviewed old records, reviewed results, re-evaluated patient ED course: Patient is a 12-[id number]ew-year-old female presents to the emergency department from independent living facility. EMS was called after patient was walking with friends and she fell. She does not recall event or how she fell. EMS brought patient in c-collar and she is declining hitting her head though. She denies any pain. She is ANO x 3. Patient in no acute distress. She notes she feels her normal self and was unsure why she fell. Patient notes she has not taking any of her medications at home she is on multiple medications and to including metoprolol and Keppra. She does note she has not picked these up for a few months now. She notes she had a PCP who retired and she has not seen anyone else since then. Vitals on arrival are reassuring. Physical exam shows normal cardiac and lung sounds. Patient's [id number] test intact cranial nerves III through XII intact strength intact in upper and lower extremities stable gait on ambulation. C-spine was cleared and c-collar removed as patient is declining any pain no step-off and no C-spine tenderness. Patient's previous meds included clopidogrel unsure at this time if patient is actually taking this or not will obtain CT scan of head to rule out any intracranial bleeding. Discussed with pharmacy and patient is not taking these medications anymore. She last picked them up in October. CT scan of the head returned negative chest x- ray shows no acute cardiopulmonary findings old shoulder arthroplasty appears in good alignment. Patient's blood pressure has remained elevated here in the emergency department she is given a home dose of her metoprolol that she has not been compliant with. Patient notably significantly tachycardic when she got up and was pacing around the room she was anxious to leave. Repeat EKG obtained when patient calmed down shows normal sinus rhythm no acute changes. Orthostatics obtained showing no significant orthostatic findings. Patient reevaluated she notes she has chronic pain in her left knee and she suspects she was trying to relieve the pain standing on 1 leg and she fell over. Do not suspect syncopal episode and she currently denies any pain at this time she feels safe to go home at this time. Patient instructed to drink lots of fluids watch for any chest pain or shortness of breath or acute pain. Follow-up with PCP in ED. Discussed with patient will give prescription for metoprolol at home given she has been on this previously and stopped taking it after her PCP retired patient is agreeable with this plan. Departure - Departure Disposition: 01 Home, Self Care Clinical Impression: Fall at home, Accident due to mechanical fall without injury Condition: Good Prescriptions: Metoprolol Succinate [Toprol Xl] 25 mg PO BID #30 tablet Forms: PCP List
[2024-06-29 15:20] LABS: BASOPHILS % (AUTO) 0.2 %; HCT - HEMATOCRIT 44.7 % (37.0-47.0); HGB - HEMOGLOBIN 14.4 g/dL (12.0-16.0); LYMPHOCYTES # (AUTO) 1.1 10^3/uL (1.5-3.5); LYMPHOCYTES % (AUTO) 14.1 %; MEAN CORPUSCULAR HEMOGLOBIN 29.5 pg (27.0-31.0); MEAN CORPUSCULAR HGB CONC 32.2 g/dL (32.0-36.0); MEAN CORPUSCULAR VOLUME 91.6 fL (81.0-99.0); MONOCYTES # (AUTO) 0.5 10^3/uL (0.0-1.0); NEUTROPHILS # (AUTO) 6.4 10^3/uL (1.5-6.6); NEUTROPHILS % (AUTO) 79.3 %; PLT - PLATELET COUNT 308 10^3/uL (130-450); RED BLOOD COUNT 4.88 10^6/uL (4.20-5.40); RED CELL DISTRIBUTION WIDTH 12.9 % (12.0-15.0)
[2024-06-29 15:39] LABS: ALBUMIN 4.4 g/dL (3.2-5.5); ALBUMIN/GLOBULIN RATIO 1.6 (1.0-2.2); BILIRUBIN,TOTAL 0.8 mg/dL (0.2-1.0); CALCIUM 10.4 mg/dL (8.5-10.3); POTASSIUM 3.7 mmol/L (3.5-4.5); TOTAL PROTEIN 7.1 g/dL (6.4-8.9)
[2024-06-29 15:44] LABS: TROPONIN I HIGH SENSITIVITY 3.9 ng/L (2.3-14.8)
--- NOTE | 2024-06-29 16:16 | CT Report ---
PROCEDURE: Head WO INDICATIONS: head injury after fall TECHNIQUE: Noncontrast 4.5 mm thick angled axial sections acquired from the foramen magnum to the vertex. For r adiation dose reduction, the following was used: automated exposure control, adjustment of mA and/or kV according to patient size. COMPARISON: 02/01/2024 FINDINGS: Image quality: Excellent. CSF spaces: Basal cisterns are patent. No extra-axial fluid collections. The ventricles are symmet reema in size and shape. Brain: No intracranial bleeds or masses. There is cerebral volume loss for age, with resultant vent ricular and sulcal prominence. There are periventricular and deep white matter chronic small vessel ischemic changes. There is intracranial internal carotid artery atherosclerosis. Skull and face: Calvarium and visualized facial bones appear intact, without suspicious lesions. Sinuses: Visualized sinuses and mastoids are clear. IMPRESSION: 1. No acute intracranial pathology. 2. No significant changes from previous study. Reviewed by: Jacoby Dominguez MD on 06/29/2024 4:15 PM PDT Approved by: Jacoby Dominguez MD on 06/29/2024 4:15 PM PDT Station ID: [id number]
--- NOTE | 2024-06-29 16:17 | XRAY Report ---
PROCEDURE: Chest 1V INDICATIONS: sob, cough TECHNIQUE: One view of the chest was acquired. COMPARISON: 09/03/2023. FINDINGS: Surgical changes and devices: There is prior right shoulder arthroplasty. Shoulder alignment is sienna omic.. Lungs and pleura: No pleural effusions or pneumothorax. Lungs are clear. Mediastinum: Mediastinal contours appear normal. Heart size is normal. Bones and chest wall: No suspicious bony lesions. Overlying soft tissues appear unremarkable. IMPRESSION: No acute cardiopulmonary process. Reviewed by: Jacoby Dominguez MD on 06/29/2024 4:16 PM PDT Approved by: Jacoby Dominguez MD on 06/29/2024 4:16 PM PDT Station ID: [id number]
[2024-06-29] MEDS: METOPROLOL SUCCINATE 50 MG TABLET PO ONE (17:34)
[2024-06-29 17:47] VITALS: O2SAT 100
[2024-06-29] MEDS ORDERED: METOPROLOL SUCCINATE 50 MG TABLET PO SCH (18:00)
[2024-06-29 18:44] VITALS: BP 171/122
== END 2024-06-29 19:00 | disposition home or self-care (01) ==
LOC: EDUNIT# → ED 14:43
DX: R55 Syncope and collapse (principal); W18.39XA Other fall on same level, initial encounter; I10 Essential (primary) hypertension; J45.909 Unspecified asthma, uncomplicated; Z86.73 Personal history of transient ischemic attack (TIA), and cerebral infarction without residual deficits; Z79.02 Long term (current) use of antithrombotics/antiplatelets; Z79.82 Long term (current) use of aspirin; Z79.899 Other long term (current) drug therapy
CPT/HCPCS: 36415; 70450; 71045; 80053; 80177; 83605; 83690; 84484; 85025; 93005; 99284; A9270

== ENCOUNTER 2024-08-04 18:33 | Outpatient (CLI) | payer MEDICARE, MEDICAID | END 2024-08-04 23:59 | disposition left against medical advice (07) | LOC: EMS 18:33 | DX: F10.90 Alcohol use, unspecified, uncomplicated (principal); I10 Essential (primary) hypertension ==

== ENCOUNTER 2024-08-21 09:37 | Outpatient (CLI) | payer MEDICARE, MEDICAID | END 2024-08-21 23:59 | disposition critical access hospital (66) | LOC: EMS 09:37 | DX: M25.562 Pain in left knee (principal); M25.572 Pain in left ankle and joints of left foot; S01.81XA Laceration without foreign body of other part of head, initial encounter; X31.XXXA Exposure to excessive natural cold, initial encounter; W15.XXXA Fall from cliff, initial encounter; Y93.39 Activity, other involving climbing, rappelling and jumping off; Y92.832 Beach as the place of occurrence of the external cause | CPT/HCPCS: A0425; A0429 ==

== ENCOUNTER 2024-08-21 10:14 | Observation (INO) | payer MEDICARE, MEDICAID ==
--- NOTE | 2024-08-21 10:29 | ED Physician Documentation ---
PD HPI Fall - Stated complaint Stated Complaint: FALL DOWN BLUFF - History obtained from History obtained from: Patient - History of Present Illness Mechanism of injury: Slipped, Lost balance Fall distance: Standing position, Greater than 20ft, Other Where injury occurred: Other ([facility] 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 HEENT: Tonsil/Adenoidectomy - Present Medications Home Medications: Ambulatory Orders Medication Instructions Recorded Confirmed No Known Home Medications 08/21/24 08/21/24 - Allergies Allergies/Adverse Reactions: Allergies Allergy/AdvReac Type Severity Reaction Status Date / Time No Known Drug Allergies Allergy Verified 08/21/24 10:36 - Social History Does the pt smoke?: No Smoking Status: Never smoker Does the pt drink ETOH?: Yes Does the pt have substance abuse?: No - Immunizations Immunizations are current?: Yes - POLST Patient has POLST: No PD ED PE NORMAL - Vitals Vital signs reviewed: Yes - General General: Alert and oriented X 3, Well developed/nourished - HEENT HEENT: Other (dried blood and tenderness in ociput. Unalbe to see scalp initially. Will clean area. Seems abrasion/small lac initial iprossion but need better view. ) - Neck Neck: Supple, no meningeal sign, No adenopathy, Other (tender in mid cervical area without deformity. ). No: C-Spine cleared by NEXUS criteria (cleared by CT scan) - Cardiac Cardiac: RRR, No murmur - Respiratory Respiratory: No respiratory distress, Clear bilaterally - Abdomen Abdomen: Soft, Non tender - Back Back: No spinal TTP - Derm Derm: Normal color. No: Warm and dry (dry skin but feels cold to touch. Core temp is 36.6 though. ) - Extremities Extremities: Other (multiple brusies on left mainly, whole of legs and thigh, with large purple bruising left lateral hip/trochanter area. Arms with bruising diffusely as well. ) - Neuro Neuro: Alert and oriented X 3, No motor deficit, No sensory deficit, Normal speech Results - Vitals Vitals: Vital Signs - 24 hr 08/21/24 08/21/24 08/21/24 10:12 10:49 11:10 Temperature 36.6 C Heart Rate 100 104 H 105 H Respiratory 16 20 18 Rate Blood Pressure 140/85 H 152/100 H 156/103 H O2 Saturation 98 98 98 08/21/24 08/21/24 11:54 12:30 Temperature Heart Rate 105 H 106 H Respiratory Rate Blood Pressure 156/105 H 171/115 H O2 Saturation 100 99 Oxygen O2 Source Room air - Labs Labs: Laboratory Tests 08/21/24 08/21/24 08/21/24 10:25 10:25 10:25 WBC 21.0 H RBC 5.03 Hgb 15.0 Hct 45.5 MCV 90.5 MCH 29.8 MCHC 33.0 RDW 12.9 Plt Count 362 MPV 10.9 H Neut # (Auto) 18.5 H Lymph # (Auto) 0.[address] [place] # (Auto) 1.4 H Eos # (Auto) 0.0 Baso # (Auto) 0.1 Absolute Nucleated RBC 0.00 Nucleated RBC % 0.0 Manual Slide Review Indicated RBC Morph Micro Appear 1+ ANISOCYTOSIS PT INR APTT Sodium 131 L Potassium 4.8 H Chloride 98 L Carbon Dioxide 19 L Anion Gap 14.0 H BUN 24 H Creatinine 1.1 Estimated GFR (MDRD) 49 L Glucose 119 H POC Whole Bld Glucose Lactic Acid 3.2 H* Calcium 10.1 Magnesium 1.9 Total Bilirubin 1.6 H AST 87 H ALT 36 Alkaline Phosphatase 75 Total Creatine Kinase 4473 H* Total Protein 6.8 Albumin 4.3 Globulin 2.5 Albumin/Globulin Ratio 1.7 Lipase 21 08/21/24 08/21/24 10:25 11:15 WBC RBC Hgb Hct MCV MCH MCHC RDW Plt Count MPV Neut # (Auto) Lymph # (Auto) [place] # (Auto) Eos # (Auto) Baso # (Auto) Absolute Nucleated RBC Nucleated RBC % Manual Slide Review RBC Morph Micro Appear PT 12.3 INR 1.1 APTT 34.3 H Sodium Potassium Chloride Carbon Dioxide Anion Gap BUN Creatinine Estimated GFR (MDRD) Glucose POC Whole Bld Glucose 97 Lactic Acid Calcium Magnesium Total Bilirubin AST ALT Alkaline Phosphatase Total Creatine Kinase Total Protein Albumin Globulin Albumin/Globulin Ratio Lipase - Rads (name of study) hip and knees Relevant Findings:: Prelim report reviewed (no fractures), EMP independent interpretation of test head CT Relevant Findings:: Prelim report reviewed, EMP independent interpretation of test (no ICH) cervical spineCT Relevant Findings:: Prelim report reviewed (no fractures. ) chest/abd/pelvis CT Relevant Findings:: Prelim report reviewed (consider current old fxs at right 5th rib area but pt not tender there at all.), EMP independent interpretation of test PD Medical Decision Making - ED course Complexity details: reviewed results (no abnormalities on CT head, neck, trunk. Xrays of left hip and knees. Has multiple bruises and tender soft tissue areas. She has some abrasion/lac occiput. ), considered differential (pt was trapped on beach with tide coming in and tried to climb up bluff, got up toward top and then fell down about 30 feet. Stayed laying for awhile. Got to resting/sitting. Spent the ight and discovered this morning. She has any bruises on extremities. Scalp lac occiput. ), d/w patient Reviewed Lab Results: elevated CK over 4400, with some level of renalinsuffience. With her getting hydrated and warming skin to normal temperation, I would believe it is going to worsen with rasonable risk of affecting renal function. Cerical collar removed with CT imiaging showing no fractures. Departure - Departure Disposition: ED Place in Observation Clinical Impression: Injury resulting from fall from height, Multiple contusions, Rhabdomyolysis, Dehydration, Head contusion Condition: Stable Record reviewed to determine appropriate education?: Yes Discharge Date/Time: 08/21/24 14:22
[2024-08-21 10:35] LABS: BASOPHILS # (AUTO) 0.1 10^3/uL (0.0-0.1); BASOPHILS % (AUTO) 0.3 %; HCT - HEMATOCRIT 45.5 % (37.0-47.0); LYMPHOCYTES # (AUTO) 0.9 10^3/uL (1.5-3.5); LYMPHOCYTES % (AUTO) 4.5 %; MEAN CORPUSCULAR HEMOGLOBIN 29.8 pg (27.0-31.0); MEAN CORPUSCULAR VOLUME 90.5 fL (81.0-99.0); MEAN PLATELET VOLUME 10.9 fL (7.9-10.8); MONOCYTES # (AUTO) 1.4 10^3/uL (0.0-1.0); MONOCYTES % (AUTO) 6.7 %; NEUTROPHILS # (AUTO) 18.5 10^3/uL (1.5-6.6); NEUTROPHILS % (AUTO) 87.9 %; PLT - PLATELET COUNT 362 10^3/uL (130-450); RED BLOOD COUNT 5.03 10^6/uL (4.20-5.40); RED CELL DISTRIBUTION WIDTH 12.9 % (12.0-15.0)
[2024-08-21 10:39] LABS: SLIDE REVIEW? Indicated
[2024-08-21 10:40] LABS: PARTIAL THROMBOPLASTIN TIME 34.3 secs (24.9-33.3)
[2024-08-21 10:45] LABS: INR 1.1 (0.8-1.2); PT - PROTHROMBIN TIME 12.3 secs (9.9-12.6)
[2024-08-21 10:49] LABS: ALBUMIN 4.3 g/dL (3.2-5.5); ALBUMIN/GLOBULIN RATIO 1.7 (1.0-2.2); BILIRUBIN,TOTAL 1.6 mg/dL (0.2-1.0); CALCIUM 10.1 mg/dL (8.5-10.3); CREATININE 1.1 mg/dL (0.6-1.3); MAGNESIUM 1.9 mg/dL (1.7-2.3); POTASSIUM 4.8 mmol/L (3.5-4.5); TOTAL PROTEIN 6.8 g/dL (6.4-8.9)
[2024-08-21 10:51] LABS: RBC MORPHOLOGY (MULTIPLE) 1+ ANISOCYTOSIS (NORMAL)
[2024-08-21] MEDS: SODIUM CHLORIDE 0.9% 1,000 ML IV STA ×2 (11:09→11:10)
[2024-08-21] MEDS ORDERED: iohexoL-300 100 ML VIAL ONE (11:10)
--- NOTE | 2024-08-21 11:26 | XRAY Report ---
PROCEDURE: Knee 3V BL INDICATIONS: fall 30 ft down bluff TECHNIQUE: 3 views of the bilateral knee(s) were acquired. COMPARISON: None. FINDINGS: Bones: No fractures or dislocations. No suspicious bony lesions. Soft tissues: No knee joint effusion. No suspicious soft tissue calcifications or masses. IMPRESSION: No acute bony abnormality, bilateral knees. Reviewed by: Froy Yu MD on 08/21/2024 11:24 AM PDT Approved by: Froy Yu MD on 08/21/2024 11:24 AM PDT Station ID: [id number]
--- NOTE | 2024-08-21 11:27 | XRAY Report ---
PROCEDURE: Hip w/Pelvis 2-3V LT INDICATIONS: fall 30 ft down bluff TECHNIQUE: An AP view of the pelvis and a crosstable lateral view of the hip were acquired. COMPARISON: None. FINDINGS: Bones: No fractures or dislocations. No suspicious bony lesions. Soft tissues: No suspicious soft tissue calcifications or masses. IMPRESSION: No acute bony abnormality. If continue to clinically suspect fracture, consider CT. Reviewed by: Froy Yu MD on 08/21/2024 11:26 AM PDT Approved by: Froy Yu MD on 08/21/2024 11:26 AM PDT Station ID: [id number]
--- NOTE | 2024-08-21 11:56 | CT Report ---
PROCEDURE: Head WO INDICATIONS: fall 30 ft down bluff, struck head TECHNIQUE: Noncontrast 4.5 mm thick angled axial sections acquired from the foramen magnum to the vertex. For r adiation dose reduction, the following was used: automated exposure control, adjustment of mA and/or kV according to patient size. COMPARISON: 06/29/2024. FINDINGS: Image quality: Excellent. CSF spaces: Basal cisterns are patent. No extra-axial fluid collections. Ventricles are normal in size and shape. Brain: No midline shift. No intracranial masses or hemorrhage. Weiner-white matter interface is norm al. There is intracranial carotid calcification. Brain parenchyma is normal in appearance for patien t age. Skull and face: Calvarium and visualized facial bones are intact, without suspicious lesions. Sinuses: Visualized sinuses and mastoids are clear. IMPRESSION: No acute intracranial pathology. Reviewed by: Froy Yu MD on 08/21/2024 11:54 AM PDT Approved by: Froy Yu MD on 08/21/2024 11:54 AM PDT Station ID: [id number]
--- NOTE | 2024-08-21 11:57 | CT Report ---
PROCEDURE: Cervical Spine WO INDICATIONS: fall 30 ft down [place]uff TECHNIQUE: Noncontrast 3 mm thick sections acquired from the skull base to the T4 level. Sagittal and coronal r eformats were then constructed. For radiation dose reduction, the following was used: automated exp osure control, adjustment of mA and/or kV according to patient size. COMPARISON: None. FINDINGS: Image quality: Excellent. Bones: No fractures or dislocations. Visualized superior ribs are intact. Cervical spondylosis. Mu ltilevel posterior disc osteophyte complex. Mild canal stenosis. Bilateral bony foraminal narrowing a t C3-C4. Soft tissues: Prevertebral soft tissues are normal in thickness. No paravertebral hematomas. No ap ical pneumothoraces. IMPRESSION: 1. No acute cervical fracture or dislocation. 2. Cervical spondylosis. Reviewed by: Froy Yu MD on 08/21/2024 11:56 AM PDT Approved by: Froy Yu MD on 08/21/2024 11:56 AM PDT Station ID: [id number]
--- NOTE | 2024-08-21 12:06 | CT Report ---
PROCEDURE: Chest W INDICATIONS: fall with anterior chest/abd pain CONTRAST: 100ml [id number] TECHNIQUE: After the administration of intravenous contrast, a CT scan of the chest was performed. Images were recorded and evaluated at appropriate window settings. Reformats: axial MIP of the chest, coronal and sagittal. For radiation dose reduction, the following was used: automated exposure control, adjustme nt of mA and/or kV according to patient size. COMPARISON: CT of the abdomen and pelvis from today. FINDINGS: Image quality: Diagnostic. Chest wall and lower neck: No thyroid nodule which requires sonographic follow up. No breast mass. No axillary or supraclavicular adenopathy by size. Lungs and pleura: No consolidation. No pleural effusions. No pneumothorax. No suspicious pulmonary n odules which require follow up. Mediastinum: Heart size is normal. No pericardial effusion. No large vessel abnormality. No mediastin al adenopathy by size criteria. Bones: Question subtle anterior fractures of the right third, fourth, and fifth ribs. This is not def inite. There is subtle deformity at the most anterior aspect of these ribs, consistent with probable fracture of uncertain chronicity. Total right shoulder arthroplasty. No sternal fracture. Upper Abdomen: Prominent hemangioma of the liver IMPRESSION: 1. Subtle deformity of the anterior right third, fourth, and fifth ribs, consistent with fractures of uncertain chronicity. Recommend correlation for presence or absence of point tenderness. 2. No other significant sequelae of acute trauma in the chest. 3. Prominent liver hemangioma. Please refer to separate report for findings in the abdomen and pelvis from today. Reviewed by: Froy Yu MD on 08/21/2024 12:05 PM PDT Approved by: Froy Yu MD on 08/21/2024 12:05 PM PDT Station ID: [id number]
[2024-08-21] MEDS: HYDROmorphone 1 MG/ML CARPUJECT IVP STA (12:14)
--- NOTE | 2024-08-21 12:38 | CT Report ---
PROCEDURE: Abdomen/Pelvis W INDICATIONS: fall 30 ft down [place]uff CONTRAST: 100ml [id number] TECHNIQUE: After the administration of intravenous contrast, a CT scan of the abdomen and pelvis was performed. Images were recorded and evaluated at appropriate window settings. Reformats: coronal and sagittal. F or radiation dose reduction, the following was used: automated exposure control, adjustment of mA and /or kV according to patient size. COMPARISON: CT chest from the same day FINDINGS: Image quality: Diagnostic. Lower chest: Unremarkable. Liver: No solid mass. 3.1 cm right lobe hemangioma.. Gallbladder: Surgically absent. Biliary tree: No intrahepatic or extrahepatic dilation, accounting for age. Spleen: No splenomegaly. Pancreas: No pancreatic ductal dilation. Adrenals: No adrenal nodule. Kidneys and ureters: Small, shrunken right kidney. Normal appearing left kidney. No traumatic injury to the kidneys noted. Stomach, bowel and peritoneum: No gastric or small bowel dilation. No abnormal wall thickening. No pa thologic free fluid. Lymph nodes: No central or retroperitoneal adenopathy. Vessels: No infrarenal aortic aneurysm. Patent portal vein. PELVIS Reproductive organs: Uterus is surgically absent. No adnexal masses.. Bladder: No abnormal wall thickening, accounting for underdistention. Pelvic lymph nodes: No pelvic adenopathy by size criteria. Bones: No aggressive osseous abnormality. Chronic compressions of T9, T11, and T12. No acute compress ions. Degenerative change. Bilateral L5 pars defects. Trace anterolisthesis of L4 on L5 and L5 on S1. Right L4-L5 and L5-S1 foraminal narrowing with a degree of foraminal nerve root impingement. Other: No significant ventral or inguinal hernia. IMPRESSION: 1. No significant sequelae of acute trauma in the abdomen and pelvis. 2. 3.1 cm right lobe liver hemangioma. 3. Small, shrunken right kidney. 4. Remote cholecystectomy and hysterectomy. 5. Old compression fractures. No acute compression fractures. 6. Lumbar degenerative change. Bilateral L5 pars defects. Some degree of right foraminal nerve root i mpingement at L4-L5 and L5-S1, a chronic finding Reviewed by: Froy Yu MD on 08/21/2024 12:37 PM PDT Approved by: Froy Yu MD on 08/21/2024 12:37 PM PDT Station ID: [id number]
[2024-08-21] MEDS: KETOROLAC 15 MG/ML VIAL IVP STA ×2 (12:42→12:43)
[2024-08-21] MEDS ORDERED: SODIUM CHLORIDE FLUSH 0.9% 10 ML SYRINGE IVP PRN (13:20)
[2024-08-21] MEDS ORDERED: ONDANSETRON 4 MG/2 ML VIAL IVP PRN (13:20)
--- NOTE | 2024-08-21 13:41 | HISTORY & PHYSICAL EXAMINATION ---
Chief Complaint - Chief Complaint Chief Complaint: AMS History of Present Illness - Admitted From Admitted From:: ED - History Obtained From Records Reviewed: none available. History obtained from: patient, ED MD Exam Limitations: patient has altered mental status - History of Present Illness HPI Comment/Other: 68-year-old female who reports that she went out to lunch yesterday afternoon, about 24 hours ago. She took a walk after lunch but is unable to tell me exactly what happened after that. She was found this morning on the beach in [place] having likely fallen down the bluff. She knows the year and the month who she is and where she is but she is very fuzzy about the details of what happened yesterday afternoon. She lives alone with her dog in the senior apartments in [place]. She states that she has no past medical history and that she is not supposed to take any medicines. She says she has had some orthopedic surgeries including shoulder surgery in 2005, a right shoulder replacement. 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 She states her maternal grandmother had a history of myocardial infarction and multiple strokes. Living arrangement: At home Living Situation: Alone Social History Notes: She lives at home alone. She is a non-smoker. She rarely drinks alcohol and denies illicit drug use. - Substance History Use: Uses substance without health or social issues: NONE - POLST Patient has POLST: No POLST Status: Full Code Meds/Allgy - Home Medications Home Medications: Ambulatory Orders Medication Instructions Recorded Confirmed No Known Home Medications 08/21/24 08/21/24 - Allergies Allergies/Adverse Reactions: Allergies Allergy/AdvReac Type Severity Reaction Status Date / Time No Known Drug Allergies Allergy Verified 08/21/24 10:36 Review of Systems - Constitutional Constitutional: reports: Fatigue, Weakness - Eyes Eyes: denies: Pain, Field loss, Dipolpia - Ears, Nose & Throat Ears, Nose & Throat: denies: Ear pain, Tinnitus - Cardiovascular Cariovascular: reports: Chest pain (mild pain, states no worse that her right chest pain at baseline). denies: Irregular heart rate, Palpitations - Respiratory Respiratory: denies: Cough, Sputum production - Gastrointestinal Gastrointestinal: denies: Abdominal pain - Genitourinary Genitourinary: denies: Dysuria - Musculoskeletal Musculoskeletal: reports: Other (generalized pain and weakness) - Integumentary Integumentary: reports: Other (bruises and scratches) - Neurological Neurological: denies: General weakness, Focal weakness - Psychiatric Psychiatric: denies: Depression - Hematologic/Lymphatic Hematologic/Lymphatic: denies: Anemia - All Other Systems All Other Systems: reports: Reviewed and negative Prior Level of Functionality: independent without assistive devices. Exam - Vital Signs Reviewed Vital Signs: Yes Vital Signs: Vital Signs x48h Temp Pulse Resp BP Pulse Ox 08/21/24 12:30 106 H 171/115 H 99 08/21/24 11:54 105 H 156/105 H 100 08/21/24 11:10 105 H 18 156/103 H 98 08/21/24 10:49 104 H 20 152/100 H 98 08/21/24 10:12 36.6 C 100 16 140/85 H 98 - Physical Exam General Appearance: positive: No acute distress, Alert Eyes Bilateral: positive: Normal inspection ENT: positive: Dry mucous membranes, Other (facial abrasions) Respiratory: positive: No respiratory distress, Breath sounds nml, Other (mild right anterior chest tenderness) Cardiovascular: positive: Tachycardia Abdomen: positive: Non-tender, No distention Back: positive: Nml inspection Skin: positive: Other (diffuse patchy ecchymoses and abrasions) Extremities: positive: Other (lower extremities below the knees with abrasions and bruising) Neurologic/Psychiatric: positive: Disoriented to time (disoriented w abnormal speech patterns. does not know what day it is. perserverative.) Sepsis Event Note (H) - Evaluation Current Stage of Sepsis: Ruled out Conclusion/Plan - Problem List (1) Altered mental status Conclusion/Plan: Acute metabolic encephalopathy with mild hemodynamic instability shown in her tachycardia. Clinically she appears dehydrated and her mental status does not appear completely normal to me. I do not have a baseline to compare to. She states that she would like to be full code. She has no family locally she states that her surrogate medical decision-maker would be her brother in [place].She tells me that she does not have contact information for her brother here at the hospital. I will monitor her vital signs and tachycardia. I will provide IV and p.o. hydration. I will monitor her labs. Qualifiers: Altered mental status type: unspecified Qualified Code(s): R41.82 - Altered mental status, unspecified (2) Rhabdomyolysis Conclusion/Plan: Laboratory Tests 08/21/24 08/21/24 10:25 10:25 Potassium 4.8 H Creatinine 1.1 Lactic Acid 3.2 H* Total Creatine Kinase 4473 H* Lactic acid may be artificially elevated, in my discussion with surgery, discovered was drawn with tourniquet in place, will repeat this. I am repeating BMP to check potassium and Cr this afternoon, as well as CK this afternoon. (3) Dehydration Conclusion/Plan: She was out in the elements overnight. She has not had anything to eat or drink for 24 hours. She shows evidence of dehydration on her laboratory findings with mild elevation in her creatinine and her potassium. I will give her IV and p.o. fluids. I will monitor her laboratory studies. (7) Hypertension Conclusion/Plan: She reports being on no medications. It has been 7 years since she has had a PCP. She is hypertensive here despite her dehydrated status. She may require antihypertensives. At this point her systolic blood pressure is not over 160 so I will continue to observe. Selected Entries 08/21/24 08/21/24 14:28 14:30 Blood Pressure 156/105 H 152/95 H [Right] Qualifiers: Hypertension type: unspecified Qualified Code(s): I10 - Essential (primary) hypertension - Lab Results Fish Bones: 08/21/24 10:25 08/21/24 10:25 Core Measures - Anticipated LOS I expect patient to be DC'd or transferred within 96 hours.: Yes - Issues Hospital Issues and Management Plan: Dehydration, rhabdomyolysis potential acute kidney injury. - DVT/VTE - Prophylaxis VTE/DVT Device ordered at admit?: Yes VTE/DVT Prophylaxis med ordered at admit?: Yes
--- NOTE | 2024-08-21 15:03 | CONSULTATION NOTE ---
Referring Provider Name of Referring Provider:: ED (Billy) Consult Date: 08/21/24 Chief Complaint - Chief Complaint Chief Complaint: s/p fall down embankment History of Present Illness - Admitted From Admitted From:: ED - History Obtained From Records Reviewed: yes History obtained from: patient, EMS Exam Limitations: patient s/p trauma, did not sleep last night - History of Present Illness HPI Comment/Other: Patient reports she was in her normal state of health yesterday afternoon. She went out and had a salad and 3 glasses of wine. She then went for a walk on the beach and at some point, fell down an embankment. She was unable to get back up the embankment but was able to stand after falling. She was unable to get help overnight, but was found and rescued this morning. She complains of a slight headache and discomfort in her left hip. She denies losing consciousness. History - Past Medical History Cardiovascular: reports: Hypertension Respiratory: reports: Asthma Neuro: reports: CVA Endocrine/Autoimmune: reports: None GI: reports: None : reports: None HEENT: reports: None Psych: reports: None Derm: reports: None MRSA Hx?: Yes Other Past Medical History: At the time of my exam, the patient denies any significant past medical history's, current medications. - Past Surgical History General: reports: Cholecystectomy (Seen on imaging, not endorsed by patient) Ortho: reports: Shoulder arthroplasty /[employer]: reports: 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 HEENT: reports: Tonsil/Adenoidectomy - Family & Social History Family History: Mother: , Father: Family History Comment/Other: She reports her mother in 2018 from breast cancer. She states her maternal grandmother had a history of myocardial infarction and multiple strokes. Living arrangement: At home Living Situation: Alone (with pet dog) Social History Notes: She lives at home alone. She is a non-smoker. She drinks 1-2 glasses of wine per week. Denies drug use. - Substance History Use: Uses substance without health or social issues: NONE - POLST Patient has POLST: No POLST Status: Full Code Meds/Allgy - Home Medications Home Medications: Ambulatory Orders Medication Instructions Recorded Confirmed Acetaminophen [Tylenol] 325 - 650 mg PO Q6H PRN 09/14/21 09/14/21 Aspirin Chewable [[place]igi 81 mg PO DAILY tablet 09/17/21 Aspirin] Atorvastatin [Lipitor] 40 mg PO QPM 30 Days #30 tablet 09/17/21 Losartan [Cozaar] 50 mg PO DAILY #30 tablet 09/17/21 Metoprolol Succinate [Toprol Xl] 50 mg PO DAILY 30 Days #60 tablet 09/17/21 levETIRAcetam [Keppra] 500 mg PO BID 30 Days #120 tablet 09/17/21 Levetiracetam [Keppra] 500 mg PO BID #60 tablet 01/08/22 Aspirin [Aspirin EC] 81 mg PO DAILY #30 tab 09/02/23 Clopidogrel [Plavix] 75 mg PO DAILY #30 tablet 09/02/23 Aspirin [Aspirin EC] 81 mg PO DAILY #60 tab 10/16/23 Levetiracetam [Keppra] 500 mg PO BID #60 tablet 11/13/23 Losartan [Cozaar] 50 mg PO DAILY 30 Days #30 tablet 11/13/23 Metoprolol Succinate [Toprol Xl] 25 mg PO BID #30 tablet 06/29/24 - Allergies Allergies/Adverse Reactions: Allergies Allergy/AdvReac Type Severity Reaction Status Date / Time No Known Drug Allergies Allergy Verified 08/21/24 10:36 Review of Systems - Constitutional Constitutional: reports: Other (A complete 10 point review of symptoms is otherwise negative except for that noted in HPI and PMH.) Exam - Vital Signs Vital Signs: Vital Signs x48h Temp Pulse Pulse Resp BP BP Pulse Ox 08/21/24 14:30 152/95 H 08/21/24 14:28 36.4 C L 107 H 156/105 H 08/21/24 12:30 106 H 171/115 H 99 08/21/24 11:54 105 H 156/105 H 100 08/21/24 11:10 105 H 18 156/103 H 98 08/21/24 10:49 104 H 20 152/100 H 98 08/21/24 10:12 36.6 C 100 16 140/85 H 98 - Physical Exam Comments/Other: GEN: No acute distress, appears stated age, alert and oriented HEENT: Normocephalic head with matted, dried blood on posterior aspect of the scalp, no obvious laceration identified, dry mucous membranes, EOMI, pupils are equal, round, reactive to light and accommodation. Bilateral ears with her cerumen impacted, but no blood. Bilateral nares are clear. NEURO: GCS 15, CN II-XII grossly intact, no obvious focal deficits. Back and neck without midline tenderness or step-offs.C-collar in place CV: RRR, no murmer appreciated PULM: CTAB, no wheezes appreciated, no tenderness to palpation along the chest wall, nonlabored breathing ABD: soft, non tender, no rebound or guarding CIRCULATORY: no clubbing, cyanosis, or edema SKIN: Multiple bruises on trunk, all extremities. Most notable bruising is on the left hip and upper leg. There are no open wounds. LYMPH: no obvious lymphadenopathy MSK: 4/4 strength in all extremities, motor and sensation intact throughout, 2+ pulses in all extremities PSYCH: Affect is appropriate, though patient does appear tired Conclusion and Plan - Lab Results Laboratory Results 08/21/24 11:15: POC Whole Bld Glucose 97 08/21/24 10:25: PT 12.3, INR 1.1, APTT 34.3 H 08/21/24 10:25: Lactic Acid 3.2 H* 08/21/24 10:25: Sodium 131 L, Potassium 4.8 H, Chloride 98 L, Carbon Dioxide 19 L, Anion Gap 14.0 H, BUN 24 H, Creatinine 1.1, Estimated GFR (MDRD) 49 L, Glucose 119 H, Calcium 10.1, Magnesium 1.9, Total Bilirubin 1.6 H, AST 87 H, ALT 36, Alkaline Phosphatase 75, Total Creatine Kinase 4473 H*, Total Protein 6.8, Albumin 4.3, Globulin 2.5, Albumin/Globulin Ratio 1.7, Lipase 21 08/21/24 10:25: WBC 21.0 H, RBC 5.03, Hgb 15.0, Hct 45.5, MCV 90.5, MCH 29.8, MCHC 33.0, RDW 12.9, Plt Count 362, MPV 10.9 H, Neut # (Auto) 18.5 H, Lymph # (Auto) 0.9 L, [place] # (Auto) 1.4 H, Eos # (Auto) 0.0, Baso # (Auto) 0.1, Absolute Nucleated RBC 0.00, Nucleated RBC % 0.0, Manual Slide Review Indicated, RBC Morph Micro Appear 1+ ANISOCYTOSIS - Diagnostic Imaging Results Diagnostic Imaging Results: positive: Final report reviewed, Read independently Diagnostic Imaging Results Comments: CT abdomen/pelvis 1. No significant sequelae of acute trauma in the abdomen and pelvis. 2. 3.1 cm right lobe liver hemangioma. 3. Small, shrunken right kidney. 4. Remote cholecystectomy and hysterectomy. 5. Old compression fractures. No acute compression fractures. 6. Lumbar degenerative change. Bilateral L5 pars defects. Some degree of right foraminal nerve root impingement at L4-L5 and L5-S1, a chronic finding CT chest No acute findings, possible old rib fx CT c spine No acute findings CT head No acute findings XR L hip, B knees No acute fx - Consultation Note Consultation Note: This is a 68 y/o F s/p fall from 30 ft embankment, exposure for approx 12 hours. 1. left hip pain - no acute fx - consider PT eval if patient not ambulating at baseline once she's had some rest 2. Dehydration, elevated EK, lactate - lactate may be artificially high as tourniquet was used - expect leukocytosis is stress response - likely dehydration given length of exposure - mild rhabdomyolysis given injury, prolonged exposure 3. chronic medical problems - patient states she takes no home meds, but some old meds in chart - as per primary team recommendations. I will perform tertiary trauma exam in AM, given mechanism of injury. Thank you for consulting surgery in the care of this patient.
--- NOTE | 2024-08-21 15:08 | PHARMACY PROGRESS NOTE ---
- Best Possible Medication History Admit Date and Time: 08/21/24 1320 Processed by: Pharmacy Medications reviewed in ED?: No Medication History completed: Yes Patient Interview: Pt unable to participate Secondary Source(s): Pharmacy records, Insurance records (PT HAS NO MEMORY OF ANY MEDICATIONS SHE IS SUPPOSED TO BE TAKING AND NO INSURANCE RECORDS SHOWING ANY RECENT FILLS.) As the person ultimately responsible for medication therapy, providers are able to order a medication from an existing home medication list in [facility] via the "Reconcile Routine" prior to Confirmation of that medication by business support coordinator. Such practice is discouraged except when the physician, in their clinical judgment, deems that a medical need exists for a medication without regard to previous use.
[2024-08-21] MEDS: SODIUM CHLORIDE 0.9% 1,000 ML IV SCH (15:25)
[2024-08-21] MEDS: iohexoL-300 100 ML VIAL IVP ONE (16:47)
[2024-08-21 17:10] LABS: CALCIUM 8.8 mg/dL (8.5-10.3); CREATININE 0.9 mg/dL (0.6-1.3); POTASSIUM 3.8 mmol/L (3.5-4.5)
[2024-08-21] MEDS: oxyCODONE 5 MG TABLET PO PRN (19:50)
[2024-08-21] MEDS: SODIUM CHLORIDE FLUSH 0.9% 10 ML SYRINGE IVP SCH (19:52)
[2024-08-21] MEDS: HEPARIN 5,000 UNIT/ML VIAL SUBQ SCH (20:52)
[2024-08-22 05:13] LABS: BASOPHILS % (AUTO) 0.3 %; EOSINOPHILS % (AUTO) 0.2 %; HCT - HEMATOCRIT 34.3 % (37.0-47.0); HGB - HEMOGLOBIN 11.1 g/dL (12.0-16.0); LYMPHOCYTES # (AUTO) 1.3 10^3/uL (1.5-3.5); LYMPHOCYTES % (AUTO) 11.8 %; MEAN CORPUSCULAR HEMOGLOBIN 29.5 pg (27.0-31.0); MEAN CORPUSCULAR HGB CONC 32.4 g/dL (32.0-36.0); MEAN CORPUSCULAR VOLUME 91.2 fL (81.0-99.0); MEAN PLATELET VOLUME 11.1 fL (7.9-10.8); MONOCYTES # (AUTO) 0.7 10^3/uL (0.0-1.0); NEUTROPHILS % (AUTO) 81.2 %; PLT - PLATELET COUNT 238 10^3/uL (130-450); RED BLOOD COUNT 3.76 10^6/uL (4.20-5.40); RED CELL DISTRIBUTION WIDTH 13.3 % (12.0-15.0); WHITE BLOOD COUNT 11.1 x10^3/uL (4.8-10.8)
[2024-08-22 05:30] LABS: CALCIUM 8.5 mg/dL (8.5-10.3); CREATININE 0.8 mg/dL (0.6-1.3); POTASSIUM 3.6 mmol/L (3.5-4.5)
[2024-08-22] MEDS: ACETAMINOPHEN 325 MG TABLET PO PRN (06:45)
[2024-08-22 11:39] VITALS: O2SAT 98
--- NOTE | 2024-08-22 12:08 | Discharge Plan ---
Discharge Plan Problem Reviewed?: Yes Disposition: 06 Home Health Service Condition: Good Prescriptions: Benzonatate [Tessalon] 100 mg PO TID PRN #30 cap PRN Reason: Cough Diet: Regular Activity Restrictions: No Restrictions Shower Restrictions: No Driving Restrictions: Yes (does not drive) Assistance Devices: Wheelchair Weight Bearing: Full Weight Instruction Topics: Wound Care, ED Abrasion Health Concerns: You came into the hospital after spending the night on the beach. It appears that you had a fall down the embankment. We are actually very unclear about the details of how you wound up where you were. In any event when you came into the hospital you had a lot of bruises and abrasions. Additionally your body was very stressed from the exposure overnight and you had evidence of toxins accumulating in your body due to the stress. Today everything looks much better. I recognize that you are sore and bruised. You can heal from this at home. I would recommend that you take [id number] Tylenol as needed for discomfort. I am also prescribing some Tessalon for your chronic cough. When you go home make sure to drink plenty of fluids. We will send home health care to make sure that you stay stable and safe at home. Avoid drinking alcohol. Plan of Treatment: It would be a good idea for you to take a shower every day and wash your hair until this abrasion heals. We will have home health coming in to help make sure you are safe at home and that you continue to recover well. Would like to get you set up with a primary care provider. [place] Follow-Up Care: Home Health - PT, Home Health - OT No Smoking: If you smoke, Please STOP! Call for help.
--- NOTE | 2024-08-22 12:08 | DISCHARGE SUMMARY ---
"Discharge Summary Admit Date: 08/21/24 Discharge Date: 08/22/24 Discharging Provider: Steffanie Schilling PA-C Primary Care Provider: None Code Status: Attempt Resuscitation Condition at Discharge: Stable Discharge Disposition: Home Health Service - DIAGNOSES Admission Diagnoses: 1: Altered mental status due to metabolic encephalopathy 2: Rhabdomyolysis 3: Dehydration 4: HTN Discharge Diagnoses with Status of Each Condition: 1: Altered mental status due to metabolic encephalopathy, resolved 2: Rhabdomyolysis, resolving 3: Dehydration, resolved 4: Hyponatremia, stable 5: HTN, stable - HPI History of Present Illness: Ms. Avendaño is a 68-year-old female who was brought to the ED on 08/21 after she was found on a beach in [place] with altered metnal status. She reported that she went out to lunch the afternoon of 08/20, about 24 hours before she was brought to the ED. She took a walk after lunch but is unable to tell me exactly what happened after that. She was found the morning of 08/21 on the beach in [place] having likely fallen down the bluff. She has multiple contusions on her extremities, including her left thigh, left buttock, left knee and bilateral shins. She has a laceration to the posterior left parietal area and multiple abrasions and scratches. At admission, she knew the year, the month, who she is, and where she is but she is very fuzzy about the details of what happened yesterday afternoon and does not recall the overnight. - CONSULTS | PROCEDURES Consultations: Dr. Serrato, General Surgery - HOSPITAL COURSE Hospital Course: She recieved IV fluids for dehydration and rhabdomyolysis. Imaging was done and she does not have any acute fx or trauma. She was cleaned up and warmed. General surgery was consulted and she has no indications of acute injuries requiring surgical intervention. Her mental status has improved and she is now alert and oriented. Her altered mental status was likely due to metabolic encephalopathy caused by dehydration, exposure over night, and rhabdomyolysis. She could have sustained a mild concussion as she has a contusion to her posterior parietal region and is unable to recall the events that landed her in the hospital. She does not have any other concussive symptoms such as headache, dizziness, nausea, vomiting, phono/photophobia, or ataxia and her head CT was negative for acute intracranial pathology. Her dehydration has resolved and her CK and GFR are improving indicating that the rhabdomyolysis is resolving. She has intermittent episodes of mild confusion which I believe may be her baseline. She lives alone and there is no one to corroborate her baseline mental status. She has mild hyponatremia, currently 130 at discharge and was admitted at 131. There is likely dilutional component due to IV fluids. A review of her records show she had intermittent hyponatremia in the past and thanh has chronic mild hyponatremia. I have encouraged her to use salt to taste and her sodium is stable for discharge. She has a chronic, non-productive, dry cough, reports the change in weather has made it worse. She has no dyspnea or wheezing. She is being discharged home with Domitila Andres to help with the cough. She does not have a PCP and is being discharged with home health. Pt evaluated her and she will be discharged home with a walker which she requested and has used before. She has meals on Wheels and a neighbor who can check in on her and help with her dog if needed. Social work is working to help her establish with a PCP. Given findings of old compression fx and possible old right anterior rib fx, she has likely fallen previously and probably has underlying osteoporosis. She may also have early dementia. - ALLERGIES Allergies/Adverse Reactions: Allergies Allergy/AdvReac Type Severity Reaction Status Date / Time No Known Drug Allergies Allergy Verified 08/21/24 10:36 - MEDICATIONS Home Medications: Ambulatory Orders Medication Instructions Recorded Confirmed Benzonatate [Tessalon] 100 mg PO TID PRN #30 cap 08/22/24 - PHYSICAL EXAM AT DISCHARGE General Appearance: positive: No acute distress, Other (68 y/o female, alert and oriented, well nourished) Eyes Bilateral: positive: Normal inspection ENT: positive: No signs of dehydration Neck: positive: Nml inspection Respiratory: positive: Chest non-tender, No respiratory distress, Breath sounds nml. negative: Wheezes, Rales, Rhonchi Cardiovascular: positive: Regular rate & rhythm, No murmur, No gallop Peripheral Pulses: positive: 2+ Abdomen: positive: Non-tender, No organomegaly, Nml bowel sounds, No distention. negative: Guarding, Rebound Back: positive: Other (Contusion left posterior buttock region of the SI joint) Skin: positive: Color nml, No rash, Warm, Dry Extremities: positive: Pedal edema (Mild non-pitting bilateral), Other (Mild bilateral non-pitting upper extremity edema) Neurologic/Psychiatric: positive: Oriented x3, CN's nml (2-12), Motor nml, Sensation nml, Mood/affect nml Physical Exam Other/Comments: Multiple contusions and abrasions on extremities, able to ambulate with standby assist or with walker. Largest contusions are posterior left buttock SI region, left thigh, and left upper arm. Contusion left posterior parietal laceration. - LABS Result Diagrams: 08/22/24 04:42 08/22/24 04:42 Other Lab Results: Laboratory Tests 08/21/24 08/21/24 08/21/24 10:25 10:25 16:51 Sodium 131 L Potassium 4.8 H BUN 24 H Creatinine 1.1 Estimated GFR (MDRD) 49 L Lactic Acid 3.2 H* 3.1 H* Total Creatine Kinase 4473 H* 08/22/24 04:42 Sodium 130 L Potassium 3.6 BUN 13 Creatinine 0.8 Estimated GFR (MDRD) 71 L Lactic Acid Total Creatine Kinase 2186 H* - DIAGNOSTIC IMAGING Diagnostic Imaging Results: Final report reviewed Diagnostic Imaging Results Comments: Knee x-ray: no acute fx Hip x-ray: no fx CT Head: no acute intracranial pathology CT C-spine: spondylosis, no acute fx CT chest: Possible fx right anterior ribs 3, 4 & 5, chronicity unknown. No other acute chest trauma. CT abdomen: 1) no significant trauma 2) 3.1 cm right lobe liver hemangioma 3) small, shrunken right kidney 4) remote cholecystectomy and hysterectomy 5) old compression fx, no acute compression fx 6) lumbar degenerative changes - SEPSIS Current Stage of Sepsis: Ruled out - QUALITY (Female Hip Fx Only) Was patient sent home on osteoporosis medication?: No"
[2024-08-22 12:56] VITALS: BP 150/97
--- NOTE | 2024-08-22 14:21 | PROVIDER PROGRESS NOTE ---
Subjective - General Admit Date: 08/21/24 - Review of Systems All Other Systems: positive: Reviewed and negative - Other Other Information/Narrative: Patient states she is tired today. Denies any pain. No n/v. No questions or concerns at the time of my visit. Objective - Patient Data Vital Signs: Vital Signs x48h Temp Pulse Pulse Pulse Pulse Resp BP 08/22/24 11:37 36.3 C L 96 18 08/22/24 10:50 97 102 H 103 H 137/96 H 08/22/24 07:27 37.2 C 101 H 18 BP BP BP Pulse Ox 08/22/24 11:37 137/96 H 98 08/22/24 10:50 150/97 H 139/90 H 08/22/24 07:27 123/82 H 95 Weight: Weight 08/20/24 08/21/24 08/22/24 23:59 23:59 23:59 Weight (kg) 74 kg Intake & Output: Intake and Output Totals x24h 08/20/24 08/21/24 08/22/24 23:59 23:59 23:59 Intake Total 3720 1260 Output Total 2950 1300 Balance 770 -40 - Lab Results Lab Results: 08/22/24 04:42 08/22/24 04:42 Other Lab Results: Lab Results x24hrs 08/22/24 08/22/24 08/21/24 Range/Units 04:42 04:42 16:51 WBC 11.1 H (4.8-10.8) x10^3/uL RBC 3.76 L (4.20-5.40) 10^6/uL Hgb 11.1 L (12.0-16.0) g/dL Hct 34.3 L (37.0-47.0) % MCV 91.2 (81.0-99.0) fL MCH 29.5 (27.0-31.0) pg MCHC 32.4 (32.0-36.0) g/dL RDW 13.3 (12.0-15.0) % Plt Count 238 (130-450) 10^3/uL MPV 11.1 H (7.9-10.8) fL Neut # (Auto) 9.0 H (1.5-6.6) 10^3/uL Lymph # (Auto) 1.3 L (1.5-3.5) 10^3/uL [place] # (Auto) 0.7 (0.0-1.0) 10^3/uL Eos # (Auto) 0.0 (0.0-0.7) 10^3/uL Baso # (Auto) 0.0 (0.0-0.1) 10^3/uL Absolute Nucleated RBC 0.00 x10^3/uL Nucleated RBC % 0.0 /100WBC Sodium 130 L (135-145) mmol/L Potassium 3.6 (3.5-4.5) mmol/L Chloride 103 (101-111) mmol/L Carbon Dioxide 22 (21-32) mmol/L Anion Gap 5.0 L (6-13) BUN 13 (6-20) mg/dL Creatinine 0.8 (0.6-1.3) mg/dL Estimated GFR (MDRD) 71 L (>89) Glucose 119 H (74-104) mg/dL Lactic Acid 3.1 H* (0.5-2.2) mmol/L Calcium 8.5 (8.5-10.3) mg/dL Total Creatine Kinase 2186 H* (30-223) IU/L 08/21/24 Range/Units 16:51 WBC (4.8-10.8) x10^3/uL RBC (4.20-5.40) 10^6/uL Hgb (12.0-16.0) g/dL Hct (37.0-47.0) % MCV (81.0-99.0) fL MCH (27.0-31.0) pg MCHC (32.0-36.0) g/dL RDW (12.0-15.0) % Plt Count (130-450) 10^3/uL MPV (7.9-10.8) fL Neut # (Auto) (1.5-6.6) 10^3/uL Lymph # (Auto) (1.5-3.5) 10^3/uL [place] # (Auto) (0.0-1.0) 10^3/uL Eos # (Auto) (0.0-0.7) 10^3/uL Baso # (Auto) (0.0-0.1) 10^3/uL Absolute Nucleated RBC x10^3/uL Nucleated RBC % /100WBC Sodium 133 L (135-145) mmol/L Potassium 3.8 (3.5-4.5) mmol/L Chloride 104 (101-111) mmol/L Carbon Dioxide 22 (21-32) mmol/L Anion Gap 7.0 (6-13) BUN 18 (6-20) mg/dL Creatinine 0.9 (0.6-1.3) mg/dL Estimated GFR (MDRD) 62 L (>89) Glucose 160 H (74-104) mg/dL Lactic Acid (0.5-2.2) mmol/L Calcium 8.8 (8.5-10.3) mg/dL Total Creatine Kinase 3102 H* (30-223) IU/L - Current Medications Current Medications: Current Medications Generic Name Dose Route Start Last Admin Trade Name Freq PRN Reason Stop Dose Admin Acetaminophen 650 mg 08/21/24 13:20 08/22/24 06:45 Acetaminophen 325 Mg Tablet PO 650 mg Q4HR PRN Administration Pain 1 to 4, or Fever Heparin Sodium (Porcine) 5,000 unit 08/21/24 21:00 08/22/24 08:54 Heparin 5,000 Unit/Ml Vial SUBQ 5,000 unit BID CRISTY Administration Oxycodone HCl 5 mg 08/21/24 19:10 08/22/24 13:48 Oxycodone 5 Mg Tablet PO 5 mg Q4HR PRN Administration Moderate Pain (Level 4-6) Sodium Chloride 10 ml 08/21/24 17:00 08/22/24 08:54 Sodium Chloride Flush 0.9% 10 Ml Syringe IVP 10 ml 0100,0900,1700 [facility] Administration - Physical Exam Comments/Other: Tertiary Exam GEN: No acute distress, appears stated age, tired HEENT: abrasion on top of scalp, no laceration, MMM, EOMI, no malocclusion of jaw, sensation intact, no facial ttp, no midline neck ttp NEURO: CN II-XII grossly intact, no obvious focal deficits, patient is oriented to self, birthday, but does not know year, location, where she lives, president (not oriented to place or time) CV: RRR, no murmer appreciated PULM: non labored on RA, no chest wall ttp ABD: soft, non tender, no rebound or guarding BACK: no midline ttp, no step offs CIRCULATORY: no clubbing, cyanosis, trace B LE edema SKIN: multiple lesions and superficial abrasions on B UE, B LE, trunk LYMPH: no obvious lymphadenopathy MSK: 4/4 strength in all extremities, chronic R should and B knee pain (imaging of these joints previously completed, negative) PSYCH: Affect is appropriate Impression/Plan - Problem List Problem List: This is a 68 y/o F s/p fall from 30 ft embankment, exposure for approx 12 hours. 1. left hip pain, stable - no acute fx 2. Dehydration, elevated EK, lactate - improving 3. chronic medical problems - patient states she takes no home meds, but some old meds in chart - as per primary team recommendations. Tertiary exam reveals no new traumatic injuries. Patient's mental status has waxed and waned during her hospital stay, confused for me at the time of my exam today, but oriented at time of presentation yesterday and this morning for primary team. Arrangements have been made for CARLITO, PT, RN, OT. From trauma standpoint, no acute injuries. General surgery will sign off. Please call with any new questions or concerns.
== END 2024-08-22 15:37 | disposition home health service (06) ==
LOC: EDUNIT# → ED 10:14 → MS2 13:20
PROVIDERS: ADMIT Physician Assistant Medical; ATTEND Physician Assistant Medical
DX: G93.41 Metabolic encephalopathy (principal); S80.12XA Contusion of left lower leg, initial encounter; S70.12XA Contusion of left thigh, initial encounter; S01.01XA Laceration without foreign body of scalp, initial encounter; S40.022A Contusion of left upper arm, initial encounter; S40.021A Contusion of right upper arm, initial encounter; S70.02XA Contusion of left hip, initial encounter; S30.0XXA Contusion of lower back and pelvis, initial encounter; S80.02XA Contusion of left knee, initial encounter; W17.81XA Fall down embankment (hill), initial encounter; T79.6XXA Traumatic ischemia of muscle, initial encounter; E86.0 Dehydration; I10 Essential (primary) hypertension; E87.1 Hypo-osmolality and hyponatremia; R05.8 Other specified cough; Z91.81 History of falling; Z60.2 Problems related to living alone; R07.9 Chest pain, unspecified; R00.0 Tachycardia, unspecified; H61.23 Impacted cerumen, bilateral; M25.552 Pain in left hip; R74.02 Elevation of levels of lactic acid dehydrogenase [LDH]
CPT/HCPCS: 36415; 51702; 70450; 71260; 72125; 73502; 73562; 74177; 80048; 80053; 82550; 83605; 83690; 83735; 85025; 85610; 85730; 93005; 96361; 96372; 96374; 96375; 97116; 97162; 99285; A9270; G0378; J1170; Q9967

== ENCOUNTER 2024-12-16 13:27 | Observation (INO) ==
--- NOTE | 2024-12-16 13:40 | ED Physician Documentation ---
History of Present Illness Stated complaint Stated Complaint: SYNCOPAL EPISODE Chief complaint Chief Complaint: Neuro Additonal information Additional information: This is a 69-year-old woman with history of COPD, recurrent syncope who presents after syncopal episode. She was out and about with a friend without premonition passed out for about a minute. There was no injury. She feels fine now. No associated chest pain or trouble breathing. Review of the chart shows that several times she has been advised to follow-up with her primary care physician with consideration for extended heart monitoring, she has not called her doctor's office. Meds/Allgy Home Medications Ambulatory Orders Medication Instructions Recorded Confirmed benzonatate 100 mg capsule 100 mg PO TID PRN Cough #30 caps 08/22/24 dexamethasone 2 mg tablet 2 mg PO DAILY #7 tabs 11/16/24 Allergies Allergies Allergy/AdvReac Type Severity Reaction Status Date / Time No Known Drug Allergies Allergy Verified 12/16/24 13:50 PFSH Social History Social History Smoking Status: Never smoker Do you dip or chew tobacco?: No Patient requests smoking cessation consult: No Initiate information on smoking cessation: No Living arrangement: At home Living Condition: Alone Relationship: Level: Independent Do you feel safe in your home environment?: Yes Suffered physical, verbal, emotional, or financial abuse?: No History of Abuse: No ETOH Use: Wine Frequency: Weekly Number of Amount/day: 5 POLST Patient has POLST: No POLST Status: Full Code Exam Constitutional normal general appearance and no apparent distress HENMT normocephalic Eyes PERRL and EOMs intact bilaterally Respiratory breath sounds equal bilaterally, normal respiratory effort and clear to auscultation bilaterally Cardiovascular normal heart rate noted, regular rhythm noted and no murmur Extremities normal to inspection and normal to palpation Neurology information technology technician II-XII intact and GCS 15 Results Vitals Vitals: Vital Signs - 24 hr 12/16/24 13:47 Temperature 37.7 C Temperature Source Oral Pulse Rate 89 Respiratory Rate 18 Blood Pressure 168/118 H O2 Saturation 98 O2 Source Room air Pain Intensity 0 Oxygen O2 Source Room air EKG (time done) 1356: EKG releavant findings:: EKG personally interpreted by author of this note. Relevant findings are: Normal sinus rhythm with a rate of 87. There is some artifact but no other obvious abnormalities such as long QTc or wide QRS. Labs Labs: Laboratory Tests 12/16/24 12/16/24 13:44 15:13 WBC 7.1 RBC 5.03 Hgb 15.1 Hct 45.6 MCV 90.7 MCH 30.0 MCHC 33.1 RDW 12.2 Plt Count 327 MPV 10.4 Neut # (Auto) 5.8 Lymph # (Auto) 1.0 L [place] # (Auto) 0.3 Eos # (Auto) 0.0 Baso # (Auto) 0.0 Absolute Nucleated RBC 0.00 Nucleated RBC % 0.0 Sodium 137 Potassium 4.0 Chloride 104 Carbon Dioxide 26 Anion Gap 7.0 BUN 12 Creatinine 0.8 Estimated GFR (MDRD) 71 L Glucose 118 H Calcium 9.8 Urine Color LT. YELLOW Urine Clarity CLEAR Urine pH 6.0 Ur Specific [place] 1.010 Urine Protein NEGATIVE Urine Glucose (UA) NEGATIVE Urine Ketones NEGATIVE Urine Occult Blood NEGATIVE Urine Nitrite NEGATIVE Urine Bilirubin NEGATIVE Urine Urobilinogen 0.2 (NORMAL) Ur Leukocyte Esterase NEGATIVE Ur Microscopic Review NOT INDICATED Urine Culture Comments NOT INDICATED Urine Opiates Screen NEGATIVE Ur Buprenorphine Scrn NEGATIVE Ur Oxycodone Screen NEGATIVE Urine Methadone Screen NEGATIVE Ur Barbiturates Screen NEGATIVE Ur Tricyclics Screen NEGATIVE Ur Phencyclidine Scrn NEGATIVE Ur Amphetamine Screen NEGATIVE U Methamphetamines Scrn NEGATIVE U Benzodiazepines Scrn NEGATIVE Urine Cocaine Screen NEGATIVE U Cannabinoids Screen NEGATIVE Ur Drug Screen Comment CUTOFF CONC BELOW: Ethyl Alcohol < 10.0 Rads (name of study) CT Head: Relevant Findings:: Final report received and EMP independent interpretation of test PD Medical Decision Making ED course ED course: She presents after syncopal episode, this seems to be a recurrent process where she passes out. Previous ED workups have been negative and she has not followed up with PCP for further evaluation and treatment. That said interestingly shortly after initial evaluation I noticed her all wrapped up in her cords with the IV pole knocked over. More thorough neurologic examination was done and she was alert and oriented to person but not place or time. When asked her where she was she simply said "I do not know." And then when I prompted her "are you in your home?" She responded in the positive. This continued while in the emergency department and as such a CT of the head was done and also toxicology testing was added on without pertinent positive findings (urine drug screen and urinalysis were pending on decision to admit). Spoke with Dr. Wynn for observation at 3:23 PM. While our hospitalist colleagues were examining the patient she had what was reported to me as an absence seizure. She was on the cut out worker at the time and reportedly did not have any arrhythmias. Her hospitalists are planning to load her with Toy. Discharge Plan Discharge Patient Disposition: ED Place in Observation Condition: Stable Clinical Impression: Syncope, Encephalopathy Prescriptions: No Action benzonatate 100 MG capsule 100 mg PO TID PRN (Reason: Cough) Qty: 30 0RF dexamethasone 2 mg tablet 2 mg PO DAILY Qty: 7 0RF Print Language: Tamazight Stand Alone Forms: PCP List
[2024-12-16 13:48] LABS: BASOPHILS % (AUTO) 0.3 %; EOSINOPHILS % (AUTO) 0.1 %; HCT - HEMATOCRIT 45.6 % (37.0-47.0); HGB - HEMOGLOBIN 15.1 g/dL (12.0-16.0); LYMPHOCYTES % (AUTO) 13.6 %; MEAN CORPUSCULAR HGB CONC 33.1 g/dL (32.0-36.0); MEAN CORPUSCULAR VOLUME 90.7 fL (81.0-99.0); MEAN PLATELET VOLUME 10.4 fL (7.9-10.8); MONOCYTES # (AUTO) 0.3 10^3/uL (0.0-1.0); MONOCYTES % (AUTO) 3.7 %; NEUTROPHILS # (AUTO) 5.8 10^3/uL (1.5-6.6); NEUTROPHILS % (AUTO) 81.9 %; PLT - PLATELET COUNT 327 10^3/uL (130-450); RED BLOOD COUNT 5.03 10^6/uL (4.20-5.40); RED CELL DISTRIBUTION WIDTH 12.2 % (12.0-15.0); WHITE BLOOD COUNT 7.1 x10^3/uL (4.8-10.8)
[2024-12-16] MEDS: SODIUM CHLORIDE 0.9% 1,000 ML IV STA (13:58)
[2024-12-16 14:28] LABS: CALCIUM 9.8 mg/dL (8.5-10.3); CREATININE 0.8 mg/dL (0.6-1.3)
--- NOTE | 2024-12-16 14:35 | CT Report ---
PROCEDURE: CT Head WO INDICATIONS: confusion TECHNIQUE: Noncontrast 4.5 mm thick angled axial sections acquired from the foramen magnum to the vertex. For r adiation dose reduction, the following was used: automated exposure control, adjustment of mA and/or kV according to patient size. COMPARISON: 08/21/2024. FINDINGS: Image quality: Excellent. CSF spaces: Basal cisterns are patent. No extra-axial fluid collections. Ventricles are normal in size and shape. Brain: No midline shift. No intracranial masses or hemorrhage. Weiner-white matter interface is norm al. Skull and face: Calvarium and visualized facial bones are intact, without suspicious lesions. Sinuses: Visualized sinuses and mastoids are clear. IMPRESSION: No acute intracranial pathology. Reviewed by: Rianna Chamberlain MD on 12/16/2024 1:34 PM [facility] Approved by: Rianna Chamberlain MD on 12/16/2024 1:34 PM [facility] Station ID: [id number]
[2024-12-16 15:32] LABS: BILIRUBIN,URINE NEGATIVE (NEGATIVE); GLUCOSE, URINE (UA) NEGATIVE (NEGATIVE); KETONES,URINE (UA) NEGATIVE (NEGATIVE); LEUKOCYTE ESTERASE, URINE NEGATIVE (NEGATIVE); NITRITE,URINE NEGATIVE (NEGATIVE); OCCULT BLOOD,URINE NEGATIVE (NEGATIVE); PROTEIN,URINE NEGATIVE (NEGATIVE); UROBILINOGEN,URINE 0.2 (NORMAL) E.U./dL (NORMAL)
[2024-12-16 15:33] LABS: CLARITY,URINE CLEAR (CLEAR)
[2024-12-16 15:43] LABS: AMPHETAMINE SCREEN,URINE NEGATIVE (NEGATIVE); BARBITURATE SCREEN,UR NEGATIVE (NEGATIVE); BENZODIAZEPINES SCREEN, URINE NEGATIVE (NEGATIVE); BUPRENORPHINE SCREEN, URINE NEGATIVE (NEGATIVE); COCAINE SCREEN URINE NEGATIVE (NEGATIVE); METHADONE SCREEN, URINE NEGATIVE (NEGATIVE); METHAMPHETAMINES SCREEN, URINE NEGATIVE (NEGATIVE); OPIATE SCREEN, URINE NEGATIVE (NEGATIVE); OXYCODONE SCREEN, URINE NEGATIVE (NEGATIVE); THC CANNABINOID SCREEN, URINE NEGATIVE (NEGATIVE); TRICYCLIC ANTIDEPRESSANT,URINE NEGATIVE (NEGATIVE)
[2024-12-16] MEDS: levETIRAcetam 500 MG/5 ML VIAL IVP STA (16:00)
--- NOTE | 2024-12-16 16:02 | HISTORY & PHYSICAL EXAMINATION ---
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 Patient is unable to provide much history. She states the last thing she remembers is being at home with her dogs. The next thing she remembers is being here. ED documentation was reviewedhere, it states that she was out and about with her friend and passed out for about a minute. Further documentation reveals that she has had multiple episodes of "syncope." The last one documented was an ED visit on 11/16/2024; patient was at her primary care physician's office, and she had a seizure in the waiting room while getting ready to leave. She was discharged home without an antiepileptic at this time. Further documentation was reviewedin 08/22/2024, patient had presented due to altered mentation after being found down at the beach in [place]. Another note from 06/29/2024 describes a syncopal episode at home. A note from 09/16/2021 reveals an admission for grand mal seizures requiring an ICU stay. She was discharged home with Keppra 500 mg twice daily at that time. She was advised to follow-up outpatient with a neurologist. It appears that she has not done so at this time. The patient states that she may have been on Keppra in the past, but since her primary care doctor retired in 2017, she has not seen another physician, nor has she been taking any medications. She denies any fevers, chills, shortness of breath, wheezing, nausea, vomiting, abdominal pain. She also denies any dysuria, urinary frequency, urinary incontinence. During our conversation, patient had an episode where she stared out into the distance, became unresponsive. She had no shaking of her upper or lower extremities. After approximately 1 minute, she came back to. She was very confused after this episode. 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 Many notes from the past describe many friends in the area. Patient states her closest relative is her brother, who lives in [place]. She endorses social alcohol use, a few times a month. She denies any tobacco use, recreational drug use. Retired. Used to work at a [employer]. Meds/Allgy Home Medications Ambulatory Orders Medication Instructions Recorded Confirmed benzonatate 100 mg capsule 100 mg PO TID PRN Cough #30 caps 08/22/24 dexamethasone 2 mg tablet 2 mg PO DAILY #7 tabs 11/16/24 Allergies Allergies Allergy/AdvReac Type Severity Reaction Status Date / Time No Known Drug Allergies Allergy Verified 12/16/24 13:50 PFS Social History Social History Smoking Status: Never smoker Do you dip or chew tobacco?: No Do you vape?: No Patient requests smoking cessation consult: No Initiate information on smoking cessation: No Living arrangement: At home Living Condition: Alone Relationship: Level: Assisted Do you feel safe in your home environment?: Yes Suffered physical, verbal, emotional, or financial abuse?: No History of Abuse: No ETOH Use: Wine Frequency: Weekly Number of Amount/day: 5 POLST Patient has POLST: No POLST Status: Full Code Review of Systems Constitutional Denies: Fatigue, Fever, Chills, Malaise or Weakness Eyes Denies: Pain, Irritation or Blurry vision Ears, nose, mouth, and throat Denies: Ear pain, Hearing loss, Hearing aids, Neck pain or Throat swelling Cardiovascular Denies: Irregular heart rate, chest pain, palpitations, edema or shortness of breath with exertion Respiratory Denies: Shortness of breath or Cough Gastrointestinal Denies: Abdominal pain, Abdominal distention, Nausea, Vomiting or Poor appetite Genitourinary Denies: Painful urination, Urinary frequency, Urinary urgency, Nocturia or Urinary incontinence Musculoskeletal Denies: Back pain, Neck pain or Extremity pain Integumentary/Breast Denies: Rash, Itching, Dryness, Redness or Skin pain Neurological Reports: Confusion, Seizure-like activity and Involuntary movements; Denies: Headache, General weakness or Focal weakness Psychiatric Denies: Depression, Anxiety, Mood swings or Panic attacks Endocrine Denies: Excessive urination, Excessive thirst, Polyphagia or Fatigue Hematologic/Lymphatic Denies: Anemia, Easy bruising, Petechiae or Easy bleeding Allergic/Immunologic Denies: Hives, Throat swelling or Tongue swelling Prior Level of Functionality: Lives independently. Ambulates independently. Exam Constitutional normal general appearance and no apparent distress HENMT normocephalic, head/scalp atraumatic and hearing grossly normal bilaterally Eyes PERRL, EOMs intact bilaterally and conjunctivae normal Lymph no lymphadenopathy noted Respiratory breath sounds equal bilaterally, normal respiratory effort, clear to auscultation bilaterally, no wheezes and no rales Cardiovascular normal heart rate noted, regular rhythm noted, no gallop, no rub and no murmur Gastrointestinal abdomen normal to inspection and nondistended Genitourinary no CVA tenderness and bladder normal to palpation Back/Pelvis spine normal to inspection and no thoracic spine tenderness Extremities normal to inspection, normal to palpation and no tenderness Neurology Patient had episode of unresponsiveness in the middle of physical examshe stared off into the distance. No tonic-clonic jerking was noted of extremities. After approximately minute, she started to come to, but was very confused afterwards. Neurological exam could not be completed. Psychiatry oriented x3 and cooperative Skin skin color normal, no rash, no lesions and no ecchymosis noted Conclusion/Plan Problem List (1) Complex partial seizure: Plan: Witnessed what looked like a complex partial seizure at time of examination. Self aborted. Patient was confused after the fact. Loaded patient with 1000 g Keppra IV. Will continue Keppra 500 mg twice daily. After further questioning, patient states that she has had some neurological complications after an episode of meningitis in childhood. She was last prescribed this in 09/18. She was to continue this on discharge, follow-up with a primary care doctor, follow-up with a neurologist, but she has not done so. Seizure precautions in place, continue to monitor closely. If there is any concern for status epilepticus, will speak with neurologist at higher level of care. (2) Encephalopathy: Plan: Likely postictal due to above. Patient has had many episodes of syncope in the past necessitating emergency room visits as well as admissions. Likely these are seizure activities. Qualifiers: Encephalopathy type: unspecified encephalopathy Qualified Code(s): G 93.40 - Encephalopathy, unspecified (3) Hypertension: Plan: Patient was prescribed losartan in the past; will start this at 50 mg during this visit. Continue to monitor blood pressure closely. Qualifiers: Hypertension type: unspecified Qualified Code(s): I10 - Essential (primary) hypertension (4) Seizure disorder: Plan: Patient with a documented seizure history. Continue 500 mg Keppra twice daily. Will encourage neurology follow-up in the outpatient setting. (5) Asthma: Plan: Will continue DuoNebs as needed for difficulty in breathing. Patient does state that she uses an inhaler as needed for shortness of breath in the outpatient setting. Qualifiers: Asthma complication type: unspecified Asthma persistence: unspecified Asthma severity: unspecified severity Qualified Code(s): J45.909 - Unspecified asthma, uncomplicated Lab Results Lab results reviewed: Yes 12/16/24 13:44 12/16/24 13:44 Diagnostic Imaging Results Diagnostic Imaging Results: positive Final report reviewed
[2024-12-16] MEDS ORDERED: SODIUM CHLORIDE FLUSH 0.9% 10 ML SYRINGE IVP PRN (16:59)
[2024-12-16] MEDS ORDERED: IPRATROPIUM/ALBUTEROL 3 ML NEB INH PRN (16:59)
[2024-12-16] MEDS: SODIUM CHLORIDE FLUSH 0.9% 10 ML SYRINGE IVP SCH (17:48)
[2024-12-16] MEDS: LOSARTAN 50 MG TABLET PO SCH (17:48)
[2024-12-16] MEDS: levETIRAcetam 250 MG TABLET PO SCH (21:12)
[2024-12-16] MEDS: ACETAMINOPHEN 325 MG TABLET PO PRN (21:29)
[2024-12-16] MEDS: ACETAMINOPHEN 500 MG TABLET PO SCH (23:56)
[2024-12-17] MEDS: BENZONATATE 100 MG CAPSULE PO PRN (00:40)
--- NOTE | 2024-12-17 08:22 | PHARMACY PROGRESS NOTE ---
Best Possible Medication History Admit Date and Time: 12/16/24 1558 Home Medications Medication Instructions Recorded Confirmed Type No Known Home Medications 12/17/24 12/17/24 History Processed by: Pharmacy Medications reviewed in ED?: No Medication History completed: Yes [facility] Statement: As the person ultimately responsible for medication therapy, providers are able to order a medication from an existing home medication list in [facility] via the "Reconcile Routine" prior to Confirmation of that medication by ict support technicians. Such practice is discouraged except when the physician, in their clinical judgment, deems that a medical need exists for a medication without regard to previous use.
--- NOTE | 2024-12-17 08:29 | Discharge Summary ---
Discharge Summary Admit Date: 12/16/24 Discharge Date: 12/17/24 Discharging Provider: Dr. Meghan Wynn Primary Care Provider: Herminia Hidalgo ([facility]) Code Status: Attempt Resuscitation Discharge Facility Name: Home DIAGNOSES Admission Diagnoses: Complex partial seizure Encephalopathy Hypertension Seizure disorder Asthma Discharge Diagnoses with Status of Each Condition: Complex partial seizurepatient does appear to have a long history of seizure disorder after meningitis as a child. Was previously on Keppra 500 mg twice a day. Was loaded with a gram of Keppra yesterday. Will continue 500 mg twice a day. Encephalopathyresolved. Hypertensioncontinue losartan. Seizure disordercontinue Keppra. Asthmapatient has albuterol inhaler at home, continue as needed. 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 Patient is unable to provide much history. She states the last thing she remembers is being at home with her dogs. The next thing she remembers is being here. ED documentation was reviewedhere, it states that she was out and about with her friend and passed out for about a minute. Further documentation reveals that she has had multiple episodes of "syncope." The last one documented was an ED visit on 11/16/2024; patient was at her primary care physician's office, and she had a seizure in the waiting room while getting ready to leave. She was discharged home without an antiepileptic at this time. Further documentation was reviewedin 08/22/2024, patient had presented due to altered mentation after being found down at the beach in [place]. Another note from 06/29/2024 describes a syncopal episode at home. A note from 09/16/2021 reveals an admission for grand mal seizures requiring an ICU stay. She was discharged home with Keppra 500 mg twice daily at that time. She was advised to follow-up outpatient with a neurologist. It appears that she has not done so at this time. The patient states that she may have been on Keppra in the past, but since her primary care doctor retired in 2016, she has not seen another physician, nor has she been taking any medications. She denies any fevers, chills, shortness of breath, wheezing, nausea, vomiting, abdominal pain. She also denies any dysuria, urinary frequency, urinary incontinence. During our conversation, patient had an episode where she stared out into the distance, became unresponsive. She had no shaking of her upper or lower extremities. After approximately 1 minute, she came back to. She was very confused after this episode. 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 Many notes from the past describe many friends in the area. Patient states her closest relative is her brother, who lives in [place]. She endorses social alcohol use, a few times a month. She denies any tobacco use, recreational drug use. Retired. Used to work at a [employer]. CONSULTS | PROCEDURES Consultations: - Procedures: CT head - negative for acute infarct - done 12/16. HOSPITAL COURSE Hospital Course: Patient is a 69-year-old female who was brought in for possible confusion. It was concern for may be syncope. While examining her, she appeared to have a complex focal seizure. After doing chart review,, patient has had multiple episodes of possible syncope. It appears that she has a history of seizure disorder, and was previously prescribed Keppra for it, but has not been taking it. We loaded her with Keppra, resumed her Keppra [address] scan was ordered, and showed no acute infarcts. All her lab work was normal. She does have some cognitive difficulties after her childhood meningitis which appear to be chronic. She lives [place], and has support from her neighbors at home. Her closest living contact is her brother, who lives in [place]. Did try to call him a few times to give an update, but was unable to reach him. Social work arranged paratransit for the patient. ALLERGIES Allergies Allergy/AdvReac Type Severity Reaction Status Date / Time No Known Drug Allergies Allergy Verified 12/16/24 13:50 MEDICATIONS Ambulatory Orders Medication Instructions Recorded Confirmed No Known Home Medications 12/17/24 12/17/24 levetiracetam 250 mg tablet 500 mg (2 x 250 mg) PO BID 30 days 12/17/24 #120 tabs losartan 50 mg tablet 50 mg PO DAILY #30 tabs 12/17/24 PHYSICAL EXAM AT DISCHARGE General Appearance: positive No acute distress and Alert; negative Mild distress, Anxious or Lethargic Eyes Bilateral: positive Normal inspection, PERRL and EOMI ENT: positive ENT inspection nml, Pharynx nml and No signs of dehydration Neck: positive Nml inspection, Thyroid nml and No JVD Respiratory: positive Chest non-tender, No respiratory distress and Breath sounds nml; negative Wheezes, Rales or Rhonchi Cardiovascular: positive Regular rate & rhythm, No murmur and No gallop Peripheral Pulses: positive 2+ Abdomen: positive Non-tender; negative Rebound, Hepatomegaly or Splenomegaly Back: positive Nml inspection; negative CVA tenderness (R) or CVA tenderness (L) Skin: positive Color nml, No rash and Warm Extremities: positive Non-tender, Full ROM, Nml appearance and No pedal edema Neurologic/Psychiatric: positive Oriented x3 and Other (Patient does have a stutter, remote memory loss) LABS 12/16/24 13:44 12/16/24 13:44 DIAGNOSTIC IMAGING Diagnostic Imaging Results: Final report reviewed QUALITY (Female Hip Fx Only) Was patient sent home on osteoporosis medication?: No FOLLOW UP Follow Up: Follow up with primary care doctor. Follow up with neurologist. TIME SPENT Time Spent in Discharge (Minutes): 35 Discharge Plan Discharge Patient Disposition: Home, Self Care Condition: Stable Prescriptions: New losartan 50 mg Tablet 50 mg PO DAILY Qty: 30 0RF levetiracetam 250 mg Tablet 500 mg PO BID 30 Days Qty: 120 0RF No Action No Known Home Medications Diet: Regular Health Concerns: You came in because of some confusion, and a possible episode of you passing out. You have seizure disorder, and we watched you have a seizure while you we were in the emergency room. You are supposed to be on Keppra 500 mg twice a day. Please keep this pill bottle about in front of you so you remember to take it twice a day. You also need to be on a medication to lower your blood pressure. This is losartan 50 mg, which you should take once a day. You are feeling back to your normal self. If you do feel confused at home, or are worried that you may have passed out again, please come to the emergency room. Please follow up with a primary care provider, and a neurologist. We are glad you are feeling better, thank you for allowing us to take care of you. Print Language: Ivorian Patient Instructions: Epilepsy Dc Stand Alone Forms: PCP List
[2024-12-17] MEDS: ENOXAPARIN 40 MG/0.4 ML SYRINGE SUBQ SCH (09:22)
[2024-12-17] MEDS: BENZOCAINE/MENTHOL LOZENGE MM PRN (09:24)
[2024-12-17] MEDS: LOSARTAN 50 MG TABLET PO SCH (09:24)
[2024-12-17 12:28] VITALS: TEMP 97.2; O2SAT 94
[2024-12-17 13:38] VITALS: BP 155/98
== END 2024-12-17 13:55 | disposition home or self-care (01) ==
LOC: MS2 13:27 → ED 13:27 → MS2 17:13
PROVIDERS: ADMIT Internal Medicine; ATTEND Internal Medicine

== ENCOUNTER 2025-02-25 17:30 | Observation (INO) ==
--- NOTE | 2025-02-25 17:43 | ED Physician Documentation ---
History of Present Illness Stated complaint Stated Complaint: SZ Chief complaint Chief Complaint: Neuro History obtained from History obtained from: Patient History of Present Illness Timing: Prior to arrival Additonal information Additional information: Patient 69-year-old female presenting to the emergency department after seizure- like activity while out walking her dog. Patient was lowered to the ground by staff patient had 1 seizure in room that was witnessed by EMS. 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 She is ANO x 2 on arrival unsure if this is her baseline. Patient does not remember having a seizure today she notes she has not take any medications despite being discharged multiple times on Keppra at this point. Patient denies any pain except for in her right shoulder and says she had surgery on it back in 2005.Patient denies any body aches no head pain she does not recall having the seizures she denies any alcohol or other drug use.Patient is not orientated to date or where she is at this time Meds/Allgy Home Medications Ambulatory Orders Medication Instructions Recorded Confirmed levetiracetam 250 mg tablet 500 mg (2 x 250 mg) PO BID 30 days 12/17/24 #120 tabs losartan 50 mg tablet 50 mg PO DAILY #30 tabs 12/17/24 albuterol sulfate 90 mcg/actuation 2 puff inhalation QID PRN 01/06/25 aerosol inhaler (Ventolin HFA) shortness of breath or wheezing #8.5 grams dexamethasone 2 mg tablet 2 mg PO DAILY #7 tabs 01/06/25 losartan 50 mg tablet 50 mg PO DAILY #30 tabs 01/06/25 Allergies Allergies Allergy/AdvReac Type Severity Reaction Status Date / Time No Known Drug Allergies Allergy Verified 12/16/24 13:50 PFSH Active Problems All Active Problems (Updated 02/25/25 @ 21:51 by Marine Mendoza PA-C) Post-ictal confusion (Acute) Seizure (Acute) Hypertension (Acute) Chronic recurrent bronchiolitis (Acute) Acute dyspnea (Acute) Asthma (Acute) Seizure disorder (Acute) Acute exacerbation of COPD with asthma (Acute) Dyspnea (Acute) Elevated blood pressure reading (Acute) Syncope (Acute) Hyperkalemia (Acute) Head contusion (Acute) Dehydration (Acute) Rhabdomyolysis (Acute) Multiple contusions (Acute) Injury resulting from fall from height (Acute) Accident due to mechanical fall without injury (Acute) Fall at home (Acute) Leukocytosis (Acute) Hyponatremia (Acute) Seizure (Acute) Altered mental status (Acute) TIA (transient ischemic attack) (Acute) Hypertension (Acute) Medical History Medical History (Updated 02/25/25 @ 21:51 by Marine Mendoza PA-C) Uterine fibroid resolved with hysterectomy Meningitis spinal Diagnosed at 6 months old, fever 106. Surgical History Surgical History H/O hysterectomy with oophorectomy Due to uterine fibroids Social History Social History Smoking Status: Never smoker Do you dip or chew tobacco?: No Do you vape?: No Patient requests smoking cessation consult: No Initiate information on smoking cessation: No Living arrangement: At home Living Condition: Alone Relationship: Level: Assisted Do you feel safe in your home environment?: Yes Suffered physical, verbal, emotional, or financial abuse?: No History of Abuse: No ETOH Use: Wine Frequency: Weekly Number of Amount/day: 5 POLST Patient has POLST: No POLST Status: Full Code Exam Constitutional normal general appearance HENMT normocephalic and head/scalp atraumatic Eyes PERRL, EOMs intact bilaterally and conjunctivae normal Neck/C-Spine visual inspection normal Lymph no lymphadenopathy noted Chest inspection of chest normal Respiratory breath sounds equal bilaterally, normal respiratory effort and clear to auscultation bilaterally Cardiovascular normal heart rate noted, regular rhythm noted, no gallop and no rub Extremities Reproducible right shoulder tenderness no obvious deformity appreciated all surgical scar appreciated but no other acute findings. Results Vitals Vitals: Vital Signs - 24 hr 02/25/25 17:35 02/25/25 19:26 02/25/25 20:00 Temperature 36.3 C L 36.1 C L Temperature Source Temporal Artery Scan Temporal Artery Scan Pulse Rate 94 87 84 Respiratory Rate 16 20 16 Blood Pressure 153/101 H 169/116 H 164/102 H O2 Saturation 97 98 97 O2 Source Room air Room air Room air Pain Intensity 0 Oxygen O2 Source Room air Labs Labs: Laboratory Tests 02/25/25 02/25/25 17:52 18:53 WBC 10.6 RBC 4.49 Hgb 13.5 Hct 40.1 MCV 89.3 MCH 30.1 MCHC 33.7 RDW 12.5 Plt Count 306 MPV 10.3 Neut # (Auto) 8.7 H Lymph # (Auto) 1.3 L Emmons # (Auto) 0.6 Eos # (Auto) 0.0 Baso # (Auto) 0.0 Absolute Nucleated RBC 0.00 Nucleated RBC % 0.0 Sodium 132 L Potassium 3.8 Chloride 99 L Carbon Dioxide 24 Anion Gap 9.0 BUN 18 Creatinine 0.9 Estimated GFR (MDRD) 62 L Glucose 110 H Calcium 10.1 Total Bilirubin 1.1 H AST 18 ALT 14 Alkaline Phosphatase 61 Total Protein 6.5 Albumin 4.4 Globulin 2.1 Albumin/Globulin Ratio 2.1 Urine Color YELLOW Urine Clarity CLEAR Urine pH 6.0 Ur Specific [place] 1.015 Urine Protein TRACE Urine Glucose (UA) NEGATIVE Urine Ketones 15 H Urine Occult Blood NEGATIVE Urine Nitrite NEGATIVE Urine Bilirubin NEGATIVE Urine Urobilinogen 0.2 (NORMAL) Ur Leukocyte Esterase NEGATIVE Ur Microscopic Review NOT INDICATED Urine Culture Comments NOT INDICATED Urine Opiates Screen NEGATIVE Ur Buprenorphine Scrn NEGATIVE Ur Oxycodone Screen NEGATIVE Urine Methadone Screen NEGATIVE Ur Barbiturates Screen NEGATIVE Ur Tricyclics Screen NEGATIVE Ur Phencyclidine Scrn NEGATIVE Ur Amphetamine Screen NEGATIVE U Methamphetamines Scrn NEGATIVE U Benzodiazepines Scrn NEGATIVE Urine Cocaine Screen NEGATIVE U Cannabinoids Screen NEGATIVE Ur Drug Screen Comment CUTOFF CONC BELOW: Ethyl Alcohol < 10.0 PD Medical Decision Making ED course Complexity details: reviewed old records and reviewed results ED course: Patient has interesting history of history of recurrent syncope she has a history of childhood meningitis that has caused persistent symptoms into her adulthood with poor memory and requires her to live in a fpc facility where she has assistance from her neighbors. She is ANO x 2 on arrival unsure if this is her baseline. Patient does not remember having a seizure today she notes she has not take any medications despite being discharged multiple times on Keppra at this point. Patient denies any pain except for in her right shoulder and says she had surgery on it back in 2005.Patient denies any body aches no head pain she does not recall having the seizures she denies any alcohol or other drug use.Patient is not orientated to date or where she is at this time While here in the ED patient appeared to have another seizure where she was staring off into space and trying to put her medical gown in her mouth. This at bedside lasted for about 5 to 10 minutes. Here she had no shaking but had significant change in her behavior and was not answering questions staring off into space. Patient was sent for head CT scan and was given a loading dose of Keppra here in the emergency department. Given these concerning findings. Patient will need to be admitted for restarting on her Keppra and monitoring her as she does live alone. CT head: No acute intracranial pathology. Discussed case with Dr. Gray given reassuring labs here in the ED no signs of infection and no acute cause for altered mental status and reassuring head CT patient with benefit from admission at this time. She is agreeable with this plan. Patient will be admitted for obs. She has some right shoulder pain and x- ray will be obtained here in the ED. Discharge Plan Discharge Patient Disposition: 66 [facility] DC/Xfer Condition: Stable Clinical Impression: Seizure, Post-ictal confusion
[2025-02-25 17:58] LABS: BASOPHILS % (AUTO) 0.3 %; EOSINOPHILS % (AUTO) 0.1 %; HCT - HEMATOCRIT 40.1 % (37.0-47.0); HGB - HEMOGLOBIN 13.5 g/dL (12.0-16.0); LYMPHOCYTES # (AUTO) 1.3 10^3/uL (1.5-3.5); LYMPHOCYTES % (AUTO) 12.5 %; MEAN CORPUSCULAR HEMOGLOBIN 30.1 pg (27.0-31.0); MEAN CORPUSCULAR HGB CONC 33.7 g/dL (32.0-36.0); MEAN CORPUSCULAR VOLUME 89.3 fL (81.0-99.0); MEAN PLATELET VOLUME 10.3 fL (7.9-10.8); MONOCYTES # (AUTO) 0.6 10^3/uL (0.0-1.0); MONOCYTES % (AUTO) 5.3 %; NEUTROPHILS # (AUTO) 8.7 10^3/uL (1.5-6.6); NEUTROPHILS % (AUTO) 81.4 %; PLT - PLATELET COUNT 306 10^3/uL (130-450); RED BLOOD COUNT 4.49 10^6/uL (4.20-5.40); RED CELL DISTRIBUTION WIDTH 12.5 % (12.0-15.0); WHITE BLOOD COUNT 10.6 x10^3/uL (4.8-10.8)
[2025-02-25 18:11] LABS: ALBUMIN 4.4 g/dL (3.2-5.5); ALBUMIN/GLOBULIN RATIO 2.1 (1.0-2.2); BILIRUBIN,TOTAL 1.1 mg/dL (0.2-1.0); CALCIUM 10.1 mg/dL (8.5-10.3); CREATININE 0.9 mg/dL (0.6-1.3); POTASSIUM 3.8 mmol/L (3.5-4.5); TOTAL PROTEIN 6.5 g/dL (6.4-8.9)
--- OUTSIDE RECORDS SUMMARY | 2025-02-25 18:40 | EXTERNAL MEDICAL SUMMARY RPT | Continuity of Care Document ---
Author Organization [place] Address [address] [address] Phone Problems date description facility 2024-11-27 12:45 Encounter for observ ation for other suspected diseases and conditions [facility] 2024-11-27 13:14 [facility] 2024-12-17 10:56 Epilepsy, unspecifie d, not intractable, without status epilepticus [facility] 2024-12-17 10:56 Essential (primary) hypertensio n [facility] 2024-12-17 12:43 Epilepsy, unspecifie d, not intractable, without status epilepticus [facility] 2024-12-17 12:43 Essential (primary) hypertensio n [facility] 2024-12-17 14:13 Localization-related (focal) (partial) symptomatic epilepsy and epileptic syndromes with complex partial seizures, not intractable, without status epilepticus [facility] 2024-12-17 14:13 Epilepsy, unspecifie d, not intractable, without status epilepticus [facility] 2024-12-17 14:13 Encephalopathy, unspecified [facility] 2024-12-17 14:13 Essential (primary) hypertensio n [facility] 2024-12-17 14:13 Unspecified asthma, uncomplicat ed [facility] 2024-12-18 08:53 Localization-related (focal) (partial) symptomatic epilepsy and epileptic syndromes with complex partial seizures, not intractable, without status epilepticus [facility] 2024-12-18 08:53 Epilepsy, unspecifie d, not intractable, without status epilepticus [facility] 2024-12-18 08:53 Encephalopathy, unspecified [facility] 2024-12-18 08:53 Essential (primary) hypertensio n [facility] 2024-12-18 08:53 Unspecified asthma, uncomplicat ed [facility] 2024-12-19 10:30 Localization-related (focal) (partial) symptomatic epilepsy and epileptic syndromes with complex partial seizures, not intractable, without status epilepticus [facility] 2024-12-19 10:30 Epilepsy, unspecifie d, not intractable, without status epilepticus [facility] 2024-12-19 10:30 Encephalopathy, unspecified [facility] 2024-12-19 10:30 Essential (primary) hypertensio n [facility] 2024-12-19 10:30 Unspecified asthma, uncomplicat ed [facility] 2024-12-19 10:30 Syncope and collapse [facility] 2024-12-22 12:27 Syncope and collapse [facility] 2025-01-06 22:22 Essential (primary) hypertensio [facility] 2025-01-06 22:22 Other specified chronic obstruc tive pulmonary disease [facility] 2025-01-08 11:05 [facility] 2025-01-08 11:05 Other specified chronic obstruc tive pulmonary disease [facility] 2025-01-09 09:32 Essential (primary[facility] 2025-01-09 09:32 Other specified chronic obstruc tive pulmonary disease [facility] 2025-01-09 09:32 Cough, unspecified [facility] 2025-01-09 09:32 Dyspnea, unspecified [facility] 2025-01-09 09:32 Nasal congestion [facility] 2025-01-17 14:23 Cough, unspecified [facility] Results/Labs test date facility value unit notes Result panel 1 ETOH - ETHANOL 2024-12-16 13:44 [facility] < 10.0 mg/dl Blood Alcohol Levels Level Sporadic Drinkers Chronic drinkers 100 mg/dL Legally intoxicated* Minimal signs 200-250 mg/dL Alertness lost, Effort needed to becoming lethargic maintain emotional and motor control 300-350 mg/dL Stupor to coma Drowsy and slow >500 mg/dL Possible Coma *The legal definition of intoxication varies. This assy is for medical decision making only. As of May 2023 testing method has changed, this may include reference ranges. NUCLEATED RED BLOOD CELLS AUTO 2024-12-16 13:44 [facility] 0.0 /100wbc (missing) BASOPHILS # (AUTO) 2024-12-16 13:44 [facility] 0.0 10 3/ul (missing) EOSINOPHILS # (AUTO) 2024-12-16 13:44 [facility] 0.0 10 3/ul (missing) NRBC ABSOLUTE COUNT (AUTO) 2024-12-16 13:44 [facility] 0.00 x10 3/ul (missing) MONOCYTES # (AUTO) 2024-12-16 13:44 [facility] 0.3 10 3/ul (missing) CREATININE 2024-12-16 13:44 [facility] 0.8 mg/dl As of May 2023 test ing method has changed, this may include reference ranges. LYMPHOCYTES # (AUTO) 2024-12-16 13:44 [facility] 1.0 10 3/ul (missing) MEAN PLATELET VOLUME 2024-12-16 13:44 [facility] 10.4 fl (missing) CHLORIDE 2024-12-16 13:44 [facility] 104 mmol/l As of May 2023 test ing method has changed, this may include reference ranges. GLUCOSE 2024-12-16 13:44 [facility] 118 mg/dl As of May 2023 test ing method has changed, this may include reference ranges. BUN - BLOOD UREA NITROGEN 2024-12-16 13:44 [facility] 12 mg/dl As of May 2023 test ing method has changed, this may include reference ranges. RED CELL DISTRIBUTION WIDTH 2024-12-16 13:44 [facility] 12.2 % (missing) SODIUM 2024-12-16 13:44 [facility] 137 mmol/l As of May 2023 test ing method has changed, this may include reference ranges. HGB - HEMOGLOBIN 2024-12-16 13:44 [facility] 15.1 g/dl (missing) CARBON DIOXIDE - CO2 2024-12-16 13:44 [facility] 26 mmol/l As of May 2023 test ing method has changed, this may include reference ranges. MEAN CORPUSCULAR HEMOGLOBIN 2024-12-16 13:44 [facility] 30.0 pg (missing) PLT - PLATELET COUNT 2024-12-16 13:44 [facility] 327 10 3/ul (missing) MEAN CORPUSCULAR HGB CONC 2024-12-16 13:44 [facility] 33.1 g/dl (missing) POTASSIUM 2024-12-16 13:44 [facility] 4.0 mmol/l As of May 2023 test ing method has changed, this may include reference ranges. HCT - HEMATOCRIT 2024-12-16 13:44 [facility] 45.6 % (missing) RED BLOOD COUNT 2024-12-16 13:44 [facility] 5.03 10 6/ul (missing) NEUTROPHILS # (AUTO) 2024-12-16 13:44 [facility] 5.8 10 3/ul (missing) ANION GAP 2024-12-16 13:44 [facility] 7.0 (missing) (missing) WHITE BLOOD COUNT 2024-12-16 13:44 [facility] 7.1 x10 3/ul (missing) GFR - MDRD 2024-12-16 13:44 [facility] 71 (missing) Social History date description facility
[2025-02-25 18:59] LABS: BILIRUBIN,URINE NEGATIVE (NEGATIVE); GLUCOSE, URINE (UA) NEGATIVE (NEGATIVE); KETONES,URINE (UA) 15 mg/dL (NEGATIVE); LEUKOCYTE ESTERASE, URINE NEGATIVE (NEGATIVE); NITRITE,URINE NEGATIVE (NEGATIVE); OCCULT BLOOD,URINE NEGATIVE (NEGATIVE); PROTEIN,URINE TRACE mg/dL (NEGATIVE); UROBILINOGEN,URINE 0.2 (NORMAL) E.U./dL (NORMAL)
[2025-02-25 19:01] LABS: CLARITY,URINE CLEAR (CLEAR)
[2025-02-25 19:10] LABS: AMPHETAMINE SCREEN,URINE NEGATIVE (NEGATIVE); BARBITURATE SCREEN,UR NEGATIVE (NEGATIVE); BENZODIAZEPINES SCREEN, URINE NEGATIVE (NEGATIVE); BUPRENORPHINE SCREEN, URINE NEGATIVE (NEGATIVE); COCAINE SCREEN URINE NEGATIVE (NEGATIVE); METHADONE SCREEN, URINE NEGATIVE (NEGATIVE); METHAMPHETAMINES SCREEN, URINE NEGATIVE (NEGATIVE); OPIATE SCREEN, URINE NEGATIVE (NEGATIVE); OXYCODONE SCREEN, URINE NEGATIVE (NEGATIVE); THC CANNABINOID SCREEN, URINE NEGATIVE (NEGATIVE); TRICYCLIC ANTIDEPRESSANT,URINE NEGATIVE (NEGATIVE)
[2025-02-25] MEDS ORDERED: levETIRAcetam 500 MG/5 ML VIAL ONE (19:53)
[2025-02-25] MEDS: levETIRAcetam INJ 1,000 MG in SODIUM CHLORIDE 0.9% 100ML 100 ML IV STA (20:00)
--- NOTE | 2025-02-25 20:47 | CT Report ---
PROCEDURE: CT Head WO INDICATIONS: hx of seizure TECHNIQUE: Noncontrast 4.5 mm thick angled axial sections acquired from the foramen magnum to the vertex. For r adiation dose reduction, the following was used: automated exposure control, adjustment of mA and/or kV according to patient size. COMPARISON: 12/16/2024 FINDINGS: Image quality: Excellent. CSF spaces: Basal cisterns are patent. No extra-axial fluid collections. Ventricles are normal in size and shape. Brain: No midline shift. No intracranial masses or hemorrhage. Weiner-white matter interface is norm al. Skull and face: Calvarium and visualized facial bones are intact, without suspicious lesions. Sinuses: Visualized sinuses and mastoids are clear. IMPRESSION: No acute intracranial pathology. Reviewed by: Thuy Valdovinos MD on 02/25/2025 8:46 PM PDT Approved by: Thuy Valdovinos MD on 02/25/2025 8:46 PM PDT Station ID: [id number]
[2025-02-25] MEDS: levETIRAcetam INJ 500 MG in SODIUM CHLORIDE 0.9% 100ML 100 ML IV STA (21:20)
--- NOTE | 2025-02-25 22:08 | HISTORY & PHYSICAL EXAMINATION ---
Chief Complaint Chief Complaint Chief Complaint: Seizure History of Present Illness Admitted From Admitted From:: ER History Obtained From Records Reviewed: Yes History obtained from: Pt, staff, chart Exam Limitations: Virtual exam, pt decreased memory History of Present Illness HPI Comment/Other: H&P was conducted via video remotely, using [employer]. Patient is in ID. Physician is in ID. No one is at bedside. 69 yo F with PMH of childhood meningitis with residual neurological deficits, Seizure D/o, HTN presented to the ER s/p witnessed seizure. Pt lives at [facility] independently with her dog. She remembers taking Keppra in the past, but says that she currently takes no medications. She says that the [facility] staff do not help her with ADLS, as she does not need it. Today, she was out walking her dog when she started to have what appeared to be a seizure to a passerby, who helped her to the ground. Pt had LOC with seizure activity. Passerby called EMS. Per EMS, pt had another partial sz enroute. Pt has no memory of the seizure or of EMS. She does not remember anything after walking her dog. No H/A, CP/SOB, F/C, abdo pain, N/V. Pt says that she feels at her baseline with R shoulder pain since 2001, no other complaints. In the ER, BP 164/102, Na 132 CT Head: No acute intracranial pathology. Pt had an episode of staring/possible absence sz in the ER per ER Provider. Pt was given Keppra 1000 mg IV in the ER. Review of Systems Status of ROS: 10 or more systems reviewed and unremarkable except as noted in history and below [facility] Active Problems All Active Problems (Updated 02/25/25 @ 21:51 by Marine Mendoza PA-C) Post-ictal confusion (Acute) Seizure (Acute) Hypertension (Acute) Chronic recurrent bronchiolitis (Acute) Acute dyspnea (Acute) Asthma (Acute) Seizure disorder (Acute) Acute exacerbation of COPD with asthma (Acute) Dyspnea (Acute) Elevated blood pressure reading (Acute) Syncope (Acute) Hyperkalemia (Acute) Head contusion (Acute) Dehydration (Acute) Rhabdomyolysis (Acute) Multiple contusions (Acute) Injury resulting from fall from height (Acute) Accident due to mechanical fall without injury (Acute) Fall at home (Acute) Leukocytosis (Acute) Hyponatremia (Acute) Seizure (Acute) Altered mental status (Acute) TIA (transient ischemic attack) (Acute) Hypertension (Acute) Medical History Medical History (Updated 02/25/25 @ 21:51 by Marine Mendoza PA-C) Uterine fibroid resolved with hysterectomy Meningitis spinal Diagnosed at 6 months old, fever 106. Surgical History Surgical History H/O hysterectomy with oophorectomy Due to uterine fibroids Social History Social History Smoking Status: Never smoker Do you dip or chew tobacco?: No Do you vape?: No Patient requests smoking cessation consult: No Initiate information on smoking cessation: No Living arrangement: At home Living Condition: Alone Relationship: Level: Assisted Do you feel safe in your home environment?: Yes Suffered physical, verbal, emotional, or financial abuse?: No History of Abuse: No ETOH Use: Wine Frequency: Weekly Number of Amount/day: 5 POLST Patient has POLST: No POLST Status: Full Code Meds/Allgy Home Medications Ambulatory Orders Medication Instructions Recorded Confirmed levetiracetam 250 mg tablet 500 mg (2 x 250 mg) PO BID 30 days 12/17/24 #120 tabs losartan 50 mg tablet 50 mg PO DAILY #30 tabs 12/17/24 albuterol sulfate 90 mcg/actuation 2 puff inhalation QID PRN 01/06/25 aerosol inhaler (Ventolin HFA) shortness of breath or wheezing #8.5 grams dexamethasone 2 mg tablet 2 mg PO DAILY #7 tabs 01/06/25 losartan 50 mg tablet 50 mg PO DAILY #30 tabs 01/06/25 Allergies Allergies Allergy/AdvReac Type Severity Reaction Status Date / Time No Known Drug Allergies Allergy Verified 12/16/24 13:50 Exam Constitutional normal general appearance HENMT normocephalic and head/scalp atraumatic Eyes EOMs intact bilaterally and no scleral icterus Respiratory cart stethoscope not working; per ER Provider: CTA B/L Cardiovascular cart stethoscope not working; per ER Provider: RRR, no murmurs Gastrointestinal per ER Provider: non-distended, NT, Soft Extremities per ER Provider: moves all extrem, no edema Neurology A+Ox (not time), decreased memory, normal speech, cooperative; per ER Provider: NFD Conclusion/Plan Problem List (1) Seizure: Plan: Seizure Seizure D/o NC with medications/off seizure meds H/o childhood meningitis with residual neurological deficits -CT Head: No acute intracranial pathology. -Pt was given Keppra 1000 mg IV in the ER. -admit to Obs/Med tele -neuro checks -restart home medication: Keppra -SW consult to contact [facility] to see if they can arrange help for pt to remember to take her medications and F/U with doctors Hyponatremia -Na 132 -IVF HTN NC with meds/off meds -BP 164/102 -restart home medication: Losartan Asthma -Albuterol PRN VTE Prophylaxis: Lovenox Code Status: D/W pt; she is Full Code ~Melanie Gray MD Hospitalist Lab Results Lab results reviewed: Yes 02/25/25 17:52 02/25/25 17:52
[2025-02-25] MEDS ORDERED: ONDANSETRON 4 MG/2 ML VIAL IVP PRN (22:10)
[2025-02-25] MEDS ORDERED: ONDANSETRON ODT 4 MG TABLET TL PRN (22:10)
[2025-02-25] MEDS ORDERED: SODIUM CHLORIDE FLUSH 0.9% 10 ML SYRINGE IVP PRN (22:10)
[2025-02-25] MEDS: SODIUM CHLORIDE 0.9% 1,000 ML IV SCH (23:06)
[2025-02-25] MEDS ORDERED: ALBUTEROL NEB 2.5 MG/3 ML INH PRN (23:17)
--- NOTE | 2025-02-25 23:44 | XRAY Report ---
PROCEDURE: XR Shoulder 2+V RT INDICATIONS: right shoulder pain TECHNIQUE: 3 views of the shoulder were acquired. COMPARISON: None. FINDINGS: Bones: Shoulder arthroplasty components are in place. No periprosthetic fractures are lucency. No ev idence of shoulder dislocation or separation. The visible rib arcs are normal. Soft tissues: No suspicious soft tissue calcifications. The visualized lungs are within normal limi ts. IMPRESSION: No acute bony abnormality. Reviewed by: Thuy Valdovinos MD on 02/25/2025 11:43 PM PDT Approved by: Thuy Valdovinos MD on 02/25/2025 11:43 PM PDT Station ID: [id number]
[2025-02-26] MEDS: SODIUM CHLORIDE FLUSH 0.9% 10 ML SYRINGE IVP SCH (01:00)
[2025-02-26] MEDS: ACETAMINOPHEN 325 MG TABLET PO PRN (04:43)
[2025-02-26 05:19] LABS: BASOPHILS % (AUTO) 0.4 %; EOSINOPHILS # (AUTO) 0.1 10^3/uL (0.0-0.7); EOSINOPHILS % (AUTO) 0.6 %; HGB - HEMOGLOBIN 12.5 g/dL (12.0-16.0); LYMPHOCYTES # (AUTO) 1.9 10^3/uL (1.5-3.5); LYMPHOCYTES % (AUTO) 19.8 %; MEAN CORPUSCULAR HEMOGLOBIN 29.8 pg (27.0-31.0); MEAN CORPUSCULAR HGB CONC 32.9 g/dL (32.0-36.0); MEAN CORPUSCULAR VOLUME 90.5 fL (81.0-99.0); MEAN PLATELET VOLUME 10.7 fL (7.9-10.8); MONOCYTES # (AUTO) 0.8 10^3/uL (0.0-1.0); MONOCYTES % (AUTO) 8.2 %; NEUTROPHILS # (AUTO) 6.6 10^3/uL (1.5-6.6); NEUTROPHILS % (AUTO) 70.6 %; PLT - PLATELET COUNT 287 10^3/uL (130-450); RED CELL DISTRIBUTION WIDTH 12.4 % (12.0-15.0); WHITE BLOOD COUNT 9.4 x10^3/uL (4.8-10.8)
[2025-02-26 05:27] LABS: MAGNESIUM 1.9 mg/dL (1.7-2.3)
[2025-02-26 05:33] LABS: CALCIUM 9.5 mg/dL (8.5-10.3); CREATININE 0.8 mg/dL (0.6-1.3); POTASSIUM 4.1 mmol/L (3.5-4.5)
[2025-02-26 05:44] VITALS: TEMP 97.9
[2025-02-26] MEDS: ENOXAPARIN 40 MG/0.4 ML SYRINGE SUBQ SCH (08:07)
[2025-02-26] MEDS: levETIRAcetam 250 MG TABLET PO SCH (08:07)
[2025-02-26] MEDS: LOSARTAN 50 MG TABLET PO SCH (08:07)
[2025-02-26 08:44] VITALS: O2SAT 98
--- NOTE | 2025-02-26 09:54 | PHARMACY PROGRESS NOTE ---
Best Possible Medication History Admit Date and Time: 02/25/258 Home Medications Medication Instructions Recorded Confirmed Type No Known Home Medications 02/26/25 02/26/25 History Processed by: Pharmacy (Medication Reconciliation completed by Coater HelperYulia.) Medications reviewed in ED?: No Medication History completed: Yes Patient Interview: Completed Secondary Source(s): Insurance records [facility] Statement: As the person ultimately responsible for medication therapy, providers are able to order a medication from an existing home medication list in [facility] via the "Reconcile Routine" prior to Confirmation of that medication by patient support associate. Such practice is discouraged except when the physician, in their clinical judgment, deems that a medical need exists for a medication without regard to previous use.
[2025-02-26 11:21] VITALS: BP 147/89
--- NOTE | 2025-02-26 13:54 | Discharge Summary ---
Discharge Summary Admit Date: 02/25/25 Discharge Date: 02/26/25 Discharging Provider: Suleiman Gauthier NP Primary Care Provider: She has no PCP, gets her care from walk-in clinic Code Status: Attempt Resuscitation DIAGNOSES Admission Diagnoses: Unspecified convulsions Hypoosmolality and hyponatremia Essential hypertension Asthma Discharge Diagnoses with Status of Each Condition: Unspecified convulsions. Due to noncompliance. She has been counseled on this and given a new prescription Hyperosmolality and hyponatremiastable at 132, follow-up with PCP Essential hypertensionhave given her a new prescription for lisinopril, she should follow-up with PCP Asthmachronic HPI History of Present Illness: 69 yo F with PMH of childhood meningitis with residual neurological deficits, Seizure D/o, HTN presented to the ER s/p witnessed seizure. [place] [facility] [place] She remembers taking Keppra in the past, but says that she currently takes no medications. She says that the [facility] staff do not help her with ADLS, as she does not need it. Today, she was out walking her dog when she started to have what appeared to be a seizure to a passerby, who helped her to the ground. Pt had LOC with seizure activity. Passerby called EMS. Per EMS, pt had another partial sz enroute. Pt has no memory of the seizure or of EMS. She does not remember anything after walking her dog. No H/A, CP/SOB, F/C, abdo pain, N/V. Pt says that she feels at her baseline with R shoulder pain since 2001, no other complaints. In the ER, BP 164/102, Na 132 CT Head: No acute intracranial pathology. Pt had an episode of staring/possible absence sz in the ER per ER Provider. Pt was given Keppra 1000 mg IV in the ER. HOSPITAL COURSE Hospital Course: She was loaded with 1 g of Keppra in the ER. She had no more seizure events overnight. Given that this is due to medication noncompliance, she is medically cleared today. I wrote her for 30 days of Keppra and instructed her to establish herself with a primary care provider ALLERGIES Allergies Allergy/AdvReac Type Severity Reaction Status Date / Time No Known Drug Allergies Allergy Verified 12/16/24 13:50 MEDICATIONS Ambulatory Orders Medication Instructions Recorded Confirmed levetiracetam 250 mg tablet 500 mg (2 x 250 mg) PO BID 30 days 02/26/25 #120 tabs losartan 50 mg tablet 50 mg PO DAILY 30 days #30 tabs 02/26/25 PHYSICAL EXAM AT DISCHARGE General Appearance: positive No acute distress and Alert Eyes Bilateral: positive Normal inspection and PERRL ENT: positive ENT inspection nml Neck: positive Nml inspection Respiratory: positive Chest non-tender and No respiratory distress Cardiovascular: positive Regular rate & rhythm and No murmur Peripheral Pulses: positive 2+ Abdomen: positive Non-tender Skin: positive Color nml Extremities: positive Non-tender Neurologic/Psychiatric: positive Oriented x3 LABS 02/26/25 04:56 02/26/25 04:56 FOLLOW UP Follow Up: With PCP TIME SPENT Time Spent in Discharge (Minutes): 35 Discharge Plan Discharge Patient Disposition: Home, Self Care Condition: Stable Medically Cleared Date:: 02/26/25 Prescriptions: New levetiracetam 250 mg Tablet 500 mg PO BID 30 Days Qty: 120 0RF losartan 50 mg Tablet 50 mg PO DAILY 30 Days Qty: 30 0RF Diet: Regular Health Concerns: You came into the hospital because you had a seizure. You keep having seizures because you are not taking your antiseizure meds. I am sending you home with a new prescription for your Keppra. Please take this Keppra as directed as well as your losartan for your blood pressure. Please follow-up with primary care provider. Please do not drive until directed otherwise by your primary care provider I cannot emphasize this enough, you need to see a primary care doctor to continue your Keppra. When Keppra runs out that I wrote for you and is no longer in your system you WILL have another seizure Print Language: Georgian Patient Instructions: Levetiracetam tablets Stand Alone Forms: PCP List
== END 2025-02-26 14:25 | disposition home or self-care (01) ==
LOC: MS2 17:30 → ED 17:30 → MS2 23:05
PROVIDERS: ADMIT Internal Medicine; ATTEND Internal Medicine
DX: G40.909 Epilepsy, unspecified, not intractable, without status epilepticus; J45.909 Unspecified asthma, uncomplicated; I10 Essential (primary) hypertension; T42.6X6A Underdosing of other antiepileptic and sedative-hypnotic drugs, initial encounter; E87.1 Hypo-osmolality and hyponatremia; G09 Sequelae of inflammatory diseases of central nervous system; R41.3 Other amnesia; Z91.128 Patient's intentional underdosing of medication regimen for other reason; M25.511 Pain in right shoulder